=== PATIENT | female | born 1970 | race Caucasian/White ===

== ENCOUNTER 2020-09-08 16:14 | Outpatient (REF) | payer OTHER, SELFPAY ==
[2020-09-08 17:58] LABS: COVID-19 Test Negative (Negative)
== END 2020-09-08 16:15 | disposition home or self-care (01) ==
LOC: HO.LAB 16:14
PROVIDERS: Visit Provider Internal Medicine
DX: Z20.828 Contact with and (suspected) exposure to other viral communicable diseases (principal)
CPT/HCPCS: 87635; C9803

== ENCOUNTER 2021-05-05 08:21 | Outpatient (REF) | payer OTHER, SELFPAY ==
--- NOTE | ~2021-05-05 | MM_ITS ---
EXAMINATION: MM SCREENING DIGITAL BREAST TOMOSYNTHESIS, BILATERAL CLINICAL INFORMATION: Screening. Asymptomatic. The lifetime risk of breast cancer based on the Tyrer-Cuzick Model is 9%. COMPARISON: Mammography: 11/27/2019, outside mammography 02/21/2016, 05/15/2012 ([facility]) TECHNIQUE: Digital breast tomosynthesis is performed in both the craniocaudal and mediolateral oblique views along with computer-aided detection (CAD). Synthesized 2D images are generated from the tomosynthesis. FINDINGS: There are scattered areas of fibroglandular density (ACR BI-RADS breast composition Category b). There are no significant masses, abnormal calcifications, or other abnormalities. There are some small intramammary nodes again seen posterior and central right breast. The axilla and skin contours are unremarkable. No significant changes. MM/MM tomosynthesis screening BI IMPRESSION: No mammographic evidence of malignancy. ASSESSMENT: BI-RADS 2: Benign RECOMMENDATION: Routine annual mammography screening. This patient's information was entered into a reminder system with a target due date for their next mammogram.
== END 2021-05-05 08:22 | disposition home or self-care (01) ==
LOC: HO.MAMMO 08:21
PROVIDERS: PCP Hospitalist; Visit Provider Hospitalist
DX: Z12.31 Encounter for screening mammogram for malignant neoplasm of breast (principal)
CPT/HCPCS: 77063; 77067

== ENCOUNTER 2021-12-25 12:27 | Outpatient (REF) | payer OTHER, SELFPAY | END 2021-12-25 12:28 | disposition home or self-care (01) | LOC: HO.WFDLNP 12:27 | PROVIDERS: Visit Provider Hospitalist | DX: R89.0 Abnormal level of enzymes in specimens from other organs, systems and tissues (principal); R82.90 Unspecified abnormal findings in urine | CPT/HCPCS: 87086; 87147 ==

== ENCOUNTER 2021-12-26 07:53 | Outpatient (REF) | payer OTHER, SELFPAY ==
[2021-12-26 11:47] LABS: Hematocrit 44.2 % (37.0-47.0); Hemoglobin 14.7 g/dl (12.0-16.0); Mean Corpuscular HGB Conc 33.3 g/dl (31.0-35.0); Mean Corpuscular Hemoglobin 30.2 pg (27.0-33.0); Mean Corpuscular Volume 90.8 fL (80.0-98.0); Platelet Count 266 X10*3/uL (160-400); Red Blood Count 4.87 X10*6/uL (4.20-5.50); Red Cell Distribution Width 13.5 % (11.0-16.0); White Blood Count 3.8 X10*3/uL (4.8-10.8)
[2021-12-26 12:34] LABS: TSH reflex Free T4 1.15 uIU/mL (0.32-4.0)
[2021-12-26 12:51] LABS: Alanine Aminotransferase 8 U/L (0-31); Albumin Level 4.3 g/dL (3.5-5.0); Alkaline Phosphatase 78 U/L (39-117); Anion Gap 17 (12-20); Aspartate Amino Transferase 16 U/L (5-31); Bilirubin Total 0.8 mg/dL (0.0-1.0); Blood Urea Nitrogen 15 mg/dL (9-16); Calcium 9.5 mg/dL (8.4-10.2); Carbon Dioxide 23 mmol/L (22-29); Chloride 103 mmol/L (96-108); Cholesterol 216 mg/dL; Estimated Glomerular Filt Rate > 60; Glucose Fasting 83 mg/dL (60-99); HDL Cholesterol 50 mg/dL; LDL Cholesterol Calculated 152 mg/dl; Potassium 4.5 mmol/L (3.3-5.1); Sodium 138 mmol/L (135-145); Total Protein 7.5 g/dL (6.5-8.0); Triglycerides 70 mg/dL
== END 2021-12-26 07:54 | disposition home or self-care (01) ==
LOC: HO.WFDLDS 07:53
PROVIDERS: Visit Provider Hospitalist
DX: Z00.00 Encounter for general adult medical examination without abnormal findings (principal)
CPT/HCPCS: 36415; 80053; 80061; 84443; 85027

== ENCOUNTER 2022-02-13 08:24 | Outpatient (REF) | payer OTHER, SELFPAY ==
[2022-02-13 11:54] LABS: Baso%MD 0.7 %; Eos%MD 0.9 %; Hematocrit 42.7 % (37.0-47.0); Hemoglobin 14.6 g/dl (12.0-16.0); IG%MD 0.2 %; Mean Corpuscular HGB Conc 34.2 g/dl (31.0-35.0); Mean Corpuscular Hemoglobin 30.4 pg (27.0-33.0); Mono%MD 8.8 %; Neut%MD 67.4 %; Platelet Count 264 X10*3/uL (160-400); Red Cell Distribution Width 13.3 % (11.0-16.0); White Blood Count 5.6 X10*3/uL (4.8-10.8)
[2022-02-13 12:17] LABS: Alanine Aminotransferase 11 U/L (0-31); Albumin Level 4.2 g/dL (3.5-5.0); Alkaline Phosphatase 81 U/L (39-117); Anion Gap 13 (12-20); Aspartate Amino Transferase 12 U/L (5-31); Bilirubin Total 0.6 mg/dL (0.0-1.0); Blood Urea Nitrogen 11 mg/dL (9-16); Calcium 9.5 mg/dL (8.4-10.2); Carbon Dioxide 24 mmol/L (22-29); Chloride 107 mmol/L (96-108); Estimated Glomerular Filt Rate > 60; Glucose Random 88 mg/dL (60-115); Iron 102 mcg/dL (30-160); Percent Iron Saturation 29 % (15-50); Sodium 140 mmol/L (135-145); Total Iron Binding Capacity 348 mcg/dL (228-428); Unsaturated Iron Binding 246 ug/dL
[2022-02-13 12:38] LABS: Ferritin 35 ng/mL (10-250)
[2022-02-13 13:45] LABS: Band Neutrophils Percent 1 % (3-5); Eosinophils Absolute Manual 0.1 X10*3/uL (0.0-0.4); Eosinophils Percent Manual 1 % (0-4); Lymphocytes Absolute Manual 1.2 X10*3/uL (1.2-4.9); Lymphocytes Percent Manual 22 % (20-40); Monocytes Absolute Manual 0.3 X10*3/uL (0.1-1.2); Monocytes Percent Manual 5 % (2-11); Neutrophils Percent Manual 71 % (45-73)
[2022-02-13 13:46] LABS: Large Platelet PRESENT; Platelet Estimate NORMAL (NORMAL); Platelet Morphology Comment NOTED; RBC Morphology NORMAL
== END 2022-02-13 08:25 | disposition home or self-care (01) ==
LOC: HO.LAB 08:24
PROVIDERS: PCP Hospitalist; Visit Provider Nurse Practitioner Family
DX: G35 Multiple sclerosis (principal); R25.1 Tremor, unspecified; R53.83 Other fatigue; Z88.0 Allergy status to penicillin; Z79.899 Other long term (current) drug therapy
CPT/HCPCS: 36415; 80053; 82728; 83540; 85007; 85027

== ENCOUNTER 2022-02-27 16:23 | Outpatient (REF) | payer OTHER, SELFPAY ==
--- NOTE | ~2022-02-27 | MR_ITS ---
EXAMINATION: MR BRAIN WITHOUT AND WITH CONTRAST CLINICAL INFORMATION: Multiple sclerosis. COMPARISON: Brain MRI 10/09/2019. TECHNIQUE: Multiplanar, multisequence imaging of the brain was performed before and after the intravenous administration of 7.5 mL of Gadavist. FINDINGS: Multiple scattered foci of T2/FLAIR hyperintensity are seen within the periventricular and deep cerebral white matter. There is prominent ovoid focus of T2/FLAIR signal juxtacortical to the corpus callosum. The signal abnormality appears stable compared with 10/09/2019 without evidence of new or progressive abnormalities. No abnormal enhancement is seen. There is no acute infarction, hemorrhage, mass, or extra-axial fluid collection. The ventricular caliber is stable without hydrocephalus. No progressive volume loss is seen. The major arterial flow voids are preserved at the skull base. The orbital contents appear normal. The extracranial structures are within normal limits. MR/MR head/brain wo/w con IMPRESSION: Foci of signal abnormality within the supratentorial white matter appear stable compared with prior and compatible with demyelinating plaques. No evidence of abnormal enhancement. No progressive changes compared with 2019.
== END 2022-02-27 16:24 | disposition home or self-care (01) ==
LOC: HO.MRI 16:23
PROVIDERS: Visit Provider Nurse Practitioner Family
DX: G35 Multiple sclerosis (principal); R25.1 Tremor, unspecified
CPT/HCPCS: 70553; A9585

== ENCOUNTER 2022-03-19 09:41 | Day surgery (SDC) | payer OTHER, SELFPAY ==
[2022-03-13 19:35] VITALS: BMI 29.0
--- NOTE | 2022-03-16 12:35 | HO.ANESPROP2 ---
Documented by User: Shazia Cole NP 03/16/22 12:47 HPI - Anesthesia Eval Consult details Narrative: 51yo F for Colonoscopy PMFSH Active Problems Active Problems: All Active Problems (Updated 03/14/22 @ 09:40 by Michelle Julio RN) Multiple sclerosis (Acute) Fatigue (Acute) Normal physical exam (Acute) Overweight (Acute) Chronic GERD (Acute) Abnormal urinalysis (Acute) Tremor (Acute) Restless leg syndrome (Acute) Past Medical History Medical History Chronic constipation GERD (gastroesophageal reflux disease) Multiple sclerosis Palpitations Family History Family History Other Mental health disorder Substance use disorder Surgical History Surgical History History of endometrial ablation Social History Social History (Updated 02/13/22 @ 08:43 by Brian Quiroga) Housing: House Alcohol intake: never Patient Tobacco Use Status: Never used Tobacco Are you DNR?: No Advance Directives: No Advance Directives Information Provided: No Advance Directives on File: No Recently lost weight without trying: No Nutrition Risks: No Nutritional Risk Patient : No Current occupational status: employed Meds Allergies Allergy/AdvReac Type Severity Reaction Status Date / Time Penicillins [PENICILLINS] Allergy Intermediate RASH Verified 03/19/22 10:25 Home Medications Medication Instructions Recorded Confirmed Last Taken Type omeprazole 20 mg capsule,delayed 40 mg PO BID cap 02/13/22 03/13/22 03/19/22 04:30 History release ferrous sulfate 325 mg (65 mg 325 mg PO DIRECTED 03/19/22 03/19/22 Unknown History iron) tablet Exam Exam Date and Time: March 16, 2022 1235 Height,Weight and Vital Signs: Height 5 ft 3 in Weight 74.389 kg Pertinent Lab Results Pertinent Lab Results: Laboratory Tests 02/13/22 02/13/22 10:26 10:26 WBC 5.6 Hgb 14.6 Hct 42.7 Plt Count 264 Sodium 140 Potassium 4.0 Chloride 107 Carbon Dioxide 24 BUN 11 Creatinine 0.72 Assessment and Plan Assessment Anesthesia Assessment: Chart Reviewed Documented by User: Julisa Alvarenga MD 03/19/22 10:57 [facility] Past Medical History Medical History Chronic constipation GERD (gastroesophageal reflux disease) Multiple sclerosis Palpitations Family History Family History Other Mental health disorder Substance use disorder Family history of problems with anesthesia: No Surgical History Surgical History History of endometrial ablation History of Problems with Anesthesia: No Social History Social History (Updated 02/13/22 @ 08:43 by Brian Quiroga) Housing: House Alcohol intake: never Patient Tobacco Use Status: Never used Tobacco Are you DNR?: No Advance Directives: No Advance Directives Information Provided: No Advance Directives on File: No Recently lost weight without trying: No Nutrition Risks: No Nutritional Risk Patient : No Current occupational status: employed Meds Allergies Allergy/AdvReac Type Severity Reaction Status Date / Time Penicillins [PENICILLINS] Allergy Intermediate RASH Verified 03/19/22 10:25 Home Medications Medication Instructions Recorded Confirmed Last Taken Type omeprazole 20 mg capsule,delayed 40 mg PO BID cap 02/13/22 03/13/22 03/19/22 04:30 History release ferrous sulfate 325 mg (65 mg 325 mg PO DIRECTED 03/19/22 03/19/22 Unknown History iron) tablet Exam Airway Mallampati Class: II (Top permanent bridge 2 teeth) TM Dist: >3cm Neck ROM: Full Heart: rrr Lungs: cta Assessment and Plan Assessment Anesthesia Assessment: Anesthesia Plan Discussed and Chart Reviewed Final Anesthetic Review Family History of Problems with Anesthesia: No History of Problems with Anesthesia: No NPO: Yes ASA Class: II Final Preanesthetic Review: No Changes in Pt Med Stat, Meds/Allgs Chart Reviewed and Consent Obtained/Reviewed Patient Risk: Intermediate Procedure Risk: Intermediate Anesthetic Plan Anesthetic Plan: MAC: Disposition: Standard PACU
[2022-03-19 10:25] VITALS: BP 147/92; PULSE 87; RESP 15; TEMP 37; O2SAT 98
[2022-03-19] MEDS: Lactated Ringers 1,000 ML 100 ML IVCONT (10:42)
--- NOTE | 2022-03-19 10:57 | MHC.SHP ---
Pre-Procedural Eval Section A Date of Service: 03/19/22 The patient is an INPATIENT: No The History & Physical has been completed within 30 days and I have reviewed it.: No Section B Chief Complaint: screening Details of Present Illness: Colon cancer screening Relevant Family History (Specify if Yes): Yes Relevant Social History: None Present Medications: see Short Stay Collaborative assessment Medical History: Significant History (MS, RSS, GERD) History of Previous Operations: Relevant previous surgery/procedure and date(s) (History of endometrial ablation) Allergies: Allergies Allergy/AdvReac Type Severity Reaction Status Date / Time Penicillins [PENICILLINS] Allergy Intermediate RASH Verified 03/19/22 10:25 Review of Systems Sugical H&P ROS: Negative: Constitution, Cardiovascular and Respiratory and Yes, Specify: Gastrointestinal (chronic constipation) Exam Surgical H&P Exam: Normal: Heart, Normal: Lungs, Normal: Extremities and Normal: Abdomen Plan Diagnosis/Plan: Unchanged I have reviewed the history and physical and performed a pertinent physical examination on my patient. No changes have occurred unless specified.
--- NOTE | 2022-03-19 10:59 | PM.OP ---
Brief Operative Note Date of Service: 03/19/22 Pre-op diagnosis: Colon cancer screening, chronic constipation, family history of colon polyps Post-op diagnosis: other (Colon polyps, diverticulosis, hemorrhoids) Procedure: COLONOSCOPY TILL CECUM WITH BIOPSIES AND SNARE POLYPECTOMY Consent: Indications for the procedure and potential complications of bleeding, perforation, reaction to medications and missed diagnosis were discussed with the patient and informed consent was obtained. Instrument: Olympus PCF H 190 L variable stiffness pediatric colonoscope Monitoring: Vital signs and clinical assessment, intermittent blood pressure monitoring, continuous EKG monitoring, Pulse oximetry and Carbon Dioxide monitoring were done throughout the procedure. Colon withdrawl time was 19 minutes. Procedure: The patient was placed in the left lateral decubitis position and pre-procedure medications were administered. After a digital rectal examination of the ano-rectum, the video colonoscope was inserted into the rectum and advanced through the colon to the cecum. The colonoscope was slowly withdrawn in a retrograde panoramic fashion and the colon mucosa was carefully examined including a retroflexed view of the rectum. Findings and interventions are described below. Procedure Difficulty: Colon was long and tortuous and there was some loop formation Findings: Terminal Ileum: Not evaluated Cecum: Normal Ascending Colon: Normal Transverse Colon: A 4-5 mm sessile polyp removed with a cold biopsy Descending Colon: Moderate diverticulosis Sigmoid Colon: Moderate diverticulosis Rectum: A 10 mm sessile polyp removed with the cold snare Ano-rectum: Small internal hemorrhoids Colon preparation: Excellent Impression and Post Procedure Diagnosis: Colonoscopy Findings: Two small to medium sized polyps removed Moderate diverticulosis seen in the left colon Small hemorrhoids on retroflexed exam. Plan: Letter will be sent pathology results Repeat Colonoscopy interval based on path results - in 5 years if polyps are adenomatous and due to family hx of colon polyps. (Adult colonoscope for future colonoscopies) Colon polyps and diverticulosis handouts were given in the discharge area Surgeon: hSaree Mares MD Anesthesia: MAC (Dr Lopez) Was an Diplomatic Officer used for this Procedure?: Yes Diplomatic Officer: Kwame Ortega Estimated blood loss (mL): 0 Pathology: other (A. TRANSVERSE COLON POLYP B- RECTAL POLYP) Condition: stable Disposition: PACU
--- NOTE | 2022-03-19 11:02 | W.PM.OPN ---
Operative Note Operative Note Date of Service: 03/19/22 Narrative: Pre-op diagnosis: Colon cancer screening, chronic constipation, family history of colon polyps Post-op diagnosis:?other (Colon polyps, diverticulosis, hemorrhoids) Procedure: COLONOSCOPY TILL CECUM WITH BIOPSIES AND SNARE POLYPECTOMY Consent: Indications for the procedure and potential complications of bleeding, perforation, reaction to medications and missed diagnosis were discussed with the patient and informed consent was obtained. Instrument: Olympus PCF H 190 L variable stiffness pediatric colonoscope Monitoring: Vital signs and clinical assessment, intermittent blood pressure monitoring, continuous EKG monitoring, Pulse oximetry and Carbon Dioxide monitoring were done throughout the procedure. Colon withdrawl time was 19 minutes. Procedure: The patient was placed in the left lateral decubitis position and pre-procedure medications were administered. After a digital rectal examination of the ano-rectum, the video colonoscope was inserted into the rectum and advanced through the colon to the cecum. The colonoscope was slowly withdrawn in a retrograde panoramic fashion and the colon mucosa was carefully examined including a retroflexed view of the rectum. Findings and interventions are described below. Procedure Difficulty:? Colon was long and tortuous and there was some loop formation Findings: Terminal Ileum: Not evaluated Cecum:? Normal Ascending Colon:? Normal Transverse Colon:? A 4-5 mm sessile polyp removed with a cold biopsy Descending Colon:? Moderate diverticulosis Sigmoid Colon:? Moderate diverticulosis Rectum:? A 10 mm sessile polyp removed with the cold snare Ano-rectum:? Small internal hemorrhoids Colon preparation: Excellent ? Impression and Post Procedure Diagnosis: Colonoscopy Findings: Two small to medium sized polyps removed Moderate diverticulosis seen in the left colon Small hemorrhoids on retroflexed exam. Plan: Letter will be sent pathology results Repeat Colonoscopy interval based on path results - in 5 years if polyps are adenomatous and due to family hx of colon polyps. (Adult colonoscope for future colonoscopies) Colon polyps and diverticulosis handouts were given in the discharge area Surgeon: Sharee Mares MD Anesthesia:?MAC (Dr Lopez) Was an Learning And Development Assistant used for this Procedure?:?Yes Learning And Development Assistant:?Kwame Ortega Estimated blood loss (mL):?0 Pathology:?other (A. TRANSVERSE COLON POLYP? B- RECTAL POLYP) Condition:?stable Disposition:?PACU
[2022-03-19 11:48] VITALS: BP 113/75; PULSE 83; RESP 16; TEMP 36.6; O2SAT 99
[2022-03-19 12:03] VITALS: BP 138/76; PULSE 60; RESP 16; TEMP 36.2; O2SAT 100
== END 2022-03-19 12:49 | disposition home or self-care (01) ==
PROVIDERS: PCP Hospitalist; Visit Provider Internal Medicine Gastroenterology
PROC: 0DJD8ZZ Inspection of Lower Intestinal Tract, Via Natural or Artificial Opening Endoscopic (ICD-10-PCS; CPT 45378; principal; 2022-03-19 11:00)
DX: Z12.11 Encounter for screening for malignant neoplasm of colon (principal); Z83.71 Family history of colonic polyps; D12.8 Benign neoplasm of rectum; K63.5 Polyp of colon; K59.09 Other constipation; K57.30 Diverticulosis of large intestine without perforation or abscess without bleeding; K64.8 Other hemorrhoids; G35 Multiple sclerosis; R53.83 Other fatigue; K21.9 Gastro-esophageal reflux disease without esophagitis; E66.3 Overweight; Z68.29 Body mass index [BMI] 29.0-29.9, adult; Z79.899 Other long term (current) drug therapy; Z88.0 Allergy status to penicillin
CPT/HCPCS: 45385; 45380; 88305

== ENCOUNTER 2022-05-11 07:24 | Outpatient (REF) | payer OTHER, SELFPAY ==
--- NOTE | ~2022-05-11 | MM_ITS ---
EXAMINATION: MM SCREENING DIGITAL BREAST TOMOSYNTHESIS, BILATERAL CLINICAL INFORMATION: Screening. Asymptomatic. The lifetime risk of breast cancer based on the Tyrer-Cuzick Model is 9%. COMPARISON: Mammography: 05/05/2021, 11/27/2019, 02/21/2016 TECHNIQUE: Digital breast tomosynthesis is performed in both the craniocaudal and mediolateral oblique views along with computer-aided detection (CAD). Synthesized 2D images are generated from the tomosynthesis. FINDINGS: There are scattered areas of fibroglandular density (ACR BI-RADS breast composition Category b). There are no significant masses, abnormal calcifications, or other abnormalities. Parenchymal pattern is similar to prior exams. No developing density. No significant changes. MM/MM tomosynthesis screening BI IMPRESSION: No mammographic evidence of malignancy. ASSESSMENT: BI-RADS 1: Negative RECOMMENDATION: Routine annual mammography screening. This patient's information was entered into a reminder system with a target due date for their next mammogram.
== END 2022-05-11 07:25 | disposition home or self-care (01) ==
LOC: HO.MAMMO 07:24
PROVIDERS: PCP Hospitalist; Visit Provider Hospitalist
DX: Z12.31 Encounter for screening mammogram for malignant neoplasm of breast (principal)
CPT/HCPCS: 77063; 77067

== ENCOUNTER 2022-06-27 12:45 | Outpatient (REF) | payer OTHER, SELFPAY | END 2022-06-27 12:46 | disposition home or self-care (01) | LOC: HO.LAB 12:45 | PROVIDERS: Visit Provider Family Medicine | DX: R39.198 Other difficulties with micturition (principal) | CPT/HCPCS: 87086; 87147 ==

== ENCOUNTER 2022-07-28 08:15 | Outpatient (REF) | payer OTHER, SELFPAY ==
[2022-07-28 09:12] LABS: Eosinophils Absolute Auto 0.3 X10*3/uL (0.0-0.4); Eosinophils Percent Auto 7.7 % (0-4); Hematocrit 40.7 % (37.0-47.0); Hemoglobin 13.7 g/dl (12.0-16.0); Imm Gran Abs Auto 0.01 X10*3/uL (0.00-0.03); Imm Gran Pct Auto 0.3 % (0.0-0.4); Lymphocytes Absolute Auto 0.8 X10*3/uL (1.2-4.9); Lymphocytes Percent Auto 21.4 % (20-40); MANUAL DIFF FLAG SCAN; Mean Corpuscular HGB Conc 33.7 g/dl (31.0-35.0); Mean Corpuscular Hemoglobin 30.2 pg (27.0-33.0); Mean Corpuscular Volume 89.8 fL (80.0-98.0); Mean Platelet Volume 10.9 fL (9.4-12.3); Monocytes Absolute Auto 0.4 X10*3/uL (0.1-1.2); Monocytes Percent Auto 9.8 % (2-11); Neutrophils Absolute Auto 2.3 x10*3/uL (2.0-8.3); Neutrophils Percent Auto 59.8 % (45-73); PLT CLUMP 1; Red Blood Count 4.53 X10*6/uL (4.20-5.50); Red Cell Distribution Width 13.3 % (11.0-16.0); SCAN SMEAR FLAG 1
[2022-07-28 09:14] LABS: Platelet Count 192 X10*3/uL (160-400); White Blood Count 3.8 X10*3/uL (4.8-10.8)
[2022-07-28 09:22] LABS: Alanine Aminotransferase 21 U/L (0-31); Albumin Level 4.3 g/dL (3.5-5.0); Alkaline Phosphatase 60 U/L (39-117); Anion Gap 14 (12-20); Aspartate Amino Transferase 21 U/L (5-31); Bilirubin Total 0.4 mg/dL (0.0-1.0); Blood Urea Nitrogen 14 mg/dL (9-16); Calcium 9.3 mg/dL (8.4-10.2); Carbon Dioxide 25 mmol/L (22-29); Chloride 107 mmol/L (96-108); Estimated Glomerular Filt Rate > 60; Glucose Random 82 mg/dL (60-115); Potassium 4.2 mmol/L (3.3-5.1); Rheumatoid Factor < 15.0 IU/mL (<15.0); Sodium 142 mmol/L (135-145); Total Protein 6.8 g/dL (6.5-8.0)
[2022-07-28 09:36] LABS: SLIDE REVIEW VERIFIED
[2022-07-28 10:06] LABS: Erythrocyte Sedimentation Rate 10 MM/HR (0-20)
[2022-07-30 05:51] LABS: Folate 13.9 ng/mL (> or = 4.0); Vitamin B12 492 pg/mL (200-900)
[2022-07-30 16:21] LABS: Anti Nuclear Antibody Pattern Nuclear, Homogeneous; Anti Nuclear Antibody Screen POSITIVE (NEGATIVE)
[2022-07-30 21:22] LABS: CRP High Sensitivity 2.6 mg/L
== END 2022-07-28 08:16 | disposition home or self-care (01) ==
LOC: HO.LAB 08:15
PROVIDERS: PCP Hospitalist; Visit Provider Nurse Practitioner Family
DX: G35 Multiple sclerosis (principal); R53.83 Other fatigue
CPT/HCPCS: 36415; 80053; 82607; 82746; 85025; 85652; 86038; 86039; 86141; 86431

== ENCOUNTER → 2022-08-09 15:53 | Outpatient (REF) | payer OTHER, SELFPAY | LOC: HO.SL 15:53 | PROVIDERS: PCP Hospitalist; Visit Provider Nurse Practitioner Family | DX: R53.83 Other fatigue (principal); G35 Multiple sclerosis; G47.19 Other hypersomnia; R06.83 Snoring | CPT/HCPCS: 95806 ==

== ENCOUNTER 2022-10-12 09:44 | Outpatient (REF) | payer OTHER, SELFPAY ==
[2022-10-12 10:15] LABS: MANUAL DIFF FLAG NO
[2022-10-12 10:46] LABS: Basophils Percent Auto 0.8 % (0-2); Eosinophils Absolute Auto 0.1 X10*3/uL (0.0-0.4); Eosinophils Percent Auto 2.3 % (0-4); Hemoglobin 14.1 g/dl (12.0-16.0); Imm Gran Abs Auto 0.01 X10*3/uL (0.00-0.03); Imm Gran Pct Auto 0.2 % (0.0-0.4); Lymphocytes Absolute Auto 0.6 X10*3/uL (1.2-4.9); Lymphocytes Percent Auto 12.4 % (20-40); Mean Corpuscular HGB Conc 34.4 g/dl (31.0-35.0); Mean Corpuscular Hemoglobin 30.2 pg (27.0-33.0); Mean Corpuscular Volume 87.8 fL (80.0-98.0); Mean Platelet Volume 10.1 fL (9.4-12.3); Monocytes Absolute Auto 0.4 X10*3/uL (0.1-1.2); Monocytes Percent Auto 7.9 % (2-11); Neutrophils Percent Auto 76.4 % (45-73); Platelet Count 266 X10*3/uL (160-400); Red Blood Count 4.67 X10*6/uL (4.20-5.50); Red Cell Distribution Width 13.5 % (11.0-16.0); White Blood Count 5.2 X10*3/uL (4.8-10.8)
[2022-10-12 10:54] LABS: Appearance Urine Clear; Color Urine Yellow; Glucose Urine UA Negative (Negative); Leukocyte Esterase Urine Small (1+) (Negative); Nitrite Urine Negative (Negative); UMIC TRIGGER UA YES; Urine Blood Negative (Negative); Urine Ketones Trace mg/dL (Negative); Urine Protein Negative (Neg-Trace)
[2022-10-12 11:03] LABS: Bacteria Urine 1+ (None Seen); Hyaline Casts Urine 0-2 /LPF (0-2); RBC Urine 0-2 /HPF (0-2)
[2022-10-12 11:41] LABS: TSH reflex Free T4 1.54 uIU/mL (0.32-4.0)
[2022-10-12 11:45] LABS: Erythrocyte Sedimentation Rate 8 MM/HR (0-20)
[2022-10-12 11:48] LABS: HBc Num1 0.15 S/CO (0.00-0.79); HBsAGNum1 0.28 S/CO (0.00-0.99); Hepatitis A Antibody IgM 0.23 Index (0-0.79); Hepatitis B Core Antibody Nonreactive (Nonreactive); Hepatitis B Surface Antigen Negative (Negative); ~HepC Num1 0.14 S/CO (0.00-0.79); ~Hepatitis A Antibody IgM Nonreactive (Nonreactive); ~Hepatitis C Antibody Nonreactive (Nonreactive)
[2022-10-12 12:00] LABS: Alanine Aminotransferase 39 U/L (0-31); Albumin Level 4.5 g/dL (3.5-5.0); Alkaline Phosphatase 79 U/L (39-117); Anion Gap 16 (12-20); Aspartate Amino Transferase 27 U/L (5-31); Blood Urea Nitrogen 13 mg/dL (9-16); C Reactive Protein 0.32 mg/dL (< or = 0.50); Calcium 9.4 mg/dL (8.4-10.2); Carbon Dioxide 22 mmol/L (22-29); Chloride 105 mmol/L (96-108); Estimated Glomerular Filt Rate > 60; Glucose Random 98 mg/dL (60-115); Rheumatoid Factor < 15.0 IU/mL (<15.0); Sodium 139 mmol/L (135-145); Total Protein 7.2 g/dL (6.5-8.0)
[2022-10-12 12:13] LABS: Thyroid Stimulating Hormone 1.49 uIU/mL (0.32-4.0)
[2022-10-12 12:32] LABS: Bilirubin Total 0.5 mg/dL (0.0-1.0)
[2022-10-12 13:25] LABS: HBS Num2 10.86 mIU/mL (0-7.99); HBS Num3 11.17 mIU/mL (0-7.99); ~Hepatitis B Surface Antibody GRAYZONE (Nonreactive)
[2022-10-12 17:33] LABS: Creatinine Urine 151.73 mg/dL; Protein/Creatinine Ratio, Ur 0.08 (<0.2); Total Protein Urine Random 12 mg/dL (<12)
[2022-10-15 13:38] LABS: Cardiolipin IgG Ab <2.0 GPL-U/mL
[2022-10-15 15:19] LABS: Prot Elec - Albumin 4.4 g/dL (3.8-4.8); Prot Elec - Alpha1 0.3 g/dL (0.2-0.3); Prot Elec - Alpha2 0.7 g/dL (0.5-0.9); Prot Elec - Beta 1 0.5 g/dL (0.4-0.6); Prot Elec - Beta 2 0.3 g/dL (0.2-0.5); Prot Elec - Total Protein 7.2 g/dL (6.1-8.1)
[2022-10-16 07:49] LABS: TS Negative Control Passed; TS Panel A 0; TS Panel B 0; TS Positive Control Passed; TSpotTB Negative (Negative)
[2022-10-16 11:18] LABS: IgA 170 mg/dL (47-310); IgG 974 mg/dL (600-1640)
[2022-10-16 13:34] LABS: Antibody to SS-A Antigen <1.0 NEG AI (<1.0 NEG); Myeloperoxidase Antibody <1.0 AI; Smith Protein <1.0 NEG AI (<1.0 NEG)
[2022-10-17 05:54] LABS: Beta-2 Glycoprotein IgA <2.0 U/mL (<20.0); Beta-2 Glycoprotein IgG <2.0 U/mL (<20.0); Beta-2 Glycoprotein IgM <2.0 U/mL (<20.0)
[2022-10-19 15:09] LABS: Anti DNA DS Antibody <1 IU/mL; Antibody to SS-B Antigen <1.0 NEG AI (<1.0 NEG); Complement C3 146 mg/dL (83-193); DNAds, Crithidia Antibody Negative (Negative); IgM 211 mg/dL (50-300); Proteinase 3 PR3 Antibodies <1.0 AI; SM/Ribonucleoprotein Ab <1.0 NEG AI (<1.0 NEG); Thyroglobulin Antibodies <1 IU/mL (< or = 1); Thyroid Peroxidase Antibodies 1 IU/mL (<9)
[2022-10-21 15:02] LABS: PTT (LAC) Screen 34 sec (<=40)
[2022-10-21 18:39] LABS: Angiotensin Converting Enzyme 48.6 U/L (9-67); Cardiolipin IgM Ab <2.0 MPL-U/mL; Cyclic Citrullinated Peptide <16 UNITS
[2022-10-30 11:31] LABS: Cryoglobulin, Qual NONE DETECTED ((NDT))
== END 2022-10-12 09:45 | disposition home or self-care (01) ==
LOC: HO.LAB 09:44
PROVIDERS: PCP Hospitalist; Visit Provider Student in an Organized Health Care Education/Training Program
DX: R76.8 Other specified abnormal immunological findings in serum (principal); H93.12 Tinnitus, left ear; R53.83 Other fatigue
CPT/HCPCS: 36415; 80053; 81001; 82164; 82550; 82595; 82784; 84156; 84165; 84443; 85025; 85597; 85613; 85652; 85730; 86021; 86140; 86146; 86147; 86160; 86200; 86225; 86235; 86255; 86334; 86376; 86431; 86481; 86704; 86706; 86709; 86800; 86803; 87340

== ENCOUNTER → 2022-11-20 09:21 | Outpatient (BNVA) | payer OTHER, SELFPAY | PROVIDERS: PCP Hospitalist; Visit Provider Nurse Practitioner Family | DX: G35 Multiple sclerosis (principal); R53.83 Other fatigue; G47.19 Other hypersomnia; R06.83 Snoring ==

== ENCOUNTER → 2022-11-23 10:24 | Outpatient (BNVA) | payer OTHER, SELFPAY | PROVIDERS: PCP Hospitalist; Visit Provider Student in an Organized Health Care Education/Training Program | DX: Z13.89 Encounter for screening for other disorder (principal) ==

== ENCOUNTER 2023-01-01 09:07 | Outpatient (REF) | payer OTHER, SELFPAY ==
[2023-01-01 11:15] LABS: Cholesterol 183 mg/dL; HDL Cholesterol 40 mg/dL; LDL Cholesterol Calculated 121 mg/dl; Triglycerides 111 mg/dL
== END 2023-01-01 09:08 | disposition home or self-care (01) ==
LOC: HO.WFDLDS 09:07
PROVIDERS: Visit Provider Nurse Practitioner Family
DX: J32.9 Chronic sinusitis, unspecified (principal)
CPT/HCPCS: 36415; 80061

== ENCOUNTER 2023-01-01 09:08 | Outpatient (REF) | payer OTHER, SELFPAY ==
[2023-01-01 13:01] LABS: Influenza A PCR NEGATIVE (Negative); Influenza B PCR NEGATIVE (Negative); Resp Syncy Virus RNA Qual PCR NEGATIVE (Negative); SARS COV2 PCR INHOUSE NEGATIVE (Negative)
== END 2023-01-01 09:09 | disposition home or self-care (01) ==
LOC: HO.LAB 09:08
PROVIDERS: Visit Provider Nurse Practitioner Family
DX: Z20.822 Contact with and (suspected) exposure to COVID-19 (principal); J32.9 Chronic sinusitis, unspecified
CPT/HCPCS: 0241U

== ENCOUNTER → 2023-02-21 10:25 | Outpatient (BNVA) | payer OTHER, SELFPAY | PROVIDERS: PCP Hospitalist; Visit Provider Student in an Organized Health Care Education/Training Program | DX: Z13.89 Encounter for screening for other disorder (principal) ==

== ENCOUNTER → 2023-03-25 09:21 | Outpatient (BNVA) | payer OTHER, SELFPAY | PROVIDERS: PCP Hospitalist; Visit Provider Nurse Practitioner Family ==

== ENCOUNTER 2023-05-03 09:28 | Outpatient (REF) | payer OTHER, SELFPAY | END 2023-05-03 09:29 | disposition home or self-care (01) | LOC: HO.MRI 09:28 | PROVIDERS: PCP Hospitalist; Visit Provider Nurse Practitioner Family | DX: G35 Multiple sclerosis (principal); M54.2 Cervicalgia | CPT/HCPCS: 70553; 72156; A9585 ==

== ENCOUNTER 2023-05-15 07:25 | Outpatient (REF) | payer OTHER, SELFPAY ==
--- NOTE | ~2023-05-15 | MM_ITS ---
EXAMINATION: MM SCREENING DIGITAL BREAST TOMOSYNTHESIS, BILATERAL CLINICAL INFORMATION: Screening. Asymptomatic. The lifetime risk of breast cancer based on the Tyrer-Cuzick Model is 8.7%. COMPARISON: Mammography: This study is compared with prior exams dating back to 2016. TECHNIQUE: Digital breast tomosynthesis is performed in both the craniocaudal and mediolateral oblique views along with computer-aided detection (CAD). Synthesized 2D images are generated from the tomosynthesis. FINDINGS: There are scattered areas of fibroglandular density (ACR BI-RADS breast composition Category b). There are no significant masses, abnormal calcifications, or other abnormalities. MM/MM tomosynthesis screening BI IMPRESSION: No mammographic evidence of malignancy. ASSESSMENT: BI-RADS BI-RADS 1 - Negative RECOMMENDATION: Routine annual mammography screening. 1 year F/U This examination should not preclude the clinical evaluation of a suspicious palpable abnormality. This patient's information was entered into a reminder system with a target due date for their next mammogram.
== END 2023-05-15 07:26 | disposition home or self-care (01) ==
LOC: HO.MAMMO 07:25
PROVIDERS: PCP Hospitalist; Visit Provider Hospitalist
DX: Z12.31 Encounter for screening mammogram for malignant neoplasm of breast (principal)
CPT/HCPCS: 77063; 77067

== ENCOUNTER → 2023-05-15 07:30 | Outpatient (BNV) | payer OTHER, SELFPAY | PROVIDERS: PCP Hospitalist; Visit Provider Radiology Diagnostic Radiology | DX: Z12.31 Encounter for screening mammogram for malignant neoplasm of breast (principal) | CPT/HCPCS: 77063; 77067 ==

== ENCOUNTER 2023-05-23 08:00 | Outpatient (RCR) | payer OTHER, SELFPAY ==
--- NOTE | 2023-04-24 18:17 | MHC.PT.EP ---
[facility] [place] [facility] [place] [facility] [place] Office [address] Emeterio Allan [address] [phone] F: [phone] F: [phone] F: [phone] F: [phone] Physical Therapy Plan of Care Date of Evaluation: Date of Surgery: N/A Diagnosis: cervicalgia (RL) Assessment: pt is a 53 y/o female presenting to physical therapy w/ referring diagnosis of cervicalgia. pt's signs and symptoms seem consistent w/ poor habitual posturing. Impairments include pain, decreased range of motion, decreased strength, impaired functional mobility, impaired postural awareness, and altered ambulation mechanics. pt is a good candidate for skilled PT due to age, potential remediation of impairments, typical disease/condition progression and prognosis, comorbidities, and motivation. pt would benefit from skilled PT intervention to provide a tailored strengthening and stretching exercise program, functional training, gait training, postural re-training, neuromuscular re-education, modalities as needed for pain, equipment safety demonstration. Frequency and Duration: The patient will be seen 2x/wk for 4 wks Short Term Goals: pt will be I w/ HEP to promote self-management of condition. pt will demo proper sitting posture w/ lumbar roll to promote neutral spine w/ work-related tasks. Correction Goals: pt will report a statistically significant improvement in self-reported outcome measure, NDI, to promote return to PLOF. pt will improve B shoulder extension strength to 5/5 to promote improved postural strength for prolonged sitting. Treatment Plan: Modalities to reduce pain, spasms and effusion. Manual therapy to restore motion and function. Therapeutic exercise to improve strength and flexibility. Neuromuscular re-education for posture and balance. Therapeutic activities to return to functional activities of daily living. Electronically signed by: Julisa Barreto PT, DPT Please sign and return to therapist. Thank you for your referral.
--- NOTE | 2023-06-13 13:18 | MHC.PT.DC ---
[facility] [place] Office [place] Office [place] Office [address] Emeterio Allan [address] [phone] F: [phone] F: [phone] F: [phone] F: [phone] Physical Therapy Discharge Report Diagnosis: cervicalgia (RL) Date of Surgery: N/A Date of Evaluation: 04/24/23 Date of Discharge: 06/13/23 Treatments to Date: 7 Cancellations to Date: 1 No Shows to Date: 0 Discharge Status: Improved Function Independent with HEP Discharge Summary: The patient overall has reported an improvement in her pain intensity and severity. She is independent with her home exercise program and postural adjustments to manage symptoms. She is discharged from this physical therapy plan of care. Electronically signed by: Julisa Barreto PT, DPT Please sign and return to therapist. Thank you for your referral.
== END 2023-06-13 13:18 | disposition home or self-care (01) ==
LOC: HO.PT 08:00
PROVIDERS: PCP Hospitalist; Visit Provider Nurse Practitioner Family
DX: M54.2 Cervicalgia (principal)
CPT/HCPCS: 97110; 97112; 97140; 97162

== ENCOUNTER 2023-05-25 08:44 | Outpatient (REF) | payer OTHER, SELFPAY ==
[2023-05-25 10:23] LABS: Appearance Urine Clear; Color Urine Yellow; Glucose Urine UA Negative (Negative); Leukocyte Esterase Urine Small (1+) (Negative); Nitrite Urine Negative (Negative); UMIC TRIGGER UA YES; Urine Blood Negative (Negative); Urine Ketones Negative (Negative); Urine Protein Negative (Neg-Trace)
[2023-05-25 10:39] LABS: Alanine Aminotransferase 8 U/L (0-31); Albumin Level 4.1 g/dL (3.5-5.0); Alkaline Phosphatase 60 U/L (39-117); Anion Gap 13 (12-20); Aspartate Amino Transferase 11 U/L (5-31); Bilirubin Total 0.5 mg/dL (0.0-1.0); Blood Urea Nitrogen 14 mg/dL (9-16); C Reactive Protein 0.32 mg/dL (< or = 0.50); Calcium 9.8 mg/dL (8.4-10.2); Carbon Dioxide 27 mmol/L (22-29); Chloride 107 mmol/L (96-108); Estimated Glomerular Filt Rate > 60; Glucose Random 135 mg/dL (60-115); Potassium 3.7 mmol/L (3.3-5.1); Sodium 143 mmol/L (135-145); Total Protein 6.9 g/dL (6.5-8.0)
[2023-05-25 10:39] LABS: Bacteria Urine None Seen (None Seen); Hyaline Casts Urine 0-2 /LPF (0-2); RBC Urine 0-2 /HPF (0-2); Squamous Epithelial Cell Urine 0-2 /HPF (0-2); WBC Urine 0-5 /HPF (0-5)
[2023-05-25 10:46] LABS: Creatinine Urine 76.56 mg/dL; Total Protein Urine Random < 7 mg/dL (<12)
[2023-05-25 10:56] LABS: Erythrocyte Sedimentation Rate 14 MM/HR (0-20)
[2023-05-27 19:17] LABS: Anti DNA DS Antibody <1 IU/mL
[2023-05-30 12:58] LABS: Complement C3 150 mg/dL (83-193)
== END 2023-05-25 08:45 | disposition home or self-care (01) ==
LOC: HO.LAB 08:44
PROVIDERS: PCP Hospitalist; Visit Provider Student in an Organized Health Care Education/Training Program
DX: M32.9 Systemic lupus erythematosus, unspecified (principal)
CPT/HCPCS: 36415; 80053; 81001; 84156; 85652; 86140; 86160; 86225

== ENCOUNTER 2023-06-07 07:00 | Outpatient (REF) | payer OTHER, SELFPAY ==
[2023-06-07 07:10] LABS: MANUAL DIFF FLAG NO
[2023-06-07 08:06] LABS: Basophils Percent Auto 0.8 % (0-2); Eosinophils Absolute Auto 0.1 X10*3/uL (0.0-0.4); Eosinophils Percent Auto 2.8 % (0-4); Hemoglobin 12.9 g/dl (12.0-16.0); Imm Gran Abs Auto 0.01 X10*3/uL (0.00-0.03); Imm Gran Pct Auto 0.3 % (0.0-0.4); Lymphocytes Absolute Auto 0.7 X10*3/uL (1.2-4.9); Lymphocytes Percent Auto 18.3 % (20-40); Mean Corpuscular HGB Conc 33.1 g/dl (31.0-35.0); Mean Corpuscular Hemoglobin 29.5 pg (27.0-33.0); Mean Corpuscular Volume 89.2 fL (80.0-98.0); Mean Platelet Volume 10.9 fL (9.4-12.3); Monocytes Absolute Auto 0.4 X10*3/uL (0.1-1.2); Monocytes Percent Auto 9.5 % (2-11); Neutrophils Absolute Auto 2.7 x10*3/uL (2.0-8.3); Neutrophils Percent Auto 68.3 % (45-73); Platelet Count 222 X10*3/uL (160-400); Red Blood Count 4.37 X10*6/uL (4.20-5.50); Red Cell Distribution Width 13.7 % (11.0-16.0); White Blood Count 3.9 X10*3/uL (4.8-10.8)
[2023-06-07 08:49] LABS: C Reactive Protein 0.29 mg/dL (< or = 0.50)
== END 2023-06-07 07:01 | disposition home or self-care (01) ==
LOC: HO.LAB 07:00
PROVIDERS: PCP Hospitalist; Visit Provider Student in an Organized Health Care Education/Training Program
DX: M32.9 Systemic lupus erythematosus, unspecified (principal)
CPT/HCPCS: 36415; 85025; 86140

== ENCOUNTER 2023-06-11 07:27 | Outpatient (AMB) | payer OTHER, SELFPAY ==
[2023-06-11 07:39] VITALS: BP 119/82; PULSE 78; TEMP 36.6; BMI 29.3
--- NOTE | 2023-06-11 07:39 | A.OFFVIS_ITS ---
Intake Vital Signs 06/11/23 07:39 Height 5 ft 3 in Weight 165 lb 5.547 oz BMI 29.3 BP 119/82 Blood Pressure Location Rt brachial Position Sitting Pulse 78 Pulse Source Palpation Temp 97.8 F Temp Source Temporal Artery Scan Intake Visit Reasons: UCTD Allergies Penicillins [PENICILLINS] Allergy (Intermediate, Verified 03/25/23 09:26) RASH Medication List - Last Reconciled 06/11/23 by Robert Campbell MD clindamycin phosphate 1% topical BID PRN diroximel fumarate (Vumerity) 462 mg (2 x 231 mg) PO BID 30 days ferrous sulfate 325 mg PO DIRECTED fluticasone propionate 50 mcg/actuation (Flonase Allergy Relief) 1 spray intranasal Q12H 30 days gabapentin 200 mg (2 x 100 mg) PO BEDTIME 90 days hydroxychloroquine 1 tab twice daily 5 days a week & 1 tab daily Saturday & saturday ibuprofen 400 mg PO BID magnesium oxide 400 mg PO BEDTIME 30 days omeprazole 20 mg PO BID HPI HPI Comments History of Present Illness Details 53-year-old female with UCTD/mild SLE returns for follow-up. Continues to take hydroxychloroquine 400 mg daily. Feels about the same overall. States that she gets intermittent rashes on her arms and back. Occasionally itchy. She also gets intermittent nasal ulcers that sometimes last about 1 week. She a cream that contains in news poor and lidocaine which helped. It happened once over the last 4 months. She denies any mouth ulcers or blood/froth in urine Initial history: This is a 52-year-old female who presents for evaluation of a positive SHARA. Patient stated that since her teens she has had intermittent pain and fatigue. 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 She was started on Plaquenil and she took it for about 6 years which significantly controlled her pain and fatigue. In 2019 she developed left footdrop and was eventually diagnosed with MS. She is following up with Neurology and her MS is currently well controlled. Currently her main complaint is generalized fatigue. She is unable to exercise. She has been taking plenty of NSAIDs. She has some pain in some areas when touched especially in her lower back as well as pain on the outside of her hips and the inside of her knees. She also has been having ringing in her left ear. She is due to see ENT soon. Her mother was diagnosed with rheumatoid arthritis and her father had lupus manifested by skin rashes. [facility] Medical History Chronic constipation GERD (gastroesophageal reflux disease) Multiple sclerosis Palpitations Surgical History History of endometrial ablation Family History Mother Uterus cancer Rheumatoid arthritis Fibromyalgia CAD (coronary artery disease) Angina pectoris, unspecified Father Lupus Brain aneurysm Sister Cervical cancer Maternal Aunt Breast cancer, Onset Age: 35 Other Mental health disorder Substance use disorder Social History Household Members: Spouse Housing: House Alcohol intake: never Patient Tobacco Use Status: Never used Tobacco service: No Current occupational status: employed Current occupation: [employer] Current occupational exposures/hazards: No Sexual orientation: Straight/Heterosexual Gender identity: Female Review of Systems ENT Details: Nasal ulcers Skin/Breast Reports rash Physical Exam Vital Signs: Last Vital Signs Temp 97.8 F 06/11/23 07:39 Pulse 78 06/11/23 07:39 BP 119/82 06/11/23 07:39 BMI result Body Mass Index 29.3 Const General: cooperative, healthy appearing, comfortable, no acute distress and well developed Nutritional Appearance: overweight Orientation/consciousness: patient oriented x3 Limitations: no limitations HEENT Head: Yes normocephalic and Yes atraumatic Mouth: moist mucous membranes Resp Effort & Inspection: normal respiratory effort and able to speak in complete sentences GI Inspection: No distended Palpation (GI): Soft to palpation and nontender Skin Other: To small round skin rashes measuring about 1 mm in diameter on left arm & 2 on her upper back Neuro General: patient oriented x3 Extrem Other: No synovitis Normal nailfold capillaroscopy Assessment & Plan Assessment & Plan (1) Lupus (systemic lupus erythematosus): Comment: vs UCTD (+ SHARA, painless oral ulcers, multiple sclerosis, fatigue, generalized pain) dx 2006 was on HCQ for a few years with improvement Hydroxychloroquine restarted on11/26 with significant improvement Code(s): M32.9 - Systemic lupus erythematosus, unspecified Qualifiers: Systemic lupus erythematosus type: unspecified Systemic lupus erythematosus organ involvement: other Qualified Code(s): M32.19 - Other organ or system involvement in systemic lupus erythematosus Plan: This is a 53-year-old female with mild lupus/UCTD (+ SHARA, multiple sclerosis, painless oral ulcers, nasal ulcers, fatigue, generalized pain)?presents for follow-up.? Doing well overall. Labs are stable. On occasion gets intermittent rashes on arms and upper back as well as nasal ulcers that self-resolve in a few days. If patient continues to get more frequent mucocutaneous lesions, will consider more aggressive therapy. Advised patient to take hydroxychloroquine 400 mg for 5 days a week and 200 mg 2 days a week Labs before next visit in 4 months (2) Long-term use of hydroxychloroquine: Code(s): Z79.899 - Other retirement (current) drug therapy Plan: Discussed risks of retinopathy with hydroxychloroquine. Patient was evaluated by an mail machine operator recently and cleared to continue hydroxychloroquine. Continue to follow-up with ophthalmology Plan I spent 23 minutes reviewing patient's chart, evaluating patient, ordering diagnostic workup, counseling patient and documenting in the chart Orders: Orders Comprehensive Met. Panel 4 Months M32.9 - Systemic lupus erythematosus, unspecified C Reactive Protein 4 Months M32.9 - Systemic lupus erythematosus, unspecified Protein Creatinine Ratio, Ur 4 Months M32.9 - Systemic lupus erythematosus, unspecified Complete Blood Count Auto Diff 4 Months M32.9 - Systemic lupus erythematosus, unspecified Erythrocyte Sedimentation Rate 4 Months M32.9 - Systemic lupus erythematosus, unspecified Complement C3 4 Months M32.9 - Systemic lupus erythematosus, unspecified Complement C4 4 Months M32.9 - Systemic lupus erythematosus, unspecified Anti DNA DS Antibody 4 Months M32.9 - Systemic lupus erythematosus, unspecified UA w Microscopic 4 Months M32.9 - Systemic lupus erythematosus, unspecified Coding Level of Care Code Est Pt Level 4 (28743) Diagnoses Lupus (systemic lupus erythematosus) M32.19 Systemic lupus erythematosus type: unspecified Systemic lupus erythematosus organ involvement: other Long-term use of hydroxychloroquine Z79.899
== END 2023-06-11 07:51 | disposition home or self-care (01) ==
PROVIDERS: PCP Hospitalist; Visit Provider Student in an Organized Health Care Education/Training Program
DX: M32.19 Other organ or system involvement in systemic lupus erythematosus (principal); Z79.899 Other long term (current) drug therapy
CPT/HCPCS: 99214

== ENCOUNTER → 2023-06-11 07:27 | Outpatient (BNVA) | payer OTHER, SELFPAY | PROVIDERS: PCP Hospitalist; Visit Provider Student in an Organized Health Care Education/Training Program ==

== ENCOUNTER 2023-10-05 07:12 | Outpatient (REF) | payer OTHER, SELFPAY ==
[2023-10-05 07:37] LABS: MANUAL DIFF FLAG NO
[2023-10-05 08:14] LABS: Basophils Percent Auto 0.8 % (0-2); Eosinophils Absolute Auto 0.1 X10*3/uL (0.0-0.4); Eosinophils Percent Auto 1.9 % (0-4); Hematocrit 41.1 % (37.0-47.0); Hemoglobin 13.8 g/dl (12.0-16.0); Imm Gran Abs Auto 0.01 X10*3/uL (0.00-0.03); Imm Gran Pct Auto 0.3 % (0.0-0.4); Lymphocytes Absolute Auto 0.8 X10*3/uL (1.2-4.9); Lymphocytes Percent Auto 20.5 % (20-40); Mean Corpuscular HGB Conc 33.6 g/dl (31.0-35.0); Mean Corpuscular Hemoglobin 30.2 pg (27.0-33.0); Mean Corpuscular Volume 89.9 fL (80.0-98.0); Mean Platelet Volume 10.4 fL (9.4-12.3); Monocytes Absolute Auto 0.4 X10*3/uL (0.1-1.2); Monocytes Percent Auto 9.7 % (2-11); Neutrophils Absolute Auto 2.5 x10*3/uL (2.0-8.3); Neutrophils Percent Auto 66.8 % (45-73); Platelet Count 245 X10*3/uL (160-400); Red Blood Count 4.57 X10*6/uL (4.20-5.50); Red Cell Distribution Width 13.2 % (11.0-16.0); White Blood Count 3.7 X10*3/uL (4.8-10.8)
[2023-10-05 08:15] LABS: Appearance Urine Clear; Color Urine Yellow; Glucose Urine UA Negative (Negative); Leukocyte Esterase Urine Trace (Negative); Nitrite Urine Negative (Negative); Specific Gravity - Urine >= 1.030 (1.005-1.025); UMIC TRIGGER UA YES; Urine Blood Negative (Negative); Urine Ketones Negative (Negative); Urine Protein Trace mg/dL (Neg-Trace)
[2023-10-05 08:20] LABS: Bacteria Urine None Seen (None Seen); Hyaline Casts Urine 0-2 /LPF (0-2); RBC Urine 0-2 /HPF (0-2); WBC Urine 0-5 /HPF (0-5)
[2023-10-05 08:39] LABS: Alanine Aminotransferase 9 U/L (0-31); Albumin Level 4.2 g/dL (3.5-5.0); Alkaline Phosphatase 56 U/L (39-117); Anion Gap 10 (12-20); Aspartate Amino Transferase 15 U/L (5-31); Bilirubin Total 0.6 mg/dL (0.0-1.0); Blood Urea Nitrogen 17 mg/dL (9-16); C Reactive Protein 0.18 mg/dL (< or = 0.50); Calcium 9.1 mg/dL (8.4-10.2); Carbon Dioxide 25 mmol/L (22-29); Chloride 109 mmol/L (96-108); Estimated Glomerular Filt Rate > 60; Glucose Random 87 mg/dL (60-115); Potassium 3.9 mmol/L (3.3-5.1); Sodium 140 mmol/L (135-145); Total Protein 7.1 g/dL (6.5-8.0)
[2023-10-05 09:01] LABS: Erythrocyte Sedimentation Rate 10 MM/HR (0-20)
[2023-10-05 10:34] LABS: Creatinine Urine 206.36 mg/dL; Protein/Creatinine Ratio, Ur 0.06 (<0.2); Total Protein Urine Random 13 mg/dL (<12)
[2023-10-07 18:18] LABS: Complement C3 103 mg/dL (83-193)
[2023-10-07 19:13] LABS: Anti DNA DS Antibody <1 IU/mL
== END 2023-10-05 07:13 | disposition home or self-care (01) ==
LOC: HO.LAB 07:12
PROVIDERS: Visit Provider Student in an Organized Health Care Education/Training Program
DX: M32.9 Systemic lupus erythematosus, unspecified (principal)
CPT/HCPCS: 36415; 80053; 81001; 82570; 84156; 85025; 85652; 86140; 86160; 86225

== ENCOUNTER 2023-10-11 07:39 | Outpatient (AMB) | payer OTHER, SELFPAY ==
--- NOTE | 2023-10-11 07:43 | MHC.OFFVIS ---
Intake Vital Signs 10/11/23 07:44 Height 5 ft 3 in Weight 174 lb 13.225 oz BMI 31.0 BP 122/60 Blood Pressure Location Lt brachial Position Sitting Pulse 88 Pulse Source Pulse Oximeter Temp 97 F Temp Source Skin Pulse Oximetry (%) 98 Oxygen Delivery Method Room Air Intake Visit Reasons: SLE Intake Note: Pt last seen 06/11/23, presents today for follow up and test results. Lump Room Supervisor Required: No Accompanied by: Self / Same As Patient Allergies Penicillins [PENICILLINS] Allergy (Intermediate, Verified 10/11/23 07:47) RASH Medication List - Last Reconciled 10/11/23 by Robert Campbell MD clindamycin phosphate 1% topical BID PRN diroximel fumarate (Vumerity) 462 mg (2 x 231 mg) PO BID 30 days fluticasone propionate 50 mcg/actuation (Flonase Allergy Relief) 1 spray intranasal Q12H 30 days gabapentin 200 mg (2 x 100 mg) PO BEDTIME 90 days hydroxychloroquine 1 tab twice daily 5 days a week & 1 tab daily Saturday & saturday ibuprofen 400 mg PO BID magnesium oxide 400 mg PO BEDTIME 30 days omeprazole 20 mg PO BID HPI HPI Comments History of Present Illness Details 53-year-old female with UCTD/mild SLE returns for follow-up. Remains on hydroxychloroquine. She states that she feels about the same overall. Her main complaint is lack of energy. She states that recently she was in [place] with her family, visiting the [place], she was not able to walk with her family. She had to sit most of the time. She continues to get intermittent rashes on her upper back, neck, shoulders, mildly itchy. She denies any pain. Initial history: This is a 52-year-old female who presents for evaluation of a positive SHARA. Patient stated that since her teens she has had intermittent pain and fatigue. 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 She was started on Plaquenil and she took it for about 6 years which significantly controlled her pain and fatigue. In 2018 she developed left footdrop and was eventually diagnosed with MS. She is following up with Neurology and her MS is currently well controlled. Currently her main complaint is generalized fatigue. She is unable to exercise. She has been taking plenty of NSAIDs. She has some pain in some areas when touched especially in her lower back as well as pain on the outside of her hips and the inside of her knees. She also has been having ringing in her left ear. She is due to see ENT soon. Her mother was diagnosed with rheumatoid arthritis and her father had lupus manifested by skin rashes. [facility] Medical History Multiple sclerosis GERD (gastroesophageal reflux disease) Chronic constipation Palpitations Surgical History History of endometrial ablation Family History Mother Uterus cancer Rheumatoid arthritis Fibromyalgia CAD (coronary artery disease) Angina pectoris, unspecified Father Lupus Brain aneurysm Sister Cervical cancer Maternal Aunt Breast cancer, Onset Age: 35 Other Mental health disorder Substance use disorder Social History Household Members: Spouse Housing: House Alcohol intake: never Patient Tobacco Use Status: Never used Tobacco service: No Current occupational status: employed Current occupation: [employer] [place] Current occupational exposures/hazards: No Sexual orientation: Straight/Heterosexual Gender identity: Female Review of Systems Const Reports fatigue Skin/Breast Reports rash Endo Reports fatigue Physical Exam Vital Signs: Last Vital Signs Temp 97 F 10/11/23 07:44 Pulse 88 10/11/23 07:44 BP 122/60 10/11/23 07:44 Pulse Ox 98 10/11/23 07:44 Oxygen Delivery Method Room Air 10/11/23 07:44 BMI result Body Mass Index 31.0 Const General: cooperative, healthy appearing, comfortable, no acute distress and well developed Nutritional Appearance: overweight Orientation/consciousness: patient oriented x3 Limitations: no limitations HEENT Head: Yes normocephalic and Yes atraumatic Mouth: moist mucous membranes Resp Effort & Inspection: normal respiratory effort and able to speak in complete sentences GI Inspection: No distended Palpation (GI): Soft to palpation and nontender Skin Other: small round scabbed rashes measuring about 1 mm in diameter on left arm & 2 on her upper back Neuro General: patient oriented x3 Extrem Other: No synovitis Normal nailfold capillaroscopy Assessment & Plan Assessment & Plan (1) Lupus (systemic lupus erythematosus): Comment: vs UCTD (+ SHARA, painless oral ulcers, multiple sclerosis, fatigue, generalized pain) dx 2006 was on HCQ for a few years with improvement Hydroxychloroquine restarted on11/26 with significant improvement Code(s): M32.9 - Systemic lupus erythematosus, unspecified Qualifiers: Systemic lupus erythematosus type: unspecified Systemic lupus erythematosus organ involvement: other Qualified Code(s): M32.19 - Other organ or system involvement in systemic lupus erythematosus Plan: This is a 53-year-old female with mild lupus/UCTD (+ SHARA, multiple sclerosis, painless oral ulcers, nasal ulcers, fatigue, generalized pain)?presents for follow-up.? Doing well overall. Labs are stable. Continue with hydroxychloroquine 400 mg for 5 days a week and 200 mg 2 days a week Labs before next visit in 4 months (2) Long-term use of hydroxychloroquine: Code(s): Z79.899 - Other care home (current) drug therapy Plan: Discussed risks of retinopathy with hydroxychloroquine. Patient was evaluated by an tire repairer and cleared to continue hydroxychloroquine. Continue to follow-up with ophthalmology. Will request records from tire repairer (3) Fatigue: Code(s): R53.83 - Other fatigue Qualifiers: Fatigue type: chronic, unspecified Qualified Code(s): R53.82 - Chronic fatigue, unspecified Plan: Likely multifactorial, I suggested discussing with PCP Plan I spent 25 minutes reviewing patient's chart, evaluating patient, ordering diagnostic workup, counseling patient and documenting in the chart Orders: Orders Complement C3 4 Months . - Systemic lupus erythematosus, unspecified Protein Creatinine Ratio, Ur 4 Months M3. - Systemic lupus erythematosus, unspecified Comprehensive Met. Panel 4 Months 2. - Systemic lupus erythematosus, unspecified Anti DNA DS Antibody 4 Months M32.9 - Systemic lupus erythematosus, unspecified Complement C4 4 Months M32.9 - Systemic lupus erythematosus, unspecified UA w Microscopic 4 Months M32.9 - Systemic lupus erythematosus, unspecified Erythrocyte Sedimentation Rate 4 Months M32.9 - Systemic lupus erythematosus, unspecified Complete Blood Count Auto Diff 4 Months M32.9 - Systemic lupus erythematosus, unspecified Medications: New hydroxychloroquine 1 tab twice daily 5 days a week & 1 tab daily Saturday & saturday 144 tabs 1RF Coding Level of Care Code Est Pt Level 4 (87877) Diagnoses Systemic lupus erythematosus with other organ involvement, unspecified SLE type M32.19 Systemic lupus erythematosus type: unspecified Systemic lupus erythematosus organ involvement: other Long-term use of hydroxychloroquine Z79.899 Chronic fatigue R53.82 Fatigue type: chronic, unspecified
[2023-10-11 07:44] VITALS: BP 122/60; PULSE 88; TEMP 36.1; O2SAT 98; BMI 31.0
== END 2023-10-11 08:11 | disposition home or self-care (01) ==
PROVIDERS: PCP Hospitalist; Visit Provider Student in an Organized Health Care Education/Training Program
DX: M32.19 Other organ or system involvement in systemic lupus erythematosus (principal); Z79.899 Other long term (current) drug therapy; R53.82 Chronic fatigue, unspecified
CPT/HCPCS: 99214

== ENCOUNTER → 2023-10-11 07:39 | Outpatient (BNVA) | payer OTHER, SELFPAY | PROVIDERS: PCP Hospitalist; Visit Provider Student in an Organized Health Care Education/Training Program ==

== ENCOUNTER 2023-11-20 14:12 | Outpatient (AMB) | payer OTHER, SELFPAY ==
[2023-11-20 14:17] VITALS: BP 114/82; BMI 30.3
--- NOTE | 2023-11-20 14:17 | A.OFFVIS_ITS ---
Intake Vital Signs 11/20/23 14:17 Height 5 ft 3 in Weight 171 lb BMI 30.3 BP 114/82 Blood Pressure Location Rt brachial Position Sitting Intake Visit Reasons: 5 month f/u for MS/Snoring-LVM Intake Note: Patient presents for 5 month follow up snoring. merissa been good Allergies Penicillins [PENICILLINS] Allergy (Intermediate, Verified 11/20/23 14:22) RASH HPI HPI Comments History of Present Illness Details 53-yr-old female presents for f/u visit. Pt denies any significant interval medical changes. Pt reports her neck is feeling much better since doing PT. Initially had to focus on stretching and massage. She is still using Ibuprofen, which does help. She feels her MS is stable. She finds that whenever she wakes up, both of her fists are clenched tight and can be sore. She mentioned this to the PT- who suggested it may be d/t stress. Since, she has stopped her 2nd job, and trying to work on her stress. She notes that she has always worked 2 jobs, he had to keep her mind occupied. She is prone to constantly thinking, procrastination, misplacing things. Her mother and sister have similar tendencies, however patient has used these tendencies for positive life choices such as education and work. She has a history of anxiety, overall well managed, however anxiety it does prevent her from driving. Some urinary leakage. Tolerating Vumerity well. May have an occasional flushing episodes, more annoying than anything Restless leg symptoms are managed okay on gabapentin, she does not tolerate taking a higher dose of gabapentin. 05/03/23, MR/MR head/brain wo/w con IMPRESSION: BRAIN: No evidence of disease progression. No focal parenchymal enhancement to indicate active inflammation. CERVICAL SPINE: No new cord lesions. No pathologic intramedullary enhancement. No syrinx. Stable rightward curvature of the cervical spine. Progressed jxhd-ex-gouohwyu degenerative disc disease with a retrosubluxation at the C3-C4 level resulting in severe left foraminal narrowing. Mild decrease in size of a C4-C5 disc protrusion. Stable very small C5-C6 disc protrusion. [facility] Medical History Multiple sclerosis GERD (gastroesophageal reflux disease) Chronic constipation Palpitations Surgical History History of endometrial ablation Family History Mother Uterus cancer Rheumatoid arthritis Fibromyalgia CAD (coronary artery disease) Angina pectoris, unspecified Father Lupus Brain aneurysm Sister Cervical cancer Maternal Aunt Breast cancer, Onset Age: 35 Other Mental health disorder Substance use disorder Social History Household Members: Spouse Housing: House Alcohol intake: never Patient Tobacco Use Status: Never used Tobacco service: No Current occupational status: employed Current occupation: [employer] [place] Current occupational exposures/hazards: No Sexual orientation: Straight/Heterosexual Gender identity: Female Review of Systems Const All systems reviewed & are unremarkable except as noted in HPI and below Physical Exam Vital Signs: Last Vital Signs BP 114/82 11/20/23 14:17 BMI result Body Mass Index 30.3 Const General: cooperative and no acute distress Orientation/consciousness: patient oriented x3 HEENT Head: Yes normocephalic Resp Effort & Inspection: normal respiratory effort and able to speak in complete sentences Neuro Other: Posterior cervical tightness more so on right General: patient oriented x3, gait normal and CN's II-XI intact bilaterally Cognition (Neuro): normal cognition Motor exam (neuro): 5/5 motor strength present throughout Deep tendon reflexes (DTR's): Right triceps reflex intensity grade: 2+, Left triceps reflex intensity grade: 2+, Rt Biceps (C5, C6): 2+, Left biceps reflex intensity grade: 2+, Right brachioradialis reflex intensity grade: 2+, Left brachioradialis reflex intensity grade: 2+, Right patellar reflex intensity grade: 2+ and Left patellar reflex intensity grade: 2+ Psych Appearance: grossly normal Mental Status: mental status grossly normal Speech and movement: Normal speech and movement present Affect: normal affect Attitude: cooperative Thought process: Normal thought process present Thought content: Normal thought content present Insight: Good insight present (Psych) Judgement: Good judgement present (Psych) Assessment & Plan Assessment & Plan (1) Multiple sclerosis: Code(s): G35 - Multiple sclerosis (2) Cervicalgia: Code(s): M54.2 - Cervicalgia (3) Restless leg syndrome: Comment: Failed ropinirole: Caused compulsive behaviors. Code(s): G25.81 - Restless legs syndrome Plan Continue Vumerity. Continue Gabapentin 200mg qhs. Last CBC/CMP in October 2023- WBC 3.7 low: Stable, absolute neutrophils 2.5 normal, BUN 17 high, creatinine 0.8 P normal. CMP otherwise normal. Reviewed brain and c-spine MRI w/wo- stable Patient will be due for follow-up brain and cervical spine MRI in May 2024 Try starting yoga Future considerations: Urology consult. ? For cervicalgia: Continue PT stretches Again consider starting over Magnesium 400mg qhs. Future consideration- Baclofen, Flexeril- low dose as pt is sensitive to sedatin g medications. For restless leg syndrome: Continue gabapentin 200 mg q.h.s. Previous trials: Ropinirole caused compulsive behaviors. Follow-up in 5-6 months or sooner p.r.n. This note is constructed using voice recognition software. While every effort has been made to ensure accuracy, radio producer errors may have been included. Coding Level of Care Code Est Pt Level 4 (28096) Diagnoses Multiple sclerosis G35 Cervicalgia M54.2 Restless leg syndrome G25.81
== END 2023-11-20 15:11 | disposition home or self-care (01) ==
PROVIDERS: Visit Provider Nurse Practitioner Family
DX: G35 Multiple sclerosis (principal); M54.2 Cervicalgia; G25.81 Restless legs syndrome
CPT/HCPCS: 99214

== ENCOUNTER → 2023-11-20 14:12 | Outpatient (BNVA) | payer OTHER, SELFPAY | PROVIDERS: Visit Provider Nurse Practitioner Family ==

== ENCOUNTER 2024-02-15 07:43 | Outpatient (REF) | payer OTHER, SELFPAY ==
[2024-02-15 07:59] LABS: MANUAL DIFF FLAG NO
[2024-02-15 08:05] LABS: Basophils Percent Auto 1.1 % (0-2); Eosinophils Absolute Auto 0.1 X10*3/uL (0.0-0.4); Eosinophils Percent Auto 1.9 % (0-4); Hematocrit 39.5 % (37.0-47.0); Hemoglobin 13.5 g/dl (12.0-16.0); Imm Gran Abs Auto 0.01 X10*3/uL (0.00-0.03); Imm Gran Pct Auto 0.3 % (0.0-0.4); Lymphocytes Absolute Auto 0.8 X10*3/uL (1.2-4.9); Lymphocytes Percent Auto 21.8 % (20-40); Mean Corpuscular HGB Conc 34.2 g/dl (31.0-35.0); Mean Corpuscular Hemoglobin 30.5 pg (27.0-33.0); Mean Corpuscular Volume 89.2 fL (80.0-98.0); Mean Platelet Volume 10.4 fL (9.4-12.3); Monocytes Absolute Auto 0.4 X10*3/uL (0.1-1.2); Monocytes Percent Auto 9.8 % (2-11); Neutrophils Absolute Auto 2.4 x10*3/uL (2.0-8.3); Neutrophils Percent Auto 65.1 % (45-73); Platelet Count 217 X10*3/uL (160-400); Red Blood Count 4.43 X10*6/uL (4.20-5.50); Red Cell Distribution Width 13.7 % (11.0-16.0); White Blood Count 3.7 X10*3/uL (4.8-10.8)
[2024-02-15 08:46] LABS: Alanine Aminotransferase 11 U/L (0-31); Albumin Level 4.2 g/dL (3.5-5.0); Alkaline Phosphatase 55 U/L (39-117); Anion Gap 13 (12-20); Aspartate Amino Transferase 12 U/L (5-31); Bilirubin Total 0.6 mg/dL (0.0-1.0); Blood Urea Nitrogen 19 mg/dL (9-16); Calcium 9.6 mg/dL (8.4-10.2); Carbon Dioxide 24 mmol/L (22-29); Chloride 109 mmol/L (96-108); Erythrocyte Sedimentation Rate 12 MM/HR (0-20); Estimated Glomerular Filt Rate > 60; Glucose Random 100 mg/dL (60-115); Potassium 4.1 mmol/L (3.3-5.1); Sodium 142 mmol/L (135-145)
[2024-02-15 08:58] LABS: Appearance Urine Clear; Color Urine Yellow; Glucose Urine UA Negative (Negative); Leukocyte Esterase Urine Negative (Negative); Nitrite Urine Negative (Negative); PH 7.5 (5.0-9.0); Urine Blood Negative (Negative); Urine Ketones Negative (Negative); Urine Protein Trace mg/dL (Neg-Trace)
[2024-02-15 09:00] LABS: Bacteria Urine None Seen (None Seen); Hyaline Casts Urine 0-2 /LPF (0-2); RBC Urine 0-2 /HPF (0-2); Squamous Epithelial Cell Urine 0-2 /HPF (0-2); WBC Urine 0-5 /HPF (0-5)
[2024-02-15 09:35] LABS: Creatinine Urine 115.11 mg/dL; Total Protein Urine Random < 7 mg/dL (<12)
[2024-02-17 21:47] LABS: Anti DNA DS Antibody <1 IU/mL
[2024-02-18 17:23] LABS: Complement C3 144 mg/dL (83-193)
== END 2024-02-15 07:44 | disposition home or self-care (01) ==
LOC: HO.LAB 07:43
PROVIDERS: Visit Provider Student in an Organized Health Care Education/Training Program
DX: M32.9 Systemic lupus erythematosus, unspecified (principal)
CPT/HCPCS: 36415; 80053; 81001; 82570; 84156; 85025; 85652; 86160; 86225

== ENCOUNTER 2024-02-18 07:34 | Outpatient (AMB) | payer OTHER, SELFPAY ==
--- NOTE | 2024-02-18 07:39 | MHC.OFFVIS ---
Intake Vital Signs 02/18/24 07:40 Height 5 ft 3 in Weight 168 lb 10.458 oz BMI 29.9 BP 124/68 Blood Pressure Location Rt brachial Position Sitting Pulse 98 Pulse Source Pulse Oximeter Pulse Oximetry (%) 99 Oxygen Delivery Method Room Air Intake Visit Reasons: SLE Intake Note: Patient last seen 10/11/23 presents today for follow up and test results. Pt mentions new pcp Dr Malhotra; saw medical front desk specialist Dr Starkey was concerned with plaquenil use. Pt states she does feel much better on the plaquenil, takes 2 tabs Saturday-Saturday Newspaper Or Periodical Editor Required: No Accompanied by: Self / Same As Patient Allergies Penicillins [PENICILLINS] Allergy (Intermediate, Verified 02/18/24 07:49) RASH Medication List - Last Reconciled 02/18/24 by Robert Campbell MD clindamycin phosphate 1% topical BID PRN diroximel fumarate (Vumerity) 462 mg (2 x 231 mg) PO BID 30 days fluticasone propionate 50 mcg/actuation (Flonase Allergy Relief) 1 spray intranasal Q12H 30 days gabapentin 200 mg (2 x 100 mg) PO BEDTIME 90 days hydroxychloroquine 2 tab daily Saturday-Saturday ibuprofen 400 mg PO BID magnesium oxide 400 mg PO BEDTIME 30 days omeprazole 20 mg PO BID HPI HPI Comments History of Present Illness Details 53-year-old female with UCTD/mild SLE returns for follow-up. Remains on hydroxychloroquine. She states that she feels about the same overall. No new complaints. She was recently evaluated by Ophthalmology and cleared to continue hydroxychloroquine but she was told that she has been on it for a long period of time. She has no complaints today Initial history: This is a 52-year-old female who presents for evaluation of a positive SHARA. Patient stated that since her teens she has had intermittent pain and fatigue. 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 She was started on Plaquenil and she took it for about 6 years which significantly controlled her pain and fatigue. In 2018 she developed left footdrop and was eventually diagnosed with MS. She is following up with Neurology and her MS is currently well controlled. Currently her main complaint is generalized fatigue. She is unable to exercise. She has been taking plenty of NSAIDs. She has some pain in some areas when touched especially in her lower back as well as pain on the outside of her hips and the inside of her knees. She also has been having ringing in her left ear. She is due to see ENT soon. Her mother was diagnosed with rheumatoid arthritis and her father had lupus manifested by skin rashes. [facility] Medical History Multiple sclerosis GERD (gastroesophageal reflux disease) Chronic constipation Palpitations Surgical History History of endometrial ablation Family History Mother Uterus cancer Rheumatoid arthritis Fibromyalgia CAD (coronary artery disease) Angina pectoris, unspecified Father Lupus Brain aneurysm Sister Cervical cancer Maternal Aunt Breast cancer, Onset Age: 35 Other Mental health disorder Substance use disorder Social History Household Members: Spouse Housing: House Alcohol intake: never Patient Tobacco Use Status: Never used Tobacco service: No Current occupational status: employed Current occupation: [employer] Current occupational exposures/hazards: No Sexual orientation: Straight/Heterosexual Gender identity: Female Review of Systems Musc Reports myalgias Physical Exam Vital Signs: Last Vital Signs Pulse 98 02/18/24 07:40 BP 124/68 02/18/24 07:40 Pulse Ox 99 02/18/24 07:40 Oxygen Delivery Method Room Air 02/18/24 07:40 BMI result Body Mass Index 29.9 Const General: cooperative, healthy appearing, comfortable, no acute distress and well developed Nutritional Appearance: overweight Orientation/consciousness: patient oriented x3 Limitations: no limitations HEENT Head: Yes normocephalic and Yes atraumatic Mouth: moist mucous membranes Resp Effort & Inspection: normal respiratory effort and able to speak in complete sentences GI Inspection: No distended Palpation (GI): Soft to palpation and nontender Skin Other: small round scabbed rashes measuring about 1 mm in diameter on upper arms and upper back Neuro General: patient oriented x3 Extrem Other: No synovitis Normal nailfold capillaroscopy Assessment & Plan Assessment & Plan (1) Lupus (systemic lupus erythematosus): Comment: vs UCTD (+ SHARA, painless oral ulcers, multiple sclerosis, fatigue, generalized pain) dx 2006 was on HCQ for about 9 years with improvement Hydroxychloroquine restarted on11/26 with significant improvement Code(s): M32.9 - Systemic lupus erythematosus, unspecified Qualifiers: Systemic lupus erythematosus type: unspecified Systemic lupus erythematosus organ involvement: other Qualified Code(s): M32.19 - Other organ or system involvement in systemic lupus erythematosus Plan: This is a 53-year-old female with mild lupus/UCTD (+ SHARA, multiple sclerosis, painless oral ulcers, nasal ulcers, fatigue, generalized pain)?presents for follow-up.? Doing well overall. Labs are stable. Patient has been on hydroxychloroquine for a total of 10 years. Most recent VF and OCT exam or unremarkable. However I would like to lower the dose keep monitoring her. Lower hydroxychloroquine to 400 mg x 4 days a week and 200 mg x 3 days a week Labs before next visit 4 months (2) Long-term use of hydroxychloroquine: Comment: Eye exam OK 02/2024 Code(s): Z79.899 - Other adjunct faculty for medical terminology (current) drug therapy Plan: As above. Continue to follow-up with ophthalmology Plan I spent 25 minutes reviewing patient's chart, evaluating patient, ordering diagnostic workup, counseling patient and documenting in the chart Orders: Orders Anti DNA DS Antibody 4 Months - Other organ or system involvement in systemic lupus erythematosus Complement C3 4 Months - Other organ or system involvement in systemic lupus erythematosus Complement C4 4 Months - Other organ or system involvement in systemic lupus erythematosus C Reactive Protein 4 Months - Other organ or system involvement in systemic lupus erythematosus Protein Creatinine Ratio, Ur 4 Months - Other organ or system involvement in systemic lupus erythematosus UA w Microscopic 4 Months - Other organ or system involvement in systemic lupus erythematosus Complete Blood Count Auto Diff 4 Months - Other organ or system involvement in systemic lupus erythematosus Comprehensive Met. Panel 4 Months - Other organ or system involvement in systemic lupus erythematosus Erythrocyte Sedimentation Rate 4 Months . - Other organ or system involvement in systemic lupus erythematosus Medications: Changed From hydroxychloroquine 1 tab twice daily 5 days a week & 1 tab daily Saturday & saturday 144 tabs 1RF To hydroxychloroquine 2 tab daily Saturday-Saturday Coding Level of Care Code Est Pt Level 4 (20226) Diagnoses Systemic lupus erythematosus with other organ involvement, unspecified SLE type M32.19 Systemic lupus erythematosus type: unspecified Systemic lupus erythematosus organ involvement: other Long-term use of hydroxychloroquine Z79.899
[2024-02-18 07:40] VITALS: BP 124/68; PULSE 98; O2SAT 99; BMI 29.9
== END 2024-02-18 07:58 | disposition home or self-care (01) ==
PROVIDERS: PCP Hospitalist; Visit Provider Student in an Organized Health Care Education/Training Program
DX: M32.19 Other organ or system involvement in systemic lupus erythematosus (principal); Z79.899 Other long term (current) drug therapy
CPT/HCPCS: 99214

== ENCOUNTER → 2024-02-18 07:34 | Outpatient (BNVA) | payer OTHER, SELFPAY | PROVIDERS: PCP Hospitalist; Visit Provider Student in an Organized Health Care Education/Training Program ==

== ENCOUNTER 2024-02-18 11:52 | Outpatient (AMB) | payer OTHER, SELFPAY ==
[2024-02-18 12:04] VITALS: BP 116/77; PULSE 89; O2SAT 98
--- NOTE | 2024-02-18 12:04 | A.OFFPC_ITS ---
Vital Signs 02/18/24 12:04 Height 5 ft 3 in Weight 169 lb 8 oz BMI 30.0 BP 116/77 Blood Pressure Location Lt brachial Position Sitting Pulse 89 Pulse Source Pulse Oximeter Pulse Oximetry (%) 98 Oxygen Delivery Method Room Air Intake Visit Reasons: Annual exam Intake Note: Patient is here today for her physical, and has issues with acid reflux, medication not working well and orthostatic issue. Allergies Penicillins [PENICILLINS] Allergy (Intermediate, Verified 02/18/24 12:08) RASH Medication List - Last Reconciled 02/18/24 by Nader Malhotra MD diroximel fumarate (Vumerity) 462 mg (2 x 231 mg) PO BID 30 days fluticasone propionate 50 mcg/actuation (Flonase Allergy Relief) 1 spray intranasal Q12H 30 days gabapentin 200 mg (2 x 100 mg) PO BEDTIME 90 days hydroxychloroquine 2 tab daily Saturday-Saturday ibuprofen 400 mg PO BID magnesium oxide 400 mg PO BEDTIME 30 days omeprazole 20 mg PO BID Tobacco use date assessed: 02/18/24 Dental Screening Dental Screen Date: 02/18/24 Did you have a dental visit in the last 12 months?: Yes Did you have a dental problem in the last 6 months where you did not have access to dental care?: No Was dental information given to patient?: Patient has dentist HPI Annual exam HPI Details 53 y/o female presents for a CPE with f/ u labs and health maintenance. No recent CPE-labs to review. Pt has complaints of GERD. Pt has complaints of dizziness/pre-syncope - she reports dizzines mostly from bending down. [facility], [facility] Medical History Multiple sclerosis GERD (gastroesophageal reflux disease) Chronic constipation Palpitations Surgical History History of endometrial ablation Family History Mother Uterus cancer Rheumatoid arthritis Fibromyalgia CAD (coronary artery disease) Angina pectoris, unspecified Father Lupus Brain aneurysm Sister Cervical cancer Maternal Aunt Breast cancer, Onset Age: 35 Other Mental health disorder Substance use disorder Social History Household Members: Spouse Housing: House Alcohol intake: never Patient Tobacco Use Status: Never used Tobacco service: No Current occupational status: employed Current occupation: [employer] [place] Current occupational exposures/hazards: No Sexual orientation: Straight/Heterosexual Gender identity: Female Questionnaire PHQ-9 Over the last 2 weeks, how often have you been bothered by any of the following problems? 1. Little interest or pleasure in doing things: not at all 2. Feeling down, depressed, or hopeless: not at all 3. Trouble falling or staying asleep, or sleeping too much: not at all 4. Feeling tired or having little energy: not at all 5. Poor appetite or overeating: not at all 6. Feeling bad about yourself - or that you are a failure or have let yourself or your family down: not at all 7. Trouble concentrating on things, such as reading the newspaper or watching television: not at all 8. Moving or speaking so slowly that other people could have noticed. Or the opposite - being so fidgety or restless that you have been moving around a lot more than usual: not at all 9. Thoughts that you would be better off or of hurting yourself in some way: not at all Total score: 0 Depression Screening Interpretation: Negative Depression Screening Done: Yes 75100 - PHQ-9 Billing: Yes Source: Developed by Drs. Kee Michael, Sherry Galicia, David Simmons and colleagues, with an educational veronica from [employer]. Thrive Questionnaire Date Thrive assessed: 01/01/23 AUDIT C Alcohol Use Questionnaire (AUDIT-C) 1. How often do you have a drink containing alcohol?: Never 3. How often do you have six or more drinks on one occasion?: Never Total Score: 0 DEXTER-7 AMB Questionnaire DEXTER-7 Date DEXTER - 7 assessed: 02/18/24 Feeling nervous, anxious, or on edge: 1 = Several days Not being able to stop or control worryin = Not at all Worrying too much about different things: 0 = Not at all Trouble relaxin = Not at all Being so restless that it is hard to sit still: 0 = Not at all Becoming easily annoyed or irritable: 0 = Not at all Feeling afraid as if something awful might happen: 0 = Not at all Total DEXTER-7 score (0-4 normal; 5-9 mild; 10-14 moderate; 15-21 severe): 1 Source: Developed by Drs. Kee Michael, Sherry Galicia, David Simmons and colleagues, with an educational veronica from [employer]. DEXTER-7 Assessment Billing DEXTER-7 Assessment Tool: DEXTER-7 Assessment 65739 Review of Systems Const Denies chills, Denies fatigue, Denies fever(s), Denies headache(s) and Denies weakness Eyes Denies change in vision ENT Reports dizziness, Denies headache(s), Denies hearing loss, Denies nasal congestion, Denies sinus pain, Denies sinus pressure and Denies sore throat Card Denies chest pain, Denies lightheadedness, Denies dyspnea and Denies other (palpitations) Resp Denies cough, Denies dyspnea and Denies wheezing GI Denies abdominal pain, Denies melena, Denies hematochezia, Denies change in bowel habits, Denies dyspepsia and Denies nausea Denies hematuria and Denies dysuria Musc Denies abnormal gait, Denies myalgias, Denies arthralgias, Denies numbness and Denies tingling Skin/Breast Denies rash, Denies unusual bruising and Denies wounds Neuro Denies abnormal gait, Reports dizziness, Denies headache(s), Denies memory loss, Denies numbness, Denies Sensory deficit (Neuro), Denies tingling and Denies weakness Psych Denies anxiety, Denies depression and Denies memory loss Endo Denies cold intolerance, Denies fatigue, Denies heat intolerance, Denies polydipsia and Denies polyuria Lico/Lymph Denies easy bleeding and Denies easy bruising Aller/Immun Denies wheezing Physical exam (Primary Care) Vital Signs: Last Vital Signs Pulse 89 02/18/24 12:04 BP 116/77 02/18/24 12:04 Pulse Ox 98 02/18/24 12:04 Oxygen Delivery Method Room Air 02/18/24 12:04 BMI result Body Mass Index 30.0 Tobacco/Smoking Status: Tobacco use Status Tobacco use date assessed 02/18/24 02/18/24 12:10 Patient Tobacco Use Status Never used Tobacco 02/18/24 12:10 PHQ-9: PHQ-9 Score PHQ-9: Total score 0 02/18/24 12:26 Depression Screening Interpretation: Negative Thrive Assessment: Date of Thrive Assessment Date Thrive assessed 01/01/23 02/18/24 12:10 Const General: no acute distress, well developed, alert and awake Nutritional Appearance: well nourished Orientation/consciousness: patient oriented x3 HENMT Head: Yes normocephalic and Yes atraumatic Ears: hearing grossly normal bilaterally and TM's normal bilaterally General nose exam: Normal external nose present and Normal nares present Mouth: Normal oral and palatal mucosa present and moist mucous membranes Teeth and gingiva: dentition normal Throat: Yes posterior oropharynx normal Eyes General: appearance normal, both eyes and all related structures Pupils: Equal, round and reactive pupils present and Pupil accommodation reflex normal EOM: EOMs intact bilaterally Neck Neck: Yes normal visual inspection, Yes no lymphadenopathy and Yes trachea mid line Thyroid: Thyroid normal Carotids: no bruits Lymphatic: no lymphadenopathy noted Chest Chest palpation & inspection: normal inspection of the chest Resp Effort & Inspection: normal respiratory effort Auscultation: clear to auscultation bilaterally Cardio Rate: regular rate Rhythm: regular rhythm Heart sounds: S1 normal heart sound present, S2 normal heart sound present, no gallops, no murmurs and no rubs Bruits: no abdominal aortic bruits and no carotid bruits GI Palpation (GI): No Abdominal aortic bruit present, Soft to palpation, nontender, No hepatosplenomegaly present and No Rebound tenderness present Auscultation: normal bowel sounds General: Yes no CVA tenderness Back/Spine/Pelvis Back: no CVA tenderness Cervical Spine: cervical ROM normal and No Cervical spine tenderness Thoracic/Lumbar Spine: thoraco-lumbar ROM normal, No pain with thoraco-lumbar ROM, No thoracic spinal tenderness and No lumbar spinal tenderness Skin Lesions: no lesions Rashes: no rashes Trauma: no lacerations or abrasions Wounds: no wounds Nails: normal Neuro General: patient oriented x3 Cranial nerves: Yes Equal, round and reactive pupils present Cognition (Neuro): normal cognition Gait exam (Neuro): Normal gait present Motor exam (neuro): 5/5 motor strength present throughout Sensory Exam: No Sensory deficit (Neuro) Deep tendon reflexes (DTR's): Right patellar reflex intensity grade: 2+ and Left patellar reflex intensity grade: 2+ Extrem General: Yes normal to inspection and No edema Psych Appearance: grossly normal Affect: normal affect Attitude: cooperative Thought process: Normal thought process present Assessment and Plan Assessment & Plan (1) Adult general medical exam: Code(s): Z00.00 - Encounter for general adult medical examination without abnormal findings Plan: 53-year-old?female?with ?history?of?MS?and?lupus?presents?for?complete?physical?exam Stable (2) GERD (gastroesophageal reflux disease): Code(s): K21.9 - Gastro-esophageal reflux disease without esophagitis Plan: Significant?GERD?despite?using?omeprazole?b.i.d. Referred?back?to?gastroenterology (3) Pre-syncope: Code(s): R55 - Syncope and collapse Plan: Lightheadedness/presyncope?when?bending?over. No? symptoms?with?head?movements?alone.??Does?not?think?she?gets?symptoms?with?squat ting?down?though?she?is?uncertain.??Orthostatic?blood?pressures?today?were?negat merissa. Likely?vasovagal?response?and?possible?contribution?from?her?MS. Hydrate?well?to?avoid?exacerbating?symptoms. Avoid?bending?at?the?waist/Valsalva Check?echocardiogram Will?follow-up?in?2?weeks?by?telemedicine (4) Screening for colon cancer: Code(s): Z12.11 - Encounter for screening for malignant neoplasm of colon Plan: Last?colonoscopy?about?2?years?ago?with?[facility] [place]GI Up-to-date (5) Screening for cervical cancer: Code(s): Z12.4 - Encounter for screening for malignant neoplasm of cervix Plan: Patient?says?she?is?due?for Pap?smear?this?year?at?[facility] [place]OBGYN (6) Breast cancer screening by mammogram: Code(s): Z12.31 - Encounter for screening mammogram for malignant neoplasm of breast Plan: Mammogram?each?May. She?is?scheduled?for?her?next?mammogram?this?summer Orders: Orders UA and rflx microscopic Today Z00.00 - Encounter for general adult medical examination without abnormal findings Comprehensive Met. Panel Today Z00.00 - Encounter for general adult medical exa mination without abnormal findings Lipid Panel Today Z00.00 - Encounter for general adult medical examination without abnormal findings LDL Cholesterol Direct Today Z00.00 - Encounter for general adult medical examination without abnormal findings CA echo transthoracic complete Today R55 - Syncope and collapse TSH reflex Free T4 Today Z00.00 - Encounter for general adult medical examination without abnormal findings Referrals Gastroenterology Referral K21.9 - Gastro-esophageal reflux disease without esophagitis Coding Level of Care Code Est Pt Level 3 (76812) Est Pt Prev Care 40-64y(31850) Diagnoses Adult general medical exam Z00.00 GERD (gastroesophageal reflux disease) K21.9 Pre-syncope R55 Screening for colon cancer Z12.11 Screening for cervical cancer Z12.4 Breast cancer screening by mammogram Z12.31 Additional Codes DEXTER-7 Assessment Billing - DEXTER-7 Assessment Tool: DEXTER-7 Assessment 84658 ([id number])
== END 2024-02-18 13:14 | disposition home or self-care (01) ==
PROVIDERS: Visit Provider Family Medicine
DX: Z00.00 Encounter for general adult medical examination without abnormal findings (principal); K21.9 Gastro-esophageal reflux disease without esophagitis; R55 Syncope and collapse; Z12.11 Encounter for screening for malignant neoplasm of colon; Z12.4 Encounter for screening for malignant neoplasm of cervix; Z12.31 Encounter for screening mammogram for malignant neoplasm of breast
CPT/HCPCS: 99213; 99396

== ENCOUNTER 2024-02-18 12:43 | Outpatient (REF) | payer OTHER, SELFPAY ==
[2024-02-18 14:28] LABS: Appearance Urine Clear; Color Urine Yellow; Glucose Urine UA Negative (Negative); Leukocyte Esterase Urine Negative (Negative); Nitrite Urine Negative (Negative); PH 5.5 (5.0-9.0); Specific Gravity - Urine 1.025 (1.005-1.025); Urine Blood Negative (Negative); Urine Ketones Trace mg/dL (Negative); Urine Protein Negative (Neg-Trace)
[2024-02-18 17:28] LABS: Alanine Aminotransferase 16 U/L (0-31); Albumin Level 4.2 g/dL (3.5-5.0); Alkaline Phosphatase 56 U/L (39-117); Anion Gap 12 (12-20); Aspartate Amino Transferase 13 U/L (5-31); Bilirubin Total 0.5 mg/dL (0.0-1.0); Blood Urea Nitrogen 20 mg/dL (9-16); Calcium 9.8 mg/dL (8.4-10.2); Carbon Dioxide 27 mmol/L (22-29); Chloride 108 mmol/L (96-108); Cholesterol 185 mg/dL (<200); Estimated Glomerular Filt Rate > 60; Glucose Random 99 mg/dL (60-115); HDL Cholesterol 46 mg/dL (>40); LDL Cholesterol Calculated 114 mg/dL (<100); Potassium 3.7 mmol/L (3.3-5.1); Sodium 143 mmol/L (135-145); TSH reflex Free T4 1.37 uIU/mL (0.32-4.0); Total Protein 7.1 g/dL (6.5-8.0); Triglycerides 126 mg/dL (<150)
[2024-02-20 01:38] LABS: LDL Cholesterol Direct 129 mg/dL (<100)
== END 2024-02-18 12:44 | disposition home or self-care (01) ==
LOC: HO.WFDLDS 12:43
PROVIDERS: Visit Provider Family Medicine
DX: Z00.00 Encounter for general adult medical examination without abnormal findings (principal); Z13.6 Encounter for screening for cardiovascular disorders
CPT/HCPCS: 36415; 80053; 80061; 81003; 83721; 84443

== ENCOUNTER 2024-03-17 15:37 | Outpatient (AMB) | payer OTHER, SELFPAY ==
--- NOTE | 2024-03-17 15:47 | MHC.OFFVIS ---
Vital Signs 03/17/24 15:49 Height 5 ft 3 in Weight 165 lb 5.547 oz BMI 29.3 BP 138/82 Blood Pressure Location Lt brachial Position Sitting Pulse 93 Intake Visit Reasons: Gastroesophageal reflux disease (GERD) Intake Note: Tresa presents in the office as a new patient for GERD and constipation issues. 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 She states that it is smooth when it finally passes. Her reflux is no longer controlled with omeprazole so she may need to explore new options. Allergies Penicillins [PENICILLINS] Allergy (Intermediate, Verified 03/17/24 15:49) RASH HPI HPI Gastroesophageal reflux disease (GERD): Details: 53-year-old female with past medical history of GERD, lupus, MS, fatigue, CIC is here today for initial consultation. Patient was sent to us by her PCP. Patient was diagnosed with MS just before COVID. Patient currently is taking Vumerity twice a day and no longer is experiencing a foot drop. Patient reports that this was her symptoms before she was diagnosed with MS. Patient reports that for as long as she remembers she has been dealing with constipation. Was diagnosed with CIC as a child. Patient reports that usually she was able to go to the bathroom once a week and her bowels were soft, however now she still goes once a week, however the stool consistent sleep changed. Patient reports that she has to strain in order for her to have a bowel movement. Patient in addition is taking gabapentin. Patient is taking magnesium oxide daily, however does not feel like it is helping her to go to the bathroom. Patient also reports severe epigastric discomfort and acid reflux despite taking omeprazole. Patient reports that sometimes the pain radiates to her back. Patient reports dizziness when bending over. Patient denies any melena, hematochezia, unintentional weight loss or ribbon like stools. Patient reports dyspepsia without dysphagia or odynophagia. Patient had colonoscopy 03/19/2022 that showed couple sessile serrated polyps. Tubular adenoma found and recommendation was made for patient to return in 5 years. Patient never had upper endoscopy done. [facility] Medical History Multiple sclerosis GERD (gastroesophageal reflux disease) Chronic constipation Palpitations Surgical History Hx of colonoscopy History of endometrial ablation Family History Mother Uterus cancer Rheumatoid arthritis Fibromyalgia CAD (coronary artery disease) Angina pectoris, unspecified Father Lupus Brain aneurysm Sister Cervical cancer Maternal Aunt Breast cancer, Onset Age: 35 Other Mental health disorder Substance use disorder Social History Household Members: Spouse Housing: House Alcohol intake: never Patient Tobacco Use Status: Never used Tobacco service: No Current occupational status: employed Current [place]: [employer] [place] Current occupational exposures/hazards: No Sexual orientation: Straight/Heterosexual Gender identity: Female Review of Systems Const Denies weight gain and Denies weight loss ENT Reports no additional complaints, Denies dysphagia and Denies odynophagia Card Reports no additional complaints Resp Reports no additional complaints GI Reports abdominal pain (Epigastric), Denies belching, Denies melena, Reports bloating, Reports constipation, Denies dysphagia, Denies excessive flatus, Reports early satiety (At times), Reports dyspepsia, Reports heartburn, Denies diarrhea, Denies loose stools, Denies nausea, Denies odynophagia and Denies vomiting Reports no additional complaints Musc Reports no additional complaints Neuro Reports no additional complaints Psych Reports no additional complaints Endo Reports no additional complaints Physical Exam Vital Signs: Last Vital Signs Pulse 93 03/17/24 15:49 BP 138/82 03/17/24 15:49 BMI result Body Mass Index 29.3 Const General: healthy appearing, no acute distress and well developed Nutritional Appearance: well nourished Orientation/consciousness: patient oriented x3 Resp Effort & Inspection: normal respiratory effort, able to speak in complete sentences, no tracheal deviation and symmetric chest movement Auscultation: clear to auscultation bilaterally Cardio Rate: regular rate GI Inspection: Yes normal to inspection and No distended Palpation (GI): Soft to palpation, not firm, nontender and No hepatosplenomegaly present Auscultation: normal bowel sounds General: Yes no CVA tenderness Back/Spine/Pelvis Back: no CVA tenderness Skin General skin exam: elasticity normal, turgor normal and dry skin Neuro General: patient oriented x3 Psych Appearance: grossly normal Mental Status: mental status grossly normal Assessment & Plan Assessment & Plan (1) GERD (gastroesophageal reflux disease): Code(s): K21.9 - Gastro-esophageal reflux disease without esophagitis Category: Medical Qualifiers: Esophagitis presence: esophagitis presence not specified Qualified Code(s): K21.9 - Gastro-esophageal reflux disease without esophagitis (2) Postprandial epigastric pain: Code(s): R10.13 - Epigastric pain (3) Chronic idiopathic constipation: Code(s): K59.04 - Chronic idiopathic constipation (4) Abdominal bloating: Code(s): R14.0 - Abdominal distension (gaseous) Plan Patient can stop taking omeprazole and we will start her on pantoprazole daily. Will check lipase, H pylori. Patient will need to start taking Dulcolax tablets in the evening, however patient will also start taking Colace in the morning 1-2 capsules. Patient will be sent for upper endoscopy to rule out gastritis, duodenitis, gastric or peptic ulcer, Mazariegos's, esophagitis, H pylori. Will check vitamin-D level, B12 and folate. Patient denies any issues with anesthesia in the past. No history of sleep apnea. Not on any anticoagulation medication. Patient will be seen after the procedure, sooner on as needed basis. She is agreeable to this plan and verbalizes understanding of instructions. She was given the opportunity to ask questions and all questions answered. Thank you for allowing me to participate in her care Orders: Orders H pylori Ag Stool Today K21.9 - Gastro-esophageal reflux disease without esophagitis Vitamin D 25-OH (D2 and D3) Today E55.9 - Vitamin D deficiency, unspecified Lipase Today R10.9 - Unspecified abdominal pain Vitamin B12 and Folate Today R19.7 - Diarrhea, unspecified Medications: New bisacodyl (Dulcolax (bisacodyl)) 10 mg (2 x 5 mg) PO BEDTIME 180 tabs 4RF docusate sodium 100 mg PO BEDTIME 90 caps 3RF K59.00 - Constipation, unspecified pantoprazole take one tablet half an hour before breakfast 40 mg PO DAILY 30 tabs 2RF K21.9 - Gastro-esophageal reflux disease without esophagitis Discontinued omeprazole Discontinued Reason: Doctor's Order 20 mg PO BID 180 caps 3RF Coding Level of Care Code New Pt Level 4 (58094) Diagnoses Gastroesophageal reflux disease, unspecified whether esophagitis present K21.9 Esophagitis presence: esophagitis presence not specified Postprandial epigastric pain R10.13 Chronic idiopathic constipation K59.04 Abdominal bloating R14.0 Time Spent (min) 45 Comment 30 minutes spent with patient and additional 15 minutes spent reviewing her records
[2024-03-17 15:49] VITALS: BP 138/82; PULSE 93; BMI 29.3
== END 2024-03-17 16:40 | disposition home or self-care (01) ==
PROVIDERS: PCP Hospitalist; Visit Provider Nurse Practitioner Family
DX: K21.9 Gastro-esophageal reflux disease without esophagitis (principal); R10.13 Epigastric pain; K59.04 Chronic idiopathic constipation; R14.0 Abdominal distension (gaseous)
CPT/HCPCS: 99204

== ENCOUNTER → 2024-03-17 15:37 | Outpatient (BNVA) | payer OTHER, SELFPAY | PROVIDERS: PCP Hospitalist; Visit Provider Nurse Practitioner Family ==

== ENCOUNTER → 2024-04-02 11:33 | Outpatient (REF) | payer OTHER, SELFPAY ==
[2024-04-02 12:40] LABS: Lipase 55 U/L (8-78)
[2024-04-02 13:11] LABS: Folate 6.2 ng/mL (> or = 4.0); Vitamin B12 304 pg/mL (200-900)
--- NOTE | 2024-04-02 13:33 | CA_ITS ---
Transthoracic Echocardiogram Patient (Last, First, Middle): Tresa Mazariegos E Gender: Female Date of : 1970 Age: 53 Procedure Date: 04/02/2024 Procedure Type: Transthoracic Echocardiogram Location: OP Height: 160.02 cm Weight: 74.39 kg BSA: 1.78 m2 Heart Rate: bpm BP: 138 / 90 mmHg Spreader Box Operator: TO Referring MD: Nader Malhotra MD Symptoms: R55 - Syncope and collapse Study Quality: Fair ECG Rhythm: Sinus Conclusions: - The left ventricular systolic function is mildly decreased. The calculated ejection fraction is 48% by biplane method. - No obvious valvular pathology seen on this study. Findings Left Ventricle Normal left ventricular cavity size. The left ventricular systolic function is mildly decreased. The calculated ejection fraction is 48% by biplane method. There is mild global hypokinesis. Evidence suggests grade I (mild) diastolic dysfunction. There is mild septal asymmetric hypertrophy. LV peak GLS -17.9%, possibly slight overestimate. Right Ventricle Normal right ventricular cavity size and systolic function. Atria Both atria are normal in size. Aortic Valve There is a normal trileaflet aortic valve. There is no aortic valve stenosis. There is no aortic valve regurgitation. Mitral Valve There is mild anterior and posterior mitral leaflet thickening. There is mild mitral annular calcification. There is mild mitral valve regurgitation. There is no mitral valve stenosis. Pulmonic Valve The pulmonic valve is likely normal. Tricuspid Valve There is trace tricuspid valve regurgitation. There is no evidence of pulmonary hypertension. Great Vessels The asc aorta is normal in size. Venous The inferior vena cava is normal in size and collapses greater than 50% with inspiration. Pericardium/Pleural There is no evidence of pericardial effusion. Prior Study Comparison No prior study available for comparison. Recommendations, Care & Conclusions No obvious valvular pathology seen on this study. Measurements 2D Linear Measurements IVSd: 1.14 0.6-0.9/0.6-1.0 cm LVIDd: 4.56 3.9-5.3/4.2-5.9 cm LVIDd Index: 2.56 2.4-3.2/2.2-3.1 cm/m2 LVIDs: 3.37 2.0-3.6 cm LVPWd: 0.85 0.7-1.1 cm LA Diam: 3.70 2.7-3.8/3.0-4.0 cm LAIDs Index: 2.08 1.5-2.3 cm/m2 LV Mass: 194.18 67-162/88-224 g LV Mass Index: 109.09 43-95/49-115 g/m2 LVOT Diam: 2.40 3.0+(-)1.3 cm 2D Systolic Function EF 4C: 48.00 >55% EF 2C: 52.80 >55% EF BiP: 48.40 >55% Mitral Valve MV VTI: 0.26 MV Pk Abdon: 1.05 MV Mn Abdon: 0.62 MV Pk Grad: 4.00 MV Mn Grad: 2.00 MV Pk E: 0.57 MV PK A: 0.92 MV Decel Time: 222.00 E/A: 0.60 E'Lateral: 5.55 E'Medial: 7.07 E/E' Med: 8.10 E/E' Lat: 10.30 PHT: 65.00 MVA PHT: 3.38 MVA Continuity: 2.52 Decel Valencia: 2.57 Aortic Valve AoV Pk Abdon: 0.96 AoV Mn Abdon: 0.70 AoV VTI: 0.21 AoV Pk Grad: 4.00 Aov Mn Grad: 2.00 JOE Cont.VTI: 3.15 LVOT LVOT Pk Abdon: 0.71 LVOT Mn Abdon: 0.49 LVOT VTI: 0.14 LVOT Pk Grad: 2.00 LVOT Mn Grad: 1.00 LVOT Diam: 2.40 LVOT Area: 4.52 Diastolic Function MV Pk E: 0.57 MV Pk A: 0.92 E/A: 0.60 E'Medial: 7.07 E/E' Med: 8.10 E' Laterial: 5.55 E/E' Lat: 10.30 Right Ventricle TAPSE (mm): 18.80 TVS' Abdon: 14.00 Tricuspid Valve TR Pk Abdon: 1.81 TR Pk Grad: 13.00 RA Press: 3.00 RVSP: 16.00 Great Vessels Aorta Sinus of Valsalva: 3.50 2.0-3.[address] [place]: 2.93 1.7-3.4 cm Ao Asc: 3.40 2.1-3.4 cm Updated in Other Vendor System with Status of Final Carlos Silverman MD electronically signed on 04/03/2024 2:55:16 PM with status of Final
[2024-04-06 15:52] LABS: Vitamin D 25-OH, D2 <4 ng/mL; Vitamin D 25-OH, D3 25 ng/mL; Vitamin D 25-OH, Total 25 ng/mL (30-100)
== END ==
LOC: HO.CARD 11:33
PROVIDERS: Absent Provider Nurse Practitioner Family; PCP Hospitalist; Visit Provider Family Medicine
DX: R10.9 Unspecified abdominal pain (principal); E55.9 Vitamin D deficiency, unspecified; R19.7 Diarrhea, unspecified; R55 Syncope and collapse
CPT/HCPCS: 36415; 82306; 82607; 82746; 83690; 93306; 93356

== ENCOUNTER → 2024-04-02 13:33 | Outpatient (BNV) | payer OTHER, SELFPAY | PROVIDERS: Absent Provider Nurse Practitioner Family; PCP Hospitalist; Visit Provider Internal Medicine | DX: I34.0 Nonrheumatic mitral (valve) insufficiency (principal); I34.81 Nonrheumatic mitral (valve) annulus calcification; I42.2 Other hypertrophic cardiomyopathy | CPT/HCPCS: 93306; 93356 ==

== ENCOUNTER 2024-04-02 13:35 | Outpatient (REF) | payer OTHER, SELFPAY | END 2024-04-02 13:36 | disposition home or self-care (01) | LOC: HO.MAMMO 13:35 | PROVIDERS: Visit Provider Hospitalist | DX: Z13.89 Encounter for screening for other disorder (principal) ==

== ENCOUNTER 2024-04-03 16:22 | Outpatient (REF) | payer OTHER, SELFPAY | END 2024-04-03 16:23 | disposition home or self-care (01) | LOC: HO.LNP 16:22 | PROVIDERS: Visit Provider Nurse Practitioner Family | DX: K21.9 Gastro-esophageal reflux disease without esophagitis (principal) | CPT/HCPCS: 87338 ==

== ENCOUNTER 2024-04-06 12:02 | Outpatient (AMB) | payer OTHER, SELFPAY ==
--- NOTE | 2024-04-06 12:03 | MHC.OFFVIS ---
Intake Visit Reasons: 5 mo f/u-CONF Intake Note: Patient following up Allergies Penicillins [PENICILLINS] Allergy (Intermediate, Verified 04/06/24 12:03) [facility] Medication List - Last Reconciled 04/06/24 by BEBETO Howard bisacodyl (Dulcolax (bisacodyl)) 10 mg (2 x 5 mg) PO BEDTIME diroximel fumarate (Vumerity) 462 mg (2 x 231 mg) PO BID 30 days docusate sodium 100 mg PO BEDTIME fluticasone propionate 50 mcg/actuation (Flonase Allergy Relief) 1 spray intranasal Q12H 30 days gabapentin 200 mg (2 x 100 mg) PO BEDTIME 90 days hydroxychloroquine Take 1 tab Twice daily x4 days a week and 1 tab daily x3 days a week ibuprofen 400 mg PO BID magnesium oxide 400 mg PO BEDTIME 30 days pantoprazole 40 mg PO DAILY HPI Comments Details: 53-yr-old female presents for f/u televideo visit. Pt had recent echocardiogram as she was having lightheadedness upon bending over. Denies lightheadedness upon standing, chest pain, SOB. States takes fluids well. Echocardiogram showed EF 49%, mildly dcreased. Has been referred to cardiology. Notes h/o CV dz. Pt denies any interval signs of MS relapse- no new numbness, tingling, weakness. Tolerating Vumerity well. Her restless leg symptoms are stable on Gabapentin. rarely has a breakthrough attack at night- but not overly bothersome. Pt has had recent GI consult- for worsening acid reflux and h/o constipation. Scheduled for EGD in Jun. She states her urinary s/s/ are better since starting a FodMap diet and switching from omeprazole to pantoprazole. Overall this has helped w/ constipation, intermittent back pain and the urinary s/s. [facility] Medical History Multiple sclerosis GERD (gastroesophageal reflux disease) Chronic constipation Palpitations Surgical History Hx of colonoscopy History of endometrial ablation Family History Mother Uterus cancer Rheumatoid arthritis Fibromyalgia CAD (coronary artery disease) Angina pectoris, unspecified Father Lupus Brain aneurysm Sister Cervical cancer Maternal Aunt Breast cancer, Onset Age: 35 Other Mental health disorder Substance use disorder Social History Household Members: Spouse Housing: House Alcohol intake: never Patient Tobacco Use Status: Never used Tobacco service: No Current occupational status: employed Current occupation: [employer] Current occupational exposures/hazards: No Sexual orientation: Straight/Heterosexual Gender identity: Female Physical Exam Const General: cooperative and no acute distress Orientation/consciousness: patient oriented x3 Resp Effort & Inspection: normal respiratory effort and able to speak in complete sentences Neuro General: patient oriented x3 Cranial nerves: Yes CN's II-XII intact bilaterally Cognition (Neuro): normal cognition Psych Appearance: grossly normal Mental Status: mental status grossly normal Speech and movement: Normal speech and movement present Affect: normal affect Attitude: cooperative Telehealth Telehealth Telehealth Platform: [employer] Location of provider rendering services: practice address Location of patient: address on file Patient Identification confirmed using: Name, : Yes Telehealth method: video Patient verbally consented to treatment: Yes Patient verbally consented to billing insurance company: Yes Patient informed of any privacy concerns related to visit: Yes Minutes spent on Phone/Video with Pt.: 15 Assessment & Plan Assessment & Plan (1) Multiple sclerosis: Code(s): G35 - Multiple sclerosis Category: Medical (2) Restless leg syndrome: Comment: Failed ropinirole: Caused compulsive behaviors. Code(s): G25.81 - Restless legs syndrome Category: Medical Plan For MS: Continue Vumerity. Last CBC/CMP in February 2024- BUN 20 high, CBC and CMP otherwise normal. CBC, CMP in 2 months- already ordered. Reviewed brain and c-spine MRI w/wo- stable Will ararnge for follow-up brain MRI. Monitor urinary s/s- improved since starting FodMap diet. Future considerations: Urology consult. For restless leg syndrome: Continue gabapentin 200 mg q.h.s. Previous trials: Ropinirole caused compulsive behaviors. ? For cervicalgia: Continue PT stretches Magnesium 400mg qhs. Future consideration- Baclofen, Flexeril- low dose as pt is sensitive to sedating medications. ? F/u w/ GI as scheduled. Cardiology consult as ordered. ? Follow-up in 6 months or sooner p.r.n. Orders: Orders MR head/brain wo/w con Today G35 - Multiple sclerosis Medications: Refilled magnesium oxide may hold for loose stools 400 mg PO BEDTIME 30 days 30 tabs 6RF Coding Level of Care Code Tele Est Pt Level 4 (24176) Diagnoses Multiple sclerosis G35 Restless leg syndrome G25.81
== END 2024-04-06 13:20 | disposition home or self-care (01) ==
LOC: HO.HSMS 12:02
PROVIDERS: PCP Hospitalist; Visit Provider Nurse Practitioner Family
DX: G35 Multiple sclerosis (principal); G25.81 Restless legs syndrome
CPT/HCPCS: 99214

== ENCOUNTER → 2024-04-06 12:02 | Outpatient (BNVA) | payer OTHER, SELFPAY | PROVIDERS: PCP Hospitalist; Visit Provider Nurse Practitioner Family ==

== ENCOUNTER 2024-05-12 14:52 | Outpatient (REF) | payer OTHER, SELFPAY ==
--- NOTE | ~2024-05-12 | MR_ITS ---
EXAMINATION: MR BRAIN WITHOUT AND WITH CONTRAST CLINICAL INFORMATION: Multiple sclerosis COMPARISON: MRI of brain on 05/12/2024 TECHNIQUE: Multiplanar, multisequence MRI of the brain was obtained before and after the intravenous administration of 7 mL Gadavist. FINDINGS: Ventricles, sulci and cisterns are normal. Persistent bilateral scattered nonenhancing T2 hyperintense focal lesions are seen in frontal and parietal deep white matters. The largest lesion is seen in mid right osei radiata oriented perpendicular to the lateral ventricle, measuring 0.5 cm in AP diameter, 0.6 cm in width, 0.8 cm in vertical height, showing T1 hypointensity, positive black hole sign. The corpus callosum is not involved. No focal brainstem or cerebellar lesions with abnormal signal can be seen. Diffusion weighted images show no abnormal regional decrease in diffusion. Post contrast images show no enhancing cerebral, brainstem or cerebellar lesions. No abnormal meningeal enhancement is seen. The pituitary gland is normal. Optic chiasm is not displaced. Cerebellar tonsils position is normal. MR/MR head/brain wo/w con IMPRESSION: 1. Unchanged bilateral multiple frontal and parietal multiple demyelinating lesions consistent with known history of multiple sclerosis. There is no interval change in size of the largest right mid osei radiata lesion with positive black hole sign, consistent with irreversible axonal damage. 2. No acute cerebral infarction is seen. 3. No evidence of space occupying mass lesion or enhancing acutely demyelinating lesion could be found. 4. No evidence of intracranial hemorrhage.
[2024-05-12] MEDS: gadobutroL 7.5 ML VIAL IVPUSH (15:54)
== END 2024-05-12 14:53 | disposition home or self-care (01) ==
LOC: HO.MRI 14:52
PROVIDERS: PCP Hospitalist; Visit Provider Nurse Practitioner Family
DX: G35 Multiple sclerosis (principal)
CPT/HCPCS: 70553; A9585

== ENCOUNTER 2024-06-10 12:59 | Outpatient (REF) | payer OTHER, SELFPAY ==
[2024-06-10 13:14] LABS: MANUAL DIFF FLAG NO
[2024-06-10 13:39] LABS: Basophils Percent Auto 0.8 % (0-2); Eosinophils Absolute Auto 0.1 X10*3/uL (0.0-0.4); Eosinophils Percent Auto 1.9 % (0-4); Hematocrit 39.3 % (37.0-47.0); Hemoglobin 13.2 g/dl (12.0-16.0); Imm Gran Abs Auto 0.02 X10*3/uL (0.00-0.03); Imm Gran Pct Auto 0.4 % (0.0-0.4); Lymphocytes Absolute Auto 1.1 X10*3/uL (1.2-4.9); Lymphocytes Percent Auto 21.2 % (20-40); Mean Corpuscular HGB Conc 33.6 g/dl (31.0-35.0); Mean Corpuscular Hemoglobin 30.7 pg (27.0-33.0); Mean Corpuscular Volume 91.4 fL (80.0-98.0); Mean Platelet Volume 10.4 fL (9.4-12.3); Monocytes Absolute Auto 0.5 X10*3/uL (0.1-1.2); Monocytes Percent Auto 8.9 % (2-11); Neutrophils Absolute Auto 3.4 x10*3/uL (2.0-8.3); Neutrophils Percent Auto 66.8 % (45-73); Platelet Count 223 X10*3/uL (160-400); Red Cell Distribution Width 13.5 % (11.0-16.0); White Blood Count 5.1 X10*3/uL (4.8-10.8)
[2024-06-10 13:50] LABS: Appearance Urine Clear; Color Urine Dark Yellow; Glucose Urine UA Negative (Negative); Leukocyte Esterase Urine Small (1+) (Negative); Nitrite Urine Negative (Negative); PH 5.5 (5.0-9.0); Specific Gravity - Urine >= 1.030 (1.005-1.025); UMIC TRIGGER UA YES; Urine Blood Negative (Negative); Urine Ketones Trace mg/dL (Negative); Urine Protein 30 (1+) mg/dL (Neg-Trace)
[2024-06-10 14:07] LABS: Bacteria Urine None Seen (None Seen); Calcium Oxalate Crystals Urine Present; Hyaline Casts Urine 0-2 /LPF (0-2); RBC Urine 0-2 /HPF (0-2); WBC Urine 21-50 /HPF (0-5)
[2024-06-10 14:15] LABS: Erythrocyte Sedimentation Rate 12 MM/HR (0-20)
[2024-06-10 14:21] LABS: Alanine Aminotransferase 14 U/L (0-31); Albumin Level 4.1 g/dL (3.5-5.0); Alkaline Phosphatase 50 U/L (39-117); Anion Gap 13 (12-20); Aspartate Amino Transferase 15 U/L (5-31); Bilirubin Total 0.6 mg/dL (0.0-1.0); Blood Urea Nitrogen 17 mg/dL (9-16); C Reactive Protein 0.14 mg/dL (< or = 0.50); Calcium 9.5 mg/dL (8.4-10.2); Carbon Dioxide 27 mmol/L (22-29); Chloride 108 mmol/L (96-108); Estimated Glomerular Filt Rate > 60; Glucose Random 107 mg/dL (60-115); Potassium 3.8 mmol/L (3.3-5.1); Sodium 144 mmol/L (135-145); Total Protein 6.9 g/dL (6.5-8.0)
[2024-06-10 19:05] LABS: Creatinine Urine 251.24 mg/dL; Protein/Creatinine Ratio, Ur 0.05 (<0.2); Total Protein Urine Random 13 mg/dL (<12)
[2024-06-11 14:08] LABS: Anti DNA DS Antibody 1 IU/mL
[2024-06-13 05:09] LABS: Complement C3 99 mg/dL (83-193)
== END 2024-06-10 13:00 | disposition home or self-care (01) ==
LOC: HO.LAB 12:59
PROVIDERS: Visit Provider Student in an Organized Health Care Education/Training Program
DX: M32.19 Other organ or system involvement in systemic lupus erythematosus (principal)
CPT/HCPCS: 36415; 80053; 81001; 82570; 84156; 85025; 85652; 86140; 86160; 86225

== ENCOUNTER 2024-06-11 14:14 | Outpatient (AMB) | payer OTHER, SELFPAY ==
[2024-06-11 14:22] VITALS: BP 112/74; BMI 29.8
--- NOTE | 2024-06-11 14:22 | A.OFFVIS_ITS ---
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 She is doing well with concerns: Occasional irritation she thinks is related to external pads and leakage. She denies any odor vaginal discharge pelvic pain or urinary symptoms. Attempting to eat a healthy diet with calcium and vitamin D. Currently not sexually active. Last pap smear; 2018. Last mammogram; 2022. Colonoscopy is UTD. FH breast cancer. [facility] Medical History (Updated 06/11/24 @ 14:52 by Kaylie Abdalla CNM) Sessile serrated polyp of colon Multiple sclerosis GERD (gastroesophageal reflux disease) Chronic constipation Palpitations Surgical History (Updated 06/11/24 @ 14:28 by MARILIN Churchill) Hx of colonoscopy History of endometrial ablation Family History Mother Uterus cancer Rheumatoid arthritis Fibromyalgia CAD (coronary artery disease) Angina pectoris, unspecified Father Lupus Brain aneurysm Sister Cervical cancer Maternal Aunt Breast cancer, Onset Age: 35 Other Mental health disorder Substance use disorder Social History (Updated 06/11/24 @ 15:01 by Kaylie Abdalla CNM) Household Members: Spouse Housing: House Alcohol intake: never Patient Tobacco Use Status: Never used Tobacco service: No Current occupational status: employed 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 Current occupational exposures/hazards: No Sexual orientation: Straight/Heterosexual Gender identity: Female Female Reproductive History Menstrual Menopause type: surgical Total pregnancies: 3 Full term: 3 Number of Living Children: 3 Date of last pap smear: 02/20/19 (neg pap and hpv) History of abnormal pap smear: Yes (11/20 ascus) Date of Mammogram: 05/15/23 (Birad 1) Review of Systems Const All systems reviewed & are unremarkable except as noted in HPI and below Reports as per HPI Eyes Reports no additional complaints ENT Reports no additional complaints Card Reports no additional complaints Resp Reports no additional complaints GI Reports as per HPI and Reports no additional complaints Reports as per HPI Musc Reports no additional complaints Skin/Breast Reports as per HPI Neuro Reports no additional complaints Psych Reports no additional complaints Endo Reports no additional complaints Lico/Lymph Reports no additional complaints Aller/Immun Reports no additional complaints Physical Exam Vital Signs: Last Vital Signs BP 112/74 06/11/24 14:22 BMI result Body Mass Index 29.8 Const General: cooperative, healthy appearing, no acute distress, well developed and alert Orientation/consciousness: patient oriented x3 HEENT Head: Yes normal to inspection Eyes General: appearance normal, both eyes and all related structures Neck Neck: Yes normal visual inspection Thyroid: Thyroid normal Chest Chest palpation & inspection: normal inspection of the chest and other (no puckering, dimpling, peau de orange, retraction, discharge, masses) Breast/axilla inspection: normal inspection of the breasts Breast/axilla palpation: normal palpation of the breasts Resp Effort & Inspection: normal respiratory effort GI Inspection: Yes normal to inspection Palpation (GI): Soft to palpation Rectal Exam - Female: deferred General: Yes bladder normal to palpation External Female Exam: normal external appearance, normal appearance of the urethra and erythema Speculum Exam - Vagina: normal appearance of the vagina, normal palpation and normal vaginal discharge Speculum Exam - Cervix: normal appearance of the cervix and normal palpation Bimanual exam- vagina & uterus: normal bimanual exam, normal palpation, uterine size normal, bladder normal to palpation, normal palpation and non-tender Bimanual Exam- Adnexa, other: no masses Skin General skin exam: no rashes or lesions noted Rashes: no rashes Neuro General: patient oriented x3 Cognition (Neuro): normal cognition Extrem General: Yes normal to inspection Psych Attitude: cooperative Thought process: Normal thought process present Assessment & Plan Assessment & Plan (1) Encounter for well woman exam with routine gynecological exam: Code(s): Z01.419 - Encounter for gynecological examination (general) (routine) without abnormal findings Category: Medical (2) Vulvar irritation: Code(s): N90.89 - Other specified noninflammatory disorders of vulva and perineum Plan Discussed: Current recommendations for pap smears per ASCCP guidelines. Breast awareness, periodic self breast exams and yearly mammogram. Maintain a healthy lifestyle, well balanced diet including Calcium 1,200 mg and Vitamin D 600 IU daily, and routine exercise. Skin care: various products for cleansers, pads and topical ointments such as Aquaphor for skin barrier. Contact the office with any postmenopausal bleeding. Patient verbalizes understanding and agrees to the plan of care. She was given opportunity to ask questions and all questions were answered to the best of my ability. RTO in 1 year for annual sales apprentice exam. This note is constructed using voice recognition software. While every effort has been made to ensure accuracy, construction coordinator errors may have been included. Orders: Orders Bacterial Vaginosis Panel Today N90.89 - Other specified noninflammatory disorders of vulva and perineum PAP + HPV E6/E7 rfx 18/45 Today Z01.419 - Encounter for gynecological examination (general) (routine) without abnormal findings Coding Level of Care Code Est Pt Prev Care 40-64y(91997) Diagnoses Encounter for well woman exam with routine gynecological exam Z01.419 Vulvar irritation N90.89
== END 2024-06-11 15:12 | disposition home or self-care (01) ==
PROVIDERS: PCP Hospitalist; Visit Provider Advanced Practice Midwife
DX: Z01.419 Encounter for gynecological examination (general) (routine) without abnormal findings (principal); N90.89 Other specified noninflammatory disorders of vulva and perineum
CPT/HCPCS: 99396

== ENCOUNTER 2024-06-11 14:14 | Outpatient (REF) | payer OTHER, SELFPAY ==
[2024-06-12 11:52] LABS: Bacterial Vaginosis PCR NEGATIVE (Negative); Candida Group PCR NOT DETECTED (Not Detect); Candida glab krusei PCR NOT DETECTED (Not Detect); Trichomonas vaginalis PCR NOT DETECTED (Not Detect)
[2024-06-16 21:23] LABS: HPV mRNA E6/E7 Detected (Not Detected)
[2024-06-16 21:28] LABS: HPV 16 RNA NOT DETECTED (NOT DETECTED)
== END 2024-06-11 14:15 | disposition home or self-care (01) ==
LOC: HO.LAB 14:14
PROVIDERS: PCP Hospitalist; Visit Provider Advanced Practice Midwife
DX: Z01.419 Encounter for gynecological examination (general) (routine) without abnormal findings (principal); Z11.51 Encounter for screening for human papillomavirus (HPV); N90.89 Other specified noninflammatory disorders of vulva and perineum
CPT/HCPCS: 0352U; 36415; 87624; 87625; 88175

== ENCOUNTER 2024-06-17 07:31 | Outpatient (AMB) | payer OTHER, SELFPAY ==
--- NOTE | 2024-06-17 07:32 | A.OFFVIS_ITS ---
Vital Signs 06/17/24 07:36 Height 5 ft 3 in Weight 166 lb 14.239 oz BMI 29.6 BP 115/70 Blood Pressure Location Lt brachial Position Sitting Pulse 84 Pulse Source Pulse Oximeter Pulse Oximetry (%) 100 Oxygen Delivery Method Room Air Intake Visit Reasons: SLE/LM Intake Note: Patient presents for SLE. Allergies Penicillins [PENICILLINS] Allergy (Intermediate, Verified 06/17/24 07:37) [facility] Medication List - Last Reconciled 06/17/24 by Robert Campbell MD bisacodyl (Dulcolax (bisacodyl)) 10 mg (2 x 5 mg) PO BEDTIME diroximel fumarate (Vumerity) 462 mg (2 x 231 mg) PO BID 30 days docusate sodium 100 mg PO BEDTIME fluticasone propionate 50 mcg/actuation (Flonase Allergy Relief) 1 spray intranasal Q12H 30 days gabapentin 200 mg (2 x 100 mg) PO BEDTIME 90 days hydroxychloroquine Take 1 tab Twice daily x4 days a week and 1 tab daily x3 days a week ibuprofen 400 mg PO BID magnesium oxide 400 mg PO BEDTIME 30 days pantoprazole 40 mg PO DAILY HPI Comments Details: 54-year-old female with UCTD/mild SLE returns for follow-up. Remains on hydroxychloroquine. She states that she feels about the same overall. No complaints today. No recent fevers, unintentional weight loss, skin rashes or swollen joints. Initial history: This is a 52-year-old female who presents for evaluation of a positive SHARA. Patient stated that since her teens she has had intermittent pain and fatigue. 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 She was started on Plaquenil and she took it for about 6 years which significantly controlled her pain and fatigue. In 2019 she developed left footdrop and was eventually diagnosed with MS. She is following up with Neurology and her MS is currently well controlled. Currently her main complaint is generalized fatigue. She is unable to exercise. She has been taking plenty of NSAIDs. She has some pain in some areas when touched especially in her lower back as well as pain on the outside of her hips and the inside of her knees. She also has been having ringing in her left ear. She is due to see ENT soon. Her mother was diagnosed with rheumatoid arthritis and her father had lupus manifested by skin rashes. [facility] Medical History Sessile serrated polyp of colon Multiple sclerosis GERD (gastroesophageal reflux disease) Chronic constipation Palpitations Surgical History Hx of colonoscopy History of endometrial ablation Family History Mother Uterus cancer Rheumatoid arthritis Fibromyalgia CAD (coronary artery disease) Angina pectoris, unspecified Father Lupus Brain aneurysm Sister Cervical cancer Maternal Aunt Breast cancer, Onset Age: 35 Other Mental health disorder Substance use disorder Social History Household Members: Spouse Housing: House Alcohol intake: never Patient Tobacco Use Status: Never used Tobacco service: No Current occupational status: employed 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 Current occupational exposures/hazards: No Sexual orientation: Straight/Heterosexual Gender identity: Female Female Reproductive History Menstrual Total pregnancies: 4 Number of Living Children: 3 Ab spontaneous: 1 Review of Systems Const Denies fever(s) and Denies weight loss Musc Denies arthralgias and Denies joint swelling Skin/Breast Denies rash Physical Exam Vital Signs: Last Vital Signs Pulse 84 06/17/24 07:36 BP 115/70 06/17/24 07:36 Pulse Ox 100 06/17/24 07:36 Oxygen Delivery Method Room Air 06/17/24 07:36 BMI result Body Mass Index 29.6 Const General: cooperative, healthy appearing, comfortable, no acute distress and well developed Nutritional Appearance: overweight Orientation/consciousness: patient oriented x3 Limitations: no limitations HEENT Head: Yes normocephalic and Yes atraumatic Mouth: moist mucous membranes Resp Effort & Inspection: normal respiratory effort and able to speak in complete sentences GI Inspection: No distended Palpation (GI): Soft to palpation and nontender Skin Other: No rashes today Neuro General: patient oriented x3 Extrem Other: No synovitis Normal nailfold capillaroscopy Assessment & Plan Assessment & Plan (1) Lupus (systemic lupus erythematosus): Comment: vs UCTD (+ SHARA, painless oral ulcers, multiple sclerosis, fatigue, generalized pain) dx 2006 was on HCQ for about 9 years with improvement Hydroxychloroquine restarted on11/26 with significant improvement Code(s): M32.9 - Systemic lupus erythematosus, unspecified Category: Medical Qualifiers: Systemic lupus erythematosus type: unspecified Systemic lupus erythematosus organ involvement: other Qualified Code(s): M32.19 - Other organ or system involvement in systemic lupus erythematosus Plan: This is a 54-year-old female with mild lupus/UCTD (+ SHARA, multiple sclerosis, painless oral ulcers, nasal ulcers, fatigue, generalized pain)?presents for follow-up.? Doing well overall. No active disease on exam. Labs are stable. Continue hydroxychloroquine to 400 mg x 4 days a week and 200 mg x 3 days a week Labs before next visit 6 months (2) Long-term use of hydroxychloroquine: Comment: on HCQ for a total of 10 years so far. 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 - Other organ or system involvement in systemic lupus erythematosus Complete Blood Count Auto Diff 6 Months - Other organ or system involvement in systemic lupus erythematosus Comprehensive Met. Panel 6 Months - Other organ or system involvement in systemic lupus erythematosus Anti DNA DS Antibody 6 Months . - Other organ or system involvement in systemic lupus erythematosus Complement C3 6 Months . - Other organ or system involvement in systemic lupus erythematosus Complement C4 6 Months . - Other organ or system involvement in systemic lupus erythematosus C Reactive Protein 6 Months . - Other organ or system involvement in systemic lupus erythematosus Protein Creatinine Ratio, Ur 6 Months . - Other organ or system involvement in systemic lupus erythematosus Medications: Refilled hydroxychloroquine Take 1 tab Twice daily x4 days a week and 1 tab daily x3 days a week 44 tabs 5RF Coding Level of Care Code Est Pt Level 4 (48148) Diagnoses Systemic lupus erythematosus with other organ involvement, unspecified SLE type M3. Systemic lupus erythematosus type: unspecified Systemic lupus erythematosus organ involvement: other Long-term use of hydroxychloroquine Z79.899
[2024-06-17 07:36] VITALS: BP 115/70; PULSE 84; O2SAT 100; BMI 29.6
== END 2024-06-17 07:48 | disposition home or self-care (01) ==
PROVIDERS: PCP Family Medicine; Visit Provider Student in an Organized Health Care Education/Training Program
DX: M32.19 Other organ or system involvement in systemic lupus erythematosus (principal); Z79.899 Other long term (current) drug therapy
CPT/HCPCS: 99214

== ENCOUNTER → 2024-06-17 07:31 | Outpatient (BNVA) | payer OTHER, SELFPAY | PROVIDERS: PCP Family Medicine; Visit Provider Student in an Organized Health Care Education/Training Program ==

== ENCOUNTER 2024-07-01 13:07 | Outpatient (AMB) | payer OTHER, SELFPAY ==
[2024-07-01 13:13] VITALS: BP 140/74; PULSE 90; BMI 29.4
--- NOTE | 2024-07-01 13:13 | MHC.OFFVIS ---
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 Required: No Accompanied by: Self / Same As Patient Allergies Penicillins [PENICILLINS] Allergy (Intermediate, Verified 06/17/24 07:37) RASH Medication List - Last Reconciled 07/01/24 by Carlos Silverman MD bisacodyl (Dulcolax (bisacodyl)) 10 mg (2 x 5 mg) PO BEDTIME diroximel fumarate (Vumerity) 462 mg (2 x 231 mg) PO BID 30 days docusate sodium 100 mg PO BEDTIME fluticasone propionate 50 mcg/actuation (Flonase Allergy Relief) 1 spray intranasal Q12H 30 days gabapentin 200 mg (2 x 100 mg) PO BEDTIME 90 days hydroxychloroquine Take 1 tab Twice daily x4 days a week and 1 tab daily x3 days a week ibuprofen 400 mg PO BID magnesium oxide 400 mg PO BEDTIME 30 days pantoprazole 40 mg PO DAILY HPI Comments Details: Tresa is here for cardiac consultation. She has brought his summary sheet of prior cardiac issues. Apparently 2005, she was having palpitations and fainted at work. She underwent workup including echocardiogram, stress test, tilt-table and found to have frequent PACs and PVCs. Then put on atenolol. She is also under treatment by rheumatology for connective tissue disease. In 2013 she again had fainting episode and chest pain. Thought to have persistent tachycardia and suspected stress-induced. Then was continued on atenolol. In 2015 she apparently stopped it as she was without health insurance. Starting 2019, she has been doing a lot of walking, several miles a day. Over the last couple of years, she has been having symptoms of generalized fatigue and exhaustion. Not much of energy. Some palpitations. Some acid reflux type symptoms. She does not believe that part is cardiac. When she is bending down, she can get lightheaded. No sensation of room spinning. No syncope. She would like to get checked out. FOR[facility]LY [facility] Medical History Sessile serrated polyp of colon Multiple sclerosis GERD (gastroesophageal reflux disease) Chronic constipation Palpitations Surgical History Hx of colonoscopy History of endometrial ablation Family History (Updated 07/01/24 @ 13:20 by Marysol Romero CMA) Mother Uterus cancer Rheumatoid arthritis Fibromyalgia CAD (coronary artery disease) Angina pectoris, unspecified Father Lupus Brain aneurysm Sister Cervical cancer Maternal Aunt Breast cancer, Onset Age: 35 Maternal Grandmother History of heart attack DM2 (diabetes mellitus, type 2) Other Mental health disorder Substance use disorder Social History Household Members: Spouse Housing: House Alcohol intake: never Patient Tobacco Use Status: Never used Tobacco service: No Current occupational status: employed 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 Current occupational exposures/hazards: No Sexual orientation: Straight/Heterosexual Gender identity: Female Review of Systems Const Denies chills, Denies daytime sleepiness, Denies fatigue, Denies fever(s), Denies poor appetite, Denies snoring, Denies stops breathing during sleep, Denies weakness, Denies weight gain and Denies weight loss Eyes Denies loss of vision ENT Denies dizziness and Denies hearing loss Card Denies chest pain, Denies irregular heart rhythm, Denies claudication, Denies leg edema, Denies lightheadedness, Denies palpitations, Denies dyspnea on exertion and Denies orthopnea Resp Denies cough, Denies excessive phlegm production, Denies dyspnea on exertion, Denies snoring and Denies wheezing GI Denies abdominal pain, Denies hematochezia, Denies change in bowel habits, Denies nausea and Denies vomiting Denies urinary frequency and Denies dysuria Musc Denies arthralgias, Denies muscle weakness, Denies numbness and Denies other Skin/Breast Denies nail changes and Denies rash Neuro Denies Abnormal speech present, Denies dizziness, Denies loss of vision, Denies memory loss, Denies numbness and Denies weakness Psych Denies depression and Denies memory loss Endo Denies fatigue and Denies palpitations Lico/Lymph Denies easy bruising Aller/Immun Denies wheezing Physical Exam Vital Signs: Last Vital Signs Pulse 90 07/01/24 13:13 BP 140/74 H 07/01/24 13:13 BMI result Body Mass Index 29.4 Const General: comfortable and no acute distress Orientation/consciousness: patient oriented x3 HEENT Other: Unremarkable Head: Yes normal to inspection Neck Neck: Yes normal visual inspection Chest Chest palpation & inspection: normal inspection of the chest Resp Auscultation: clear to auscultation bilaterally Cardio Palpation: normal PMI Heart sounds: S1 normal heart sound present, S2 normal heart sound present, no gallops, no murmurs and no rubs GI Palpation (GI): Soft to palpation Back/Spine/Pelvis Other: unremarkable Skin General skin exam: no rashes or lesions noted Neuro General: patient oriented x3 Speech: No Abnormal speech present Extrem General: Yes normal to inspection Psych Mental Status: mental status grossly normal Office Procedures EKG Details: EKG with underlying sinus rhythm at 90/Min; nonspecific ST-T changes; normal GA; slight prolongation of corrected QT at 491 milliseconds. [id number], Complete Assessment & Plan Assessment & Plan (1) Cardiomyopathy: Code(s): I42.9 - Cardiomyopathy, unspecified Category: Medical Plan: In the echocardiogram, LVEF is 48%. Mild mitral leaflet thickening with mild regurgitation. Otherwise unremarkable. Mild cardiomyopathy but does not explain any of her symptoms. Uncertain etiology. We will do an exercise stress perfusion imaging study for further evaluation. Would like to look for appropriate heart rate/blood pressure response and also for perfusion abnormalities. If necessary, consider cardiac MRI. (2) Prolonged QT interval: Code(s): R94.31 - Abnormal electrocardiogram [ECG] [EKG] Category: Medical Plan: Slight QT prolongation. We will recheck an EKG in the future. Avoid QT prolonging drugs. Orders: Orders CA stress test Today I42.9 - Cardiomyopathy, unspecified, R07.2 - Precordial pain NM cardiolite stress test Today I42.9 - Cardiomyopathy, unspecified, R07.2 - Precordial pain Coding Level of Care Code New Pt Level 4 (58929) Diagnoses Cardiomyopathy I42.9 Prolonged QT interval R94.31 CPT Codes EKG - CPT: 26567-Ahfkgukjwscixwifz, Complete ([id number])
== END 2024-07-01 13:42 | disposition home or self-care (01) ==
PROVIDERS: PCP Hospitalist; Visit Provider Internal Medicine
DX: I42.9 Cardiomyopathy, unspecified (principal); R94.31 Abnormal electrocardiogram [ECG] [EKG]
CPT/HCPCS: 93010; 99214

== ENCOUNTER → 2024-07-01 13:07 | Outpatient (BNVA) | payer OTHER, SELFPAY | PROVIDERS: PCP Hospitalist; Visit Provider Internal Medicine | DX: I42.9 Cardiomyopathy, unspecified (principal); R94.31 Abnormal electrocardiogram [ECG] [EKG] | CPT/HCPCS: 93005 ==

== ENCOUNTER 2024-07-13 15:49 | Outpatient (REF) | payer OTHER, SELFPAY | END 2024-07-13 15:50 | disposition home or self-care (01) | LOC: HO.LNP 15:49 | PROVIDERS: PCP Family Medicine; Visit Provider Obstetrics & Gynecology | DX: R87.610 Atypical squamous cells of undetermined significance on cytologic smear of cervix (ASC-US) (principal); R87.810 Cervical high risk human papillomavirus (HPV) DNA test positive | CPT/HCPCS: 57454; 88305; 88342; 88360 ==

== ENCOUNTER 2024-07-13 15:49 | Outpatient (AMB) | payer OTHER, SELFPAY ==
[2024-07-13 16:05] VITALS: BP 116/62; BMI 29.3
--- NOTE | 2024-07-13 16:05 | A.OFFVIS_ITS ---
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 Required: No Information Interpreted: non-clinical & clinical Missile Inspector: Missile Inspector Present (Tana GASTON) Accompanied by: Self / Same As Patient Allergies Penicillins [PENICILLINS] Allergy (Intermediate, Verified 07/13/24 16:11) RASH Post menopausal: Yes HPI Comments Details: Presenting for colposcopy regarding ascus/HPV E6/E7 positive [facility] Medical History Sessile serrated polyp of colon Multiple sclerosis GERD (gastroesophageal reflux disease) Chronic constipation Palpitations Surgical History Hx of colonoscopy History of endometrial ablation Family History Mother Uterus cancer Rheumatoid arthritis Fibromyalgia CAD (coronary artery disease) Angina pectoris, unspecified Father Lupus Brain aneurysm Sister Cervical cancer Maternal Aunt Breast cancer, Onset Age: 35 Maternal Grandmother History of heart attack DM2 (diabetes mellitus, type 2) Other Mental health disorder Substance use disorder Social History Household Members: Spouse Housing: House Alcohol intake: never Patient Tobacco Use Status: Never used Tobacco service: No Current occupational status: employed 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 We thoroughly discussed the procedure itself, including its details, alternatives, and all associated risks. This included but not limited to the following complications such as bleeding, infection, and injury to the vagina, bladder, and vessels, as well as the potential need for transfusion with all its associated risks. Subsequently, the patient sign the consent. Pap smear result: Ascus/HPV E6/E7 positive Procedure: During the procedure, the following steps were performed: A speculum was inserted, and acetic acid was applied. Colposcopy was conducted, allowing visualization of the transformation zone. Acetowhite lesions were identified at the 11+12+1+4 o'clock position. Cervical biopsies were obtained from the 11+12+1+4 o'clock position, followed by an endocervical curettage (ECC). Vaginoscopy of the upper vagina revealed no evidence of aceto-white lesions. Hemostasis was achieved using Monsel solution, and the patient tolerated the procedure well. Post-Procedure Instructions: The patient was advised to promptly contact the office or the after hours answering service or go to the emergency room if experiencing a temperature exceeding 100.4?F, abdominal pain, nausea/vomiting, or bleeding. Additionally, the patient was instructed to abstain from vaginal intercourse and bathtub use. The patient confirmed understanding of these instructions. Discharge Instructions: The patient was instructed to schedule a follow-up appointment in 2 weeks for further evaluation and management. Please note that this note was generated using a voice recognition program, and errors may have occurred during transcriptionist. [id number] of cervix including upper vagina with biopsy and ECC Procedure code (CPT) selection complete Assessment & Plan Assessment & Plan (1) ASCUS with positive high risk HPV cervical: Code(s): R87.610 - Atypical squamous cells of undetermined significance on cytologic smear of cervix (ASC-US); R87.810 - Cervical high risk human papillomavirus (HPV) DNA test positive Category: Medical Plan: Discussed with the patient the result of her abnormal pap, its significance, risk of progression, persistence, and regression. the false positive/negative rate of a Pap smear as a screening test in detecting cervical cancer and the indication for a diagnostic test -colposcopy, biopsy, endocervical curettage. The patient verbalized understanding and agreed with the plan, all questions answered. Colpo/biopsy/ECC done, see procedure note Orders: Orders AMB Colposcopy Today R87.610 - Atypical squamous cells of undetermined significance on cytologic smear of cervix (ASC-US), R87.810 - Cervical high risk human papillomavirus (HPV) DNA test positive Coding Level of Care Code Procedure Only Diagnoses ASCUS with positive high risk HPV cervical R87.610; R87.810 CPT Codes Colposcopy - CPT: 38570-Jnhvnizsa of cervix including upper vagina with biopsy and ECC ([id number])
== END 2024-07-13 16:22 | disposition home or self-care (01) ==
PROVIDERS: PCP Family Medicine; Visit Provider Obstetrics & Gynecology
DX: R87.610 Atypical squamous cells of undetermined significance on cytologic smear of cervix (ASC-US) (principal); R87.810 Cervical high risk human papillomavirus (HPV) DNA test positive
CPT/HCPCS: 57454

== ENCOUNTER 2024-08-05 15:38 | Outpatient (AMB) | payer OTHER, SELFPAY ==
--- NOTE | 2024-08-05 15:47 | A.OFFVIS_ITS ---
Vital Signs 08/05/24 15:50 Height 5 ft 3 in Weight 165 lb 5.547 oz BMI 29.3 Intake Visit Reasons: colpo results Allergies Penicillins [PENICILLINS] Allergy (Intermediate, Verified 07/13/24 16:11) RASH HPI Comments Details: Presenting post colpo for follow-up. The patient is doing well with no complaints. The pathology showed the following: A. Endocervix, curettage: Strips of endocervical epithelium within normal limits. B. Cervix, 1 o'clock, biopsy: Squamous mucosa within normal limits; no endocervical epithelium present. C. Cervix, 4 o'clock, biopsy: Squamous atrophy; otherwise within normal limits; endocervical epithelium within normal limits. D. Cervix, 11 o'clock, biopsy: Squamous atrophy; otherwise within normal limits; endocervical epithelium within normal limits. E. Cervix, 12 o'clock, biopsy: - Low-grade squamous intraepithelial lesion (KEREN 1). - Endocervical epithelium within normal limits [facility] Medical History Sessile serrated polyp of colon Multiple sclerosis GERD (gastroesophageal reflux disease) Chronic constipation Palpitations Surgical History Hx of colonoscopy History of endometrial ablation Family History Mother Uterus cancer Rheumatoid arthritis Fibromyalgia CAD (coronary artery disease) Angina pectoris, unspecified Father Lupus Brain aneurysm Sister Cervical cancer Maternal Aunt Breast cancer, Onset Age: 35 Maternal Grandmother History of heart attack DM2 (diabetes mellitus, type 2) Other Mental health disorder Substance use disorder Social History Household Members: Spouse Housing: House Alcohol intake: never Patient Tobacco Use Status: Never used Tobacco service: No Current occupational status: employed Current [place] [employer] [place] Current occupational exposures/hazards: No Sexual orientation: Straight/Heterosexual Gender identity: Female Review of Systems Const All systems reviewed & are unremarkable except as noted in HPI and below Reports as per HPI and Reports no additional complaints GI Reports no additional complaints Reports no additional complaints Assessment & Plan Assessment & Plan (1) Dysplasia of cervix, low grade (KEREN 1): Code(s): N87.0 - Mild cervical dysplasia Category: Medical Plan: Discussed with the patient the pathology results of the colposcopy biopsies & endocervical curettage ( mild dysplasia-KEREN 1). Discussed with the patient the sensitivity specificity, positive and negative predictive value in detecting cervical cancer in addition discussed the regression, persistence and progression rates. Recommended co-testing in 12 months, if cytology and or HPV are abnormal will proceed was colposcopy biopsy and endocervical curettage, if lesions gets worse or stays persistent for 2 years will proceed with loop electric excision procedure. Instructions given to the patient to schedule a co test appointment in 1 year. All questions answered the patient verbalized understanding. Coding Level of Care Code Est Pt Level 3 (88587) Diagnoses Dysplasia of cervix, low grade (KEREN 1) N87.0
[2024-08-05 15:50] VITALS: BMI 29.3
== END 2024-08-05 15:52 | disposition home or self-care (01) ==
PROVIDERS: PCP Family Medicine; Visit Provider Obstetrics & Gynecology
DX: N87.0 Mild cervical dysplasia (principal)
CPT/HCPCS: 99213

== ENCOUNTER → 2024-08-05 15:38 | Outpatient (BNVA) | payer OTHER, SELFPAY | PROVIDERS: PCP Family Medicine; Visit Provider Obstetrics & Gynecology ==

== ENCOUNTER → 2024-08-07 07:39 | Outpatient (REF) | payer OTHER, SELFPAY ==
--- NOTE | ~2024-08-07 | NM_ITS ---
EXERCISE MYOCARDIAL PERFUSION STUDY INDICATION: Cardiomyopathy TECHNIQUE: The patient was brought in for an exercise perfusion study on 08/07/2024. Patient performed exercise as per Matti protocol and was injected 25 mCi of sestamibi once target heart rate was achieved. Images were obtained using the SPECT gamma camera interlaced with the gating device. Images were obtained in supine position. Resting perfusion study was performed on 08/11/2024. Patient was administered 25 mCi of sestamibi intravenously at rest. Images were then obtained in supine position. Total DLP 102 mGy-cm. Images were processed with the software and compared side to side in short axis, horizontal long axis and vertical long axis views. FINDINGS: 70% during stress and Raw aquisition reviewed. The stress perfusion study showed diminished tracer uptake in the distal part of the anterior wall. With CT attenuation correction, there is improvement suggestive of soft tissue attenuation artifact. The gated study shows normal LV systolic function with calculated LVEF of 70%. LV cavity is normal in size. The gated study shows normal wall thickening and contraction of segments. Resting study shows decreased tracer uptake at the apex. There is adjacent subdiaphragmatic tracer uptake. With CT attenuation correction, overall reduced tracer uptake which is likely artifactual. This could be related to subdiaphragmatic uptake pulling counts from myocardium. Gating at rest reveals normal wall motion with ejection fraction at 59%. The findings are consistent with no clear reversible or fixed perfusion defects. NM/NM cardiolite stress test IMPRESSION: 1. Myocardial perfusion imaging study shows probably normal myocardial perfusion. 2. Gated LVEF is 70% during stress and 59% during rest. 3. Transient ischemic dilatation not present. EKG component of the test reported separately. Electronically signed by: Carlos Silverman MD 08/11/2024 12:34 PM EDT
--- NOTE | 2024-08-07 07:43 | CA_ITS ---
Acquisition Time: 2024-08-07 07:52:03 Total Exercise Time: 00:07:01 Test Indications: CHEST PAIN, ABN EKG Medications: Protocol: STERLING Max HR: 171 BPM 102% of Pred: 167 BPM Max BP: 168/070 mmHG Max Work Load: 8.5 METS Exercise stress test 7 min 1 sec of Sterling protocol achieving 102% MPHR, with mild SOB, no chest discomfort, with mild lightheadedness, with isolated PVCs, cuplet & venticular triplet, with normotensive response to exercise, without EKG changes. Nuclear images pending. Test reviewed with Dr. Ang. Referred By: Carlos Silverman Overread By: Camila Aparicio
== END ==
LOC: HO.CARD 07:39
PROVIDERS: PCP Family Medicine; Visit Provider Internal Medicine
DX: R07.2 Precordial pain (principal); I42.9 Cardiomyopathy, unspecified
CPT/HCPCS: 78452; 93017; A9500

== ENCOUNTER → 2024-08-07 07:43 | Outpatient (BNV) | payer OTHER, SELFPAY | PROVIDERS: PCP Family Medicine; Visit Provider Nurse Practitioner | DX: I42.9 Cardiomyopathy, unspecified (principal) | CPT/HCPCS: 78452; 93016; 93018 ==

== ENCOUNTER 2024-08-31 12:13 | Day surgery (SDC) | payer OTHER, SELFPAY ==
[2024-08-31 13:12] VITALS: BP 158/95; PULSE 86; RESP 16; TEMP 37.1; O2SAT 97; BMI 29.7
[2024-08-31] MEDS: Lactated Ringers 1,000 ML 80 ML IVCONT (13:30)
--- NOTE | 2024-08-31 14:44 | HO.ANESPROP2 ---
HPI - Anesthesia Eval Consult details Narrative: 54yo female patient for EGD PMFSH Active Problems Active Problems: All Active Problems Dysplasia of cervix, low grade (KEREN 1) (Acute) ASCUS with positive high risk HPV cervical (Acute) Prolonged QT interval (Acute) Cardiomyopathy (Acute) EF 48% Encounter for well woman exam with routine gynecological exam (Acute) Decreased cardiac ejection fraction (Acute) Pre-syncope (Acute) Dizziness (Acute) Breast cancer screening by mammogram (Acute) Screening for cervical cancer (Acute) Screening for colon cancer (Acute) Adult general medical exam (Acute) Cervicalgia (Acute) Lupus (systemic lupus erythematosus) (Acute) Sinus infection (Acute) Laboratory tests ordered as part of a complete physical exam (CPE) (Acute) Long-term use of hydroxychloroquine (Acute) Clicking tinnitus of left ear (Acute) Excessive daytime sleepiness (Acute) Snoring (Acute) Difficulty urinating (Acute) Restless leg syndrome (Acute) Tremor (Acute) Abnormal urinalysis (Acute) Chronic GERD (Acute) Overweight (Acute) Normal physical exam (Acute) Fatigue (Acute) Multiple sclerosis (Acute) GERD (gastroesophageal reflux disease) (Acute) Past Medical History Medical History Sessile serrated polyp of colon Multiple sclerosis GERD (gastroesophageal reflux disease) Chronic constipation Palpitations Family History Family History Mother Uterus cancer Rheumatoid arthritis Fibromyalgia CAD (coronary artery disease) Angina pectoris, unspecified Father Lupus Brain aneurysm Sister Cervical cancer Maternal Aunt Breast cancer, Onset Age: 35 Maternal Grandmother History of heart attack DM2 (diabetes mellitus, type 2) Other Mental health disorder Substance use disorder Family history of problems with anesthesia: No Surgical History Surgical History Hx of colonoscopy History of endometrial ablation History of Problems with Anesthesia: No Social History Social History Household Members: Spouse Housing: House Are you a primary workforce investment act career manager to a significant other at home: No Do you presently have visiting nurse or other home services: No Alcohol intake: never Patient Tobacco Use Status: Never used Tobacco service: No Current occupational status: employed 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 Current occupational exposures/hazards: No Sexual orientation: Straight/Heterosexual Gender identity: Female Meds Allergies Allergy/AdvReac Type Severity Reaction Status Date / Time Penicillins [PENICILLINS] Allergy Intermediate RASH Verified 07/13/24 16:11 Active Medications: Current Medications Lactated Ringer's (Lr) 1,000 mls @ 80 mls/hr IVCONT .[id number] JAYCE Last Admin: 08/31/24 13:30 Dose: 80 mls/hr Home Medications ?Medication ?Instructions ?Recorded ?Confirmed ?Last Taken ?Type ibuprofen 200 mg capsule 400 mg PO BID 03/25/23 07/01/24 Unknown History Exam Height,Weight and Vital Signs: Height 5 ft 3 in Weight 76.113 kg Last Vital Signs Temp 98.8 F 08/31/24 13:12 Pulse 86 08/31/24 13:12 Resp 16 08/31/24 13:12 BP 158/95 H 08/31/24 13:12 Pulse Ox 97 08/31/24 13:12 O2 Del Method Room Air 08/31/24 13:12 Airway Mallampati Class: II TM Dist: >3cm Neck ROM: Full Loose/Missing/Broken Teeth: No Heart: RRR Lungs: CTAB Assessment and Plan Assessment Anesthesia Assessment: Anesthesia Plan Discussed and Chart Reviewed Final Anesthetic Review Family History of Problems with Anesthesia: No History of Problems with Anesthesia: No NPO: Yes ASA Class: III Final Preanesthetic Review: No Changes in Pt Med Stat, Meds/Allgs Chart Reviewed, Consent Obtained/Reviewed and Anes Risks/Benef Reviewed Patient Risk: Intermediate Procedure Risk: Low Assessment/Block/Sedation in SS: Assess/Block/Sedation-SS Anesthetic Plan Anesthetic Plan: TIVA Disposition: Standard PACU
--- NOTE | 2024-08-31 14:49 | MHC.SHP ---
Pre-Procedural Eval Section A - 24 Hr Update-Section A only Date of Service: 08/31/24 Section B - Complete if H&P > 30 days Chief Complaint: gerd,Abdominal distension (gaseous) Relevant Family History (Specify if Yes): No Relevant Social History: None Present Medications: see Short Stay Collaborative assessment Medical History: Significant History (Multiple sclerosis GERD (gastroesophageal reflux disease) Chronic constipation Palpitations) History of Previous Operations: Relevant previous surgery/procedure and date(s) (Hx of colonoscopy History of endometrial ablation) Allergies: Allergies Allergy/AdvReac Type Severity Reaction Status Date / Time Penicillins [PENICILLINS] Allergy Intermediate RASH Verified 07/13/24 16:11 Review of Systems Sugical H&P ROS: Negative: Constitution, Cardiovascular and Respiratory and Yes, Specify: Gastrointestinal (epigastric pain) Exam Surgical H&P Exam: Normal: Heart, Normal: Lungs, Normal: Extremities and Normal: Abdomen Plan Diagnosis/Plan: Unchanged I have reviewed the history and physical and performed a pertinent physical examination on my patient. No changes have occurred unless specified. Time Spent With Patient Time: Total time managing care of this patient today ____ minutes.
--- NOTE | 2024-08-31 15:16 | P.OP_ITS ---
Operative Note Operative Note Date of Service: 08/31/24 Narrative: FLEXIBLE TRANSORAL UPPER GASTROINTESTINAL ENDOSCOPY WITH BIOPSIES Pre-op diagnosis: GERD, Epigastric pain, Post-op diagnosis: GERD, Gastritis, multiple gastric polyps Endoscopist:? Sharee Mares MD Anesthesia:?MAC UPPER ENDOSCOPY Consent: Indications for the procedure and potential complications of bleeding, perforation, reaction to medications and missed diagnosis were discussed with the patient and informed consent was obtained. Instrument: Olympus GIF H 190 mid size upper endoscope Monitoring: Vital signs and clinical assessment, continuous EKG monitoring, Pulse oximetry, Carbon Dioxide monitoring and blood pressure monitoring were done throughout the procedure. Procedure: The patient was placed in the left lateral decubitis position and pre-procedure medications were administered and a bite block was placed. The endoscope was inserted into the mouth and advanced under direct vision to the third part of duodenum. A careful inspection was made as the upper endoscope was withdrawn including a retroflexed examination of the proximal stomach; Findings and interventions are described below. Findings: Larynx: Normal Esophagus: GE junction at 36 cms. No esophagitis or Barretts Stomach: Moderate diffuse gastric erythema - biopsies were obtained from the gastric body and antrum. Multiple 5 to 10 mm benign apperaing polyps in the gastric body and fundus. Two polyps were removed with a cold snare. Grade 2 flap valve on retroflexed examination of the cardia. Duodenum: Normal bulb and descending duodenum. Biopsies were obtained from 3rd part of the duodenum to check for celiac sprue Intervention: Biopsies as noted above Impression and Post Procedure Diagnosis: Endoscopy Findings: STOMACH: Moderate diffuse gastritis and multiple gastric polyps. DUODENUM: Normal - biopsied to check for celiac sprue. Plan: Pt has a FU appointment on 09/25/24 with Maria Esther Phillips NP. Above findings were reviewed with the patient and relevant handouts were given and the discharge area. No clear etiology found for abdominal pain - consider further evaluation with abdominal ultrasound. BIOPSIES SHOWED: A. Small bowel, biopsy: Small intestinal mucosa within normal limits. B. Stomach, antrum, biopsy: Antral-type and oxyntic mucosa with mild chronic in active inflammation; no Helicobacter organisms seen. C. Stomach, polyp: Fundic gland polyp with background mild chronic inactive inflammation; no Helicobacter organisms seen. D. Stomach, body, biopsy: Oxyntic mucosa with mild chronic inactive inflammation; no Helicobacter organisms seen
[2024-08-31 15:18] VITALS: BP 115/69; PULSE 81; RESP 16; TEMP 37; O2SAT 99
[2024-08-31 15:33] VITALS: BP 117/87; PULSE 83; RESP 20; TEMP 37.2; O2SAT 97
== END 2024-08-31 15:43 | disposition home or self-care (01) ==
PROVIDERS: PCP Hospitalist; Visit Provider Internal Medicine Gastroenterology
PROC: 0DJ08ZZ Inspection of Upper Intestinal Tract, Via Natural or Artificial Opening Endoscopic (ICD-10-PCS; CPT 43235; principal; 2024-08-31 14:00)
DX: K21.9 Gastro-esophageal reflux disease without esophagitis (principal); R14.0 Abdominal distension (gaseous); R10.13 Epigastric pain; K29.50 Unspecified chronic gastritis without bleeding; K31.7 Polyp of stomach and duodenum; K59.04 Chronic idiopathic constipation; G35 Multiple sclerosis; M32.9 Systemic lupus erythematosus, unspecified; R00.2 Palpitations; E55.9 Vitamin D deficiency, unspecified; R53.83 Other fatigue; Z86.0101 Personal history of adenomatous and serrated colon polyps; Z79.899 Other long term (current) drug therapy; Z88.0 Allergy status to penicillin
CPT/HCPCS: 43239; 88305; 88313; 88342; J2003; J2704

== ENCOUNTER → 2024-08-31 12:13 | Outpatient (BNV) | payer OTHER, SELFPAY | PROVIDERS: PCP Hospitalist; Visit Provider Internal Medicine Gastroenterology | DX: K21.9 Gastro-esophageal reflux disease without esophagitis (principal); K29.70 Gastritis, unspecified, without bleeding; K31.7 Polyp of stomach and duodenum | CPT/HCPCS: 43239; 43251 ==

== ENCOUNTER 2024-09-25 14:32 | Outpatient (REF) | payer OTHER, SELFPAY | END 2024-09-25 14:33 | disposition home or self-care (01) | LOC: HO.LAB 14:32 | PROVIDERS: PCP Family Medicine; Visit Provider Student in an Organized Health Care Education/Training Program | DX: Z13.89 Encounter for screening for other disorder (principal) ==

== ENCOUNTER 2024-09-25 15:38 | Outpatient (AMB) | payer OTHER, SELFPAY ==
--- NOTE | 2024-09-25 15:55 | MHC.OFFVIS ---
Vital Signs 09/25/24 15:56 Height 5 ft 3 in Weight 159 lb 9.835 oz BMI 28.3 BP 140/94 H Blood Pressure Location Rt brachial Position Sitting Pulse 88 Pulse Source Pulse Oximeter Pulse Oximetry (%) 98 Oxygen Delivery Method Room Air Intake Visit Reasons: s/p egd Intake Note: Relevant Flags or Indicators ? Requires Agriculture Technician? N Tresa presents in office today for a scheduled s/p FUV. EGD CC; Labs were done after initial visit. Pt would like to review these. Pt denies any recent diagnostics or new meds. ? Relevant GI Sx as reported per pt? Fecal abnormalities o?? Constipation - Pt believes that this is becoming worse because they are finding that they are more dependent on their PRN meds. Bloating + mild gas related to constipation. ? Hx of any recent surgeries? EGD w/ RM Agriculture Technician Required: No Allergies Penicillins [PENICILLINS] Allergy (Intermediate, Verified 09/25/24 15:56) RASH HPI HPI s/p egd: Details: LAST VISIT: GERD (gastroesophageal reflux disease) Postprandial epigastric pain Chronic idiopathic constipation Abdominal bloating Plan Patient can stop taking omeprazole and we will start her on pantoprazole daily. Will check lipase, H pylori. Patient will need to start taking Dulcolax tablets in the evening, however patient will also start taking Colace in the morning 1-2 capsules. Patient will be sent for upper endoscopy to rule out gastritis, duodenitis, gastric or peptic ulcer, Mazariegos's, esophagitis, H pylori. Will check vitamin-D level, B12 and folate. Patient denies any issues with anesthesia in the past. No history of sleep apnea. Not on any anticoagulation medication. Patient will be seen after the procedure, sooner on as needed basis. She is agreeable to this plan and verbalizes understanding of instructions. She was given the opportunity to ask questions and all questions answered. ? Thank you for allowing me to participate in her care Orders Orders H pylori Ag Stool Today K21.9 Vitamin D 25-OH (D2 and D3) Today E55.9 Lipase Today R10.9 Vitamin B12 and Folate Today R19.7 Medications New bisacodyl (Dulcolax (bisacodyl)) 10 mg (2 x 5 mg) PO BEDTIME 180 tabs 4RF docusate sodium 100 mg PO BEDTIME 90 caps 3RF K59.00 pantoprazole take one tablet half an hour before breakfast 40 mg PO DAILY 30 tabs 2RF K21.9 Discontinued omeprazole Discontinued Reason: Doctor's Order 20 mg PO BID 180 caps 3RF UPPER ENDOSCOPY: Findings: Larynx: Normal Esophagus: GE junction at 36 cms. No esophagitis or Barretts Stomach: Moderate diffuse gastric erythema - biopsies were obtained from the gastric body and antrum. Multiple 5 to 10 mm benign apperaing polyps in the gastric body and fundus. Two polyps were removed with a cold snare. Grade 2 flap valve on retroflexed examination of the cardia. Duodenum: Normal bulb and descending duodenum. Biopsies were obtained from 3rd part of the duodenum to check for celiac sprue Intervention: Biopsies as noted above Impression and Post Procedure Diagnosis: Endoscopy Findings: STOMACH: Moderate diffuse gastritis and multiple gastric polyps. DUODENUM: Normal - biopsied to check for celiac sprue. Plan: Pt has a FU appointment on 09/25/24 with Maria Esther Phillips NP. Above findings were reviewed with the patient and relevant handouts were given and the discharge area. No clear etiology found for abdominal pain - consider further evaluation with abdominal ultrasound. BIOPSIES SHOWED: A. Small bowel, biopsy: Small intestinal mucosa within normal limits. B. Stomach, antrum, biopsy: Antral-type and oxyntic mucosa with mild chronic inactive inflammation; no Helicobacter organisms seen. C. Stomach, polyp: Fundic gland polyp with background mild chronic inactive inflammation; no Helicobacter organisms seen. D. Stomach, body, biopsy: Oxyntic mucosa with mild chronic inactive inflammation; no Helicobacter organisms seen TODAY'S VISIT: Patient is here today for follow-up. Patient reports to be feeling fairly well except for being more constipated now. Her symptoms of acid reflux have been suppressed with pantoprazole. Patient denies any nausea or vomiting. Denies any dyspepsia, dysphagia or odynophagia. Patient is trying to eat high-fiber diet and drink fluids in ordered not to be constipated. Patient denies any ill effects from anesthesia or procedure itself. Biopsies of the stomach showed chronic inactive inflammation without H pylori. No esophagitis found. Patient had colonoscopy in March of 2022, tubular adenoma found and patient was recommended to repeat colonoscopy in 5 years. [facility] Medical History Sessile serrated polyp of colon Multiple sclerosis GERD (gastroesophageal reflux disease) Chronic constipation Palpitations Surgical History Hx of colonoscopy History of endometrial ablation Family History Mother Uterus cancer Rheumatoid arthritis Fibromyalgia CAD (coronary artery disease) Angina pectoris, unspecified Father Lupus Brain aneurysm Sister Cervical cancer Maternal Aunt Breast cancer, Onset Age: 35 Maternal Grandmother History of heart attack DM2 (diabetes mellitus, type 2) Other Mental health disorder Substance use disorder Social History Household Members: Spouse Housing: House Are you a primary medicare sales representative to a significant other at home: No Do you presently have visiting nurse or other home services: No Alcohol intake: never Patient Tobacco Use Status: Never used Tobacco service: No Current occupational status: employed 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 Current occupational exposures/hazards: No Sexual orientation: Straight/Heterosexual Gender identity: Female Review of Systems Const Denies weight gain and Denies weight loss ENT Reports no additional complaints, Denies dysphagia and Denies odynophagia Card Reports no additional complaints Resp Reports no additional complaints GI Denies abdominal pain, Denies belching, Denies melena, Reports bloating, Denies change in bowel habits, Reports constipation, Denies dysphagia, Denies excessive flatus, Denies dyspepsia, Reports heartburn, Denies diarrhea, Denies loose stools, Denies nausea, Denies odynophagia and Denies vomiting Reports no additional complaints Musc Reports no additional complaints Neuro Reports no additional complaints Psych Reports no additional complaints Endo Reports no additional complaints Physical Exam Vital Signs: Last Vital Signs Pulse 88 09/25/24 15:56 BP 140/94 H 09/25/24 15:56 Pulse Ox 98 09/25/24 15:56 Oxygen Delivery Method Room Air 09/25/24 15:56 BMI result Body Mass Index 28.3 Const General: healthy appearing and no acute distress Nutritional Appearance: obese Orientation/consciousness: patient oriented x3 Resp Effort & Inspection: normal respiratory effort, able to speak in complete sentences, no tracheal deviation and symmetric chest movement Auscultation: clear to auscultation bilaterally Cardio Rate: regular rate GI Inspection: Yes normal to inspection, No distended and Yes obesity Palpation (GI): Soft to palpation, not firm, nontender and No hepatosplenomegaly present Auscultation: normal bowel sounds General: Yes no CVA tenderness Back/Spine/Pelvis Back: no CVA tenderness Skin General skin exam: elasticity normal, turgor normal and dry skin Neuro General: patient oriented x3 Psych Appearance: grossly normal Mental Status: mental status grossly normal Assessment & Plan Assessment & Plan (1) GERD (gastroesophageal reflux disease): Code(s): K21.9 - Gastro-esophageal reflux disease without esophagitis Category: Medical Qualifiers: Esophagitis presence: esophagitis presence not specified Qualified Code(s): K21.9 - Gastro-esophageal reflux disease without esophagitis (2) Postprandial epigastric pain: Code(s): R10.13 - Epigastric pain (3) Chronic idiopathic constipation: Code(s): K59.04 - Chronic idiopathic constipation (4) Abdominal bloating: Code(s): R14.0 - Abdominal distension (gaseous) Plan Patient will continue taking pantoprazole. Avoid dietary triggers and late night snacking. Staying upright for minimum 3 hours after meals discussed with patient. Increase fluid intake and activity to promote better bowel motility. Patient will try [id number] fiber with probiotics. Patient can continue taking magnesium oxide at bedtime. Follow-up in 3 months, sooner on as needed basis. She is agreeable to this plan and verbalizes understanding of instructions. She was given the opportunity to ask questions and all questions answered. Thank you for allowing me to participate in her care Coding Level of Care Code Est Pt Level 4 (34526) Diagnoses Gastroesophageal reflux disease, unspecified whether esophagitis present K21.9 Esophagitis presence: esophagitis presence not specified Postprandial epigastric pain R10.13 Chronic idiopathic constipation K59.04 Abdominal bloating R14.0 Time Spent (min) 35 Comment 20 minutes spent with patient and additional 15 minutes spent reviewing her records
[2024-09-25 15:56] VITALS: BP 140/94; PULSE 88; O2SAT 98; BMI 28.3
== END 2024-09-25 16:24 | disposition home or self-care (01) ==
PROVIDERS: PCP Hospitalist; Visit Provider Nurse Practitioner Family
DX: K21.9 Gastro-esophageal reflux disease without esophagitis (principal); R10.13 Epigastric pain; K59.04 Chronic idiopathic constipation; R14.0 Abdominal distension (gaseous)
CPT/HCPCS: 99214

== ENCOUNTER 2024-11-19 14:58 | Outpatient (AMB) | payer OTHER, SELFPAY ==
[2024-11-19 15:15] VITALS: BP 110/70; PULSE 98; BMI 28.8
--- NOTE | 2024-11-19 15:15 | MHC.OFFVIS ---
Vital Signs 11/19/24 15:15 Height 5 ft 3 in Weight 162 lb 11.218 oz BMI 28.8 BP 110/70 Blood Pressure Location Lt brachial Position Sitting Pulse 98 Pulse Source Pulse Oximeter Intake Visit Reasons: 3 mth fu (rs from 10/06) Construction Engineering Manager Required: No Accompanied by: Self / Same As Patient Allergies Penicillins [PENICILLINS] Allergy (Intermediate, Verified 09/25/24 15:56) RASH Medication List - Last Reconciled 11/19/24 by Carlos Silverman MD bisacodyl (Dulcolax (bisacodyl)) 10 mg (2 x 5 mg) PO BEDTIME diroximel fumarate (Vumerity) 462 mg (2 x 231 mg) PO BID 30 days docusate sodium 100 mg PO BEDTIME fluticasone propionate 50 mcg/actuation (Flonase Allergy Relief) 1 spray intranasal Q12H 30 days gabapentin 200 mg (2 x 100 mg) PO BEDTIME 90 days hydroxychloroquine Take 1 tab twice daily x4 days a week and 1 tab daily x3 days a week ibuprofen 400 mg PO BID magnesium oxide 400 mg PO BEDTIME 30 days pantoprazole 40 mg PO QAM HPI Comments Details: Tresa returns for follow-up. Seen in consultation few months back. To recall- she had brought a summary sheet of prior cardiac issues. Apparently in 2005, she was having palpitations and fainted at work. She underwent workup including echocardiogram, stress test, tilt-table and found to have frequent PACs and PVCs. Then put on atenolol. She is also under treatment by rheumatology for connective tissue disease. In 2013 she again had fainting episode and chest pain. Thought to have persistent tachycardia and suspected stress-induced. Then was continued on atenolol. In 2015 she apparently stopped it as she was without health insurance. Starting 2019, she has been doing a lot of walking, several miles a day. Over the last couple of years, she has been having symptoms of generalized fatigue and exhaustion. Not much of energy. Some palpitations. When she is bending down, she can get lightheaded. No sensation of room spinning. No syncope. No angina or shortness of breath. She would like to get checked out. She has undergone an echocardiogram/stress test. [facility] Medical History Sessile serrated polyp of colon Multiple sclerosis GERD (gastroesophageal reflux disease) Chronic constipation Palpitations Surgical History Hx of colonoscopy History of endometrial ablation Family History Mother Uterus cancer Rheumatoid arthritis Fibromyalgia CAD (coronary artery disease) Angina pectoris, unspecified Father Lupus Brain aneurysm Sister Cervical cancer Maternal Aunt Breast cancer, Onset Age: 35 Maternal Grandmother History of heart attack DM2 (diabetes mellitus, type 2) Other Mental health disorder Substance use disorder Social History Household Members: Spouse Housing: House Are you a primary care provider to a significant other at home: No Do you presently have visiting nurse or other home services: No Alcohol intake: never Patient Tobacco Use Status: Never used Tobacco service: No Current occupational status: employed 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 Current occupational exposures/hazards: No Sexual orientation: Straight/Heterosexual Gender identity: Female Review of Systems Const Denies chills, Denies fatigue, Denies fever(s), Denies frequent falls, Denies weakness, Denies weight gain and Denies weight loss ENT Denies dizziness Card Denies chest pain, Denies leg edema, Denies lightheadedness, Denies palpitations, Denies dyspnea and Denies dyspnea on exertion Resp Denies cough, Denies dyspnea and Denies dyspnea on exertion GI Denies hematochezia Musc Denies abnormal gait, Denies muscle weakness, Denies numbness, Denies radiating pain into limb and Denies tingling Neuro Denies abnormal gait, Denies dizziness, Denies frequent falls, Denies numbness, Denies tingling and Denies weakness Endo Denies fatigue and Denies palpitations Physical Exam Vital Signs: Last Vital Signs Pulse 98 11/19/24 15:15 BP 110/70 11/19/24 15:15 BMI result Body Mass Index 28.8 Const General: comfortable and no acute distress Orientation/consciousness: patient oriented x3 HEENT Other: Unremarkable Head: Yes normal to inspection Neck Neck: Yes normal visual inspection Chest Chest palpation & inspection: normal inspection of the chest Resp Auscultation: clear to auscultation bilaterally Cardio Palpation: normal PMI Heart sounds: S1 normal heart sound present, S2 normal heart sound present, no gallops, no murmurs and no rubs GI Palpation (GI): Soft to palpation Back/Spine/Pelvis Other: unremarkable Skin General skin exam: no rashes or lesions noted Neuro General: patient oriented x3 Extrem General: Yes normal to inspection Psych Mental Status: mental status grossly normal Assessment & Plan Assessment & Plan (1) Cardiomyopathy: Code(s): I42.9 - Cardiomyopathy, unspecified Category: Medical Plan: In the echocardiogram, LVEF is 48%. Mild mitral leaflet thickening with mild regurgitation. Otherwise unremarkable. In the exercise stress test, she was able to exercise for 7 minutes on Matti protocol, reached 8.5 METS and reached target heart rate. No angina. Mild lightheadedness. No EKG evidence of ischemia. Perfusion imaging was unremarkable. Mild cardiomyopathy of uncertain etiology. No specific management. We will recheck echocardiogram in 1 year. Advised her to contact us if any concerns. Orders: Orders CA echo transthoracic complete 1 Year I42.9 - Cardiomyopathy, unspecified Coding Level of Care Code Est Pt Level 3 (45176) Diagnoses Cardiomyopathy I42.9
== END 2024-11-19 15:41 | disposition home or self-care (01) ==
PROVIDERS: PCP Family Medicine; Visit Provider Internal Medicine
DX: I42.9 Cardiomyopathy, unspecified (principal)
CPT/HCPCS: 99213

== ENCOUNTER 2024-12-25 15:49 | Outpatient (AMB) | payer OTHER, SELFPAY ==
--- NOTE | 2024-12-25 15:58 | A.OFFVIS_ITS ---
Vital Signs 12/25/24 16:10 Height 5 ft 3 in Weight 164 lb 14.492 oz BMI 29.2 BP 158/88 H Blood Pressure Location Rt brachial Position Sitting Pulse 86 Pulse Source Pulse Oximeter Pulse Oximetry (%) 98 Oxygen Delivery Method Room Air Intake Visit Reasons: 3 month follow up Intake Note: ESTABLISHED PATIENT for GERD + abd dist. mgmt. Chief Complaint; C/O worsening fecal abn. Pt reports new onset of sudden urgency, loose stools and intermittent diarrhea. Pt denies any changes to diet or lifestyle, still taking probiotic and fiber suppl. as instructed. Pt reports that reflux has improved. Still dealing with occasional bloating but not as badly as last appt. Denies any additional concerns. Steamfitter Required: No Accompanied by: Self / Same As Patient Allergies Penicillins [PENICILLINS] Allergy (Intermediate, Verified 12/31/24 08:05) RASH HPI HPI 3 month follow up : Details: LAST VISIT: GERD (gastroesophageal reflux disease) Postprandial epigastric pain Chronic idiopathic constipation Abdominal bloating Plan Patient will continue taking pantoprazole. Avoid dietary triggers and late night snacking. Staying upright for minimum 3 hours after meals discussed with patient. Increase fluid intake and activity to promote better bowel motility. Patient will try [id number] fiber with probiotics. Patient can continue taking magnesium oxide at bedtime. Follow-up in 3 months, sooner on as needed basis. She is agreeable to this plan and verbalizes understanding of instructions. She was given the opportunity to ask questions and all questions answered. TODAY'S VISIT Patient is here today for follow-up. Patient reports that she is doing fairly well, however she noticed increase stool frequency and more diarrhea than normal. Patient does admit that she is taking magnesium oxide that could be the culprit and also not enough fiber. Patient does report that she is taking fiber supplements in addition to eating food high in fiber. Patient denies any melena, hematochezia, unintentional weight loss or ribbon like stools. Patient does report occasional abdominal bloating. She tries to follow FODMAP diet admits that sometimes it is hard. Patient denies dyspepsia, dysphagia or odynophagia. Reports the pantoprazole and has been working for her. Acid reflux has been suppressed. Avoiding some dietary triggers which helps as well. [facility] Medical History Sessile serrated polyp of colon Multiple sclerosis GERD (gastroesophageal reflux disease) Chronic constipation Palpitations Surgical History Hx of colonoscopy History of endometrial ablation Family History Mother Uterus cancer Rheumatoid arthritis Fibromyalgia CAD (coronary artery disease) Angina pectoris, unspecified Father Lupus Brain aneurysm Sister Cervical cancer Maternal Aunt Breast cancer, Onset Age: 35 Maternal Grandmother History of heart attack DM2 (diabetes mellitus, type 2) Other Mental health disorder Substance use disorder Social History Household Members: Spouse Housing: House Are you a primary rn care transition to a significant other at home: No Do you presently have visiting nurse or other home services: No Alcohol intake: never Patient Tobacco Use Status: Never used Tobacco service: No Current occupational status: employed Current occupation: [employer] Current occupational exposures/hazards: No Sexual orientation: Straight/Heterosexual Gender identity: Female Physical Exam Vital Signs: Last Vital Signs Pulse 86 12/25/24 16:10 BP 158/88 H 12/25/24 16:10 Pulse Ox 98 12/25/24 16:10 Oxygen Delivery Method Room Air 12/25/24 16:10 BMI result Body Mass Index 29.2 Const General: healthy appearing and no acute distress Nutritional Appearance: obese Orientation/consciousness: patient oriented x3 Resp Effort & Inspection: normal respiratory effort, able to speak in complete sentences, no tracheal deviation and symmetric chest movement Auscultation: clear to auscultation bilaterally Cardio Rate: regular rate GI Inspection: Yes normal to inspection, No distended and Yes obesity Palpation (GI): Soft to palpation, not firm, nontender and No hepatosplenomegaly present Auscultation: normal bowel sounds General: Yes no CVA tenderness Back/Spine/Pelvis Back: no CVA tenderness Skin General skin exam: elasticity normal, turgor normal and dry skin Neuro General: patient oriented x3 Psych Appearance: grossly normal Mental Status: mental status grossly normal Assessment & Plan Assessment & Plan (1) GERD (gastroesophageal reflux disease): Code(s): K21.9 - Gastro-esophageal reflux disease without esophagitis Category: Medical Qualifiers: Esophagitis presence: esophagitis presence not specified Qualified Code(s): K21.9 - Gastro-esophageal reflux disease without esophagitis (2) Postprandial epigastric pain: Code(s): R10.13 - Epigastric pain (3) Chronic idiopathic constipation: Code(s): K59.04 - Chronic idiopathic constipation (4) Abdominal bloating: Code(s): R14.0 - Abdominal distension (gaseous) (5) Postprandial diarrhea: Code(s): K52.9 - Noninfective gastroenteritis and colitis, unspecified Plan Possible that culprit could be the magnesium, however patient can stop taking it for couple days and see if that is going to make a difference. Continue high-fiber therapy. Continue avoiding food. No FODMAP diet as recommended in the past. Avoid dietary triggers to help with reflux. Continue pantoprazole daily. Avoid late night snacking. Staying upright for minimal 3 hours after meals discussed with patient. Follow-up in 6 months, sooner on as needed basis. Patient is agreeable to this plan and verbalizes understanding of instructions. She was given the opportunity to ask questions and all questions answered. Thank you for allowing me to participate in her care Coding Level of Care Code Est Pt Level 4 (39723) Complex EM visit Add On G2211 Diagnoses Gastroesophageal reflux disease, unspecified whether esophagitis present K21.9 Esophagitis presence: esophagitis presence not specified Postprandial epigastric pain R10.13 Chronic idiopathic constipation K59.04 Abdominal bloating R14.0 Postprandial diarrhea K52.9 Time Spent (min) 35 Comment 25 minute spent with patient and additional 10 minute spent reviewing her records
[2024-12-25 16:10] VITALS: BP 158/88; PULSE 86; O2SAT 98; BMI 29.2
== END 2024-12-25 16:37 | disposition home or self-care (01) ==
PROVIDERS: PCP Family Medicine; Visit Provider Nurse Practitioner Family
DX: K21.9 Gastro-esophageal reflux disease without esophagitis (principal); R10.13 Epigastric pain; K59.04 Chronic idiopathic constipation; R14.0 Abdominal distension (gaseous); K52.9 Noninfective gastroenteritis and colitis, unspecified
CPT/HCPCS: 99214

== ENCOUNTER → 2024-12-25 15:49 | Outpatient (BNVA) | payer OTHER, SELFPAY | PROVIDERS: PCP Family Medicine; Visit Provider Nurse Practitioner Family ==

== ENCOUNTER 2024-12-31 07:56 | Outpatient (AMB) | payer OTHER, SELFPAY ==
[2024-12-31 08:02] VITALS: BP 130/110; PULSE 87; O2SAT 99; BMI 28.7
--- NOTE | 2024-12-31 08:02 | A.OFFVIS_ITS ---
Vital Signs 12/31/24 08:02 Height 5 ft 3 in Weight 162 lb BMI 28.7 BP 130/110 H Blood Pressure Location Lt brachial Position Sitting Pulse 87 Pulse Source Pulse Oximeter Pulse Oximetry (%) 99 Oxygen Delivery Method Room Air Intake Visit Reasons: 3 month F/U Intake Note: Patient presents follow up MS. MRI in chart Senior Research Manager Required: No Accompanied by: Self / Same As Patient Allergies Penicillins [PENICILLINS] Allergy (Intermediate, Verified 12/31/24 08:05) RASH Medication List - Last Reconciled 12/31/24 by BEBETO Howard bisacodyl (Dulcolax (bisacodyl)) 10 mg (2 x 5 mg) PO BEDTIME diroximel fumarate (Vumerity) 462 mg (2 x 231 mg) PO BID 30 days docusate sodium 100 mg PO BEDTIME fluticasone propionate 50 mcg/actuation (Flonase Allergy Relief) 1 spray intranasal Q12H 30 days gabapentin 200 mg (2 x 100 mg) PO BEDTIME 90 days hydroxychloroquine Take 1 tab twice daily x4 days a week and 1 tab daily x3 days a week ibuprofen 400 mg PO BID magnesium oxide 400 mg PO BEDTIME 30 days pantoprazole 40 mg PO QAM HPI Comments Details: The patient is a 54-year-old female presenting with management of Multiple Sclerosis. MS symptoms remain mild without relapse. Interval, May 2024 brain MRI with/without contrast was stable. 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 Access to Vumerity has been problematic since transitioning to [employer] insurance, involving recurrent refill delays due to insurance holds. Dizziness, often related to bending, persists but is considered benign by the patient. She is f/b cardiology- scheduled for 1 yr f/u echo. She dehydrates easily in heat despite adequate fluid intake, possibly connected to low blood pressure. Gabapentin effectively manages restless legs syndrome. An upper endoscopy was clear despite upper GI symptoms attributed to constipation. Urinary symptoms persist alongside constipation. [facility] Medical History Sessile serrated polyp of colon Multiple sclerosis GERD (gastroesophageal reflux disease) Chronic constipation Palpitations Surgical History Hx of colonoscopy History of endometrial ablation Family History Mother Uterus cancer Rheumatoid arthritis Fibromyalgia CAD (coronary artery disease) Angina pectoris, unspecified Father Lupus Brain aneurysm Sister Cervical cancer Maternal Aunt Breast cancer, Onset Age: 35 Maternal Grandmother History of heart attack DM2 (diabetes mellitus, type 2) Other Mental health disorder Substance use disorder Social History Household Members: Spouse Housing: House Are you a primary intensive care ambulance paramedic to a significant other at home: No Do you presently have visiting nurse or other home services: No Alcohol intake: never Patient Tobacco Use Status: Never used Tobacco service: No Current occupational status: employed 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 Current occupational exposures/hazards: No Sexual orientation: Straight/Heterosexual Gender identity: Female Physical Exam Vital Signs: Last Vital Signs Pulse 87 12/31/24 08:02 BP 130/110 H 12/31/24 08:02 Pulse Ox 99 12/31/24 08:02 Oxygen Delivery Method Room Air 12/31/24 08:02 BMI result Body Mass Index 28.7 Const General: cooperative and no acute distress Orientation/consciousness: patient oriented x3 Resp Effort & Inspection: normal respiratory effort and able to speak in complete sentences Neuro Other: Negative bilateral she she Jen General: patient oriented x3 and deep tendon reflexes 2+ bilaterally Cranial nerves: Yes CN's II-XII intact bilaterally Cognition (Neuro): normal cognition Gait exam (Neuro): Normal gait present Psych Appearance: grossly normal Mental Status: mental status grossly normal Speech and movement: Normal speech and movement present Affect: normal affect Attitude: cooperative Results Reviewed Results Reviewed: 05/12/2024, MR/MR head/brain wo/w con IMPRESSION: 1. Unchanged bilateral multiple frontal and parietal multiple demyelinating lesions consistent with known history of multiple sclerosis. There is no interval change in size of the largest right mid osei radiata lesion with positive black hole sign, consistent with irreversible axonal damage. 2. No acute cerebral infarction is seen. 3. No evidence of space occupying mass lesion or enhancing acutely demyelinating lesion could be found. 4. No evidence of intracranial hemorrhage. Assessment & Plan Assessment & Plan (1) Multiple sclerosis: Code(s): G35 - Multiple sclerosis Category: Medical (2) Restless leg syndrome: Comment: Failed ropinirole: Caused compulsive behaviors. Code(s): G25.81 - Restless legs syndrome Category: Medical Plan I discussed the importance of resuming regular blood work for comprehensive MS a nd SLE monitoring. Emphasized maintaining access to Vumerity despite ongoing insurance complications. Considered insurance issues, potential changes to copay arrangements, and explored involving [employer] assistance programs. Reviewed the continuation of gabapentin for restless legs management. Advised hydration strategies to mitigate dehydration, especially when traveling or in hot weather. Discussed ongoing management of urinary and constipation symptoms through dietary measures. I advised reaching out through the portal for ongoing issues, reserving urgency for critical problems. For MS: - Complete blood tests as ordered. - Reach out for potential follow-up with rheumatology based on test results. - Continue Vumerity; address insurance issues persistently if challenges arise. - Reviewed brain w/wo- stable - Will plan for follow-up brain MRI in summer. - Maintain adequate hydration and monitor electrolyte balance, especially in hot weather. - Follow a low FODMAP diet and monitor for any changes in urinary symptoms. - follow-up with GI as scheduled - monitor dizziness. Follow-up with cardiology as scheduled. For restless leg syndrome: Continue gabapentin 200 mg q.h.s. Previous trials: Ropinirole caused compulsive behaviors. ? For cervicalgia: Continue PT stretches Magnesium 400mg qhs. Future consideration- Baclofen, Flexeril- low dose as pt is sensitive to sedating medications. Patient was informed and verbally consented to the use of an ambient scribe for clinic note documentation during this visit. ? Follow-up in 6 months or sooner p.r.n. Medications: Changed From magnesium oxide may hold for loose stools 400 mg PO BEDTIME 30 days 30 tabs 6RF To magnesium oxide may hold for loose stools 400 mg PO BEDTIME 90 days 90 tabs 3RF Refilled gabapentin for restless legs 200 mg (2 x 100 mg) PO BEDTIME 90 days 180 caps 1RF Coding Level of Care Code Est Pt Level 4 (69588) Diagnoses Multiple sclerosis G35 Restless leg syndrome G25.81
== END 2024-12-31 08:32 | disposition home or self-care (01) ==
PROVIDERS: PCP Hospitalist; Visit Provider Nurse Practitioner Family
DX: G35 Multiple sclerosis (principal); G25.81 Restless legs syndrome
CPT/HCPCS: 99214

== ENCOUNTER 2025-01-15 13:08 | Outpatient (REF) | payer OTHER, SELFPAY ==
[2025-01-15 13:19] LABS: MANUAL DIFF FLAG NO
[2025-01-15 14:24] LABS: Appearance Urine Clear; Color Urine Yellow; Glucose Urine UA Negative (Negative); Leukocyte Esterase Urine Moderate (2+) (Negative); Nitrite Urine Negative (Negative); Specific Gravity - Urine <= 1.005 (1.005-1.025); UMIC TRIGGER UA YES; Urine Blood Negative (Negative); Urine Ketones Negative (Negative); Urine Protein Negative (Neg-Trace)
[2025-01-15 14:25] LABS: Basophils Absolute Auto 0.1 X10*3/uL (0.0-0.2); Basophils Percent Auto 1.1 % (0-2); Eosinophils Absolute Auto 0.1 X10*3/uL (0.0-0.4); Eosinophils Percent Auto 1.5 % (0-4); Hematocrit 43.2 % (37.0-47.0); Hemoglobin 14.8 g/dl (12.0-16.0); Imm Gran Abs Auto 0.01 X10*3/uL (0.00-0.03); Imm Gran Pct Auto 0.2 % (0.0-0.4); Lymphocytes Absolute Auto 1.2 X10*3/uL (1.2-4.9); Lymphocytes Percent Auto 19.5 % (20-40); Mean Corpuscular HGB Conc 34.3 g/dl (31.0-35.0); Mean Corpuscular Hemoglobin 30.1 pg (27.0-33.0); Mean Corpuscular Volume 87.8 fL (80.0-98.0); Mean Platelet Volume 10.5 fL (9.4-12.3); Monocytes Absolute Auto 0.5 X10*3/uL (0.1-1.2); Monocytes Percent Auto 7.4 % (2-11); Neutrophils Absolute Auto 4.3 x10*3/uL (2.0-8.3); Neutrophils Percent Auto 70.3 % (45-73); Platelet Count 267 X10*3/uL (160-400); Red Blood Count 4.92 X10*6/uL (4.20-5.50); Red Cell Distribution Width 13.3 % (11.0-16.0); White Blood Count 6.1 X10*3/uL (4.8-10.8)
[2025-01-15 14:29] LABS: Bacteria Urine None Seen (None Seen); Hyaline Casts Urine 0-2 /LPF (0-2); RBC Urine 0-2 /HPF (0-2); Squamous Epithelial Cell Urine 0-2 /HPF (0-2)
--- OUTSIDE RECORDS SUMMARY | 2025-01-15 14:40 | XMS_ITS | Clinical Summary ---
Author Organization [facility] Address [address] [address] Phone Care Team Providers Care Lockstitch Front Edge Tape Sewer Name Role Phone Pcp, Unknown Primary Care Provider Unavailabl e Social History Tobacco Use Types Packs/Day Years Used Date Smoking Tobacco: Never Assessed Education Answer Date Recorded Are you interested in more education? Not on yahir e 03/17/2023 Are you concerned about learning? Not on file 03/17/2023 No 03/17/2023 No 03/17/2023 Digital Access Answer Date Recorded No 03/31/2023 No 03/31/2023 No 03/31/2023 Reliable internet access at home? Not on file 03/31/2023 Device with a working camera? Not on file Sex and Gender Information Value Date Recorded Sex Assigned at Not on file Gender Identity Not on file Sexual Orientation Not on file Last Filed Vital Signs Vital Sign Reading Time Taken Comments Blood Pressure 104/70 10/19/2011 10:28 AM EST Pulse - - Temperature - - Respiratory Rate - - Oxygen Saturation - - Inhaled Oxygen Concentration - - Weight 62.6 kg (138 lb) 10/19/2011 10:28 AM EST Height 160 cm (5' 3 ) 10/19/2011 10:28 AM EST Body Mass Index 24.45 10/19/2011 10:28 AM EST Plan of Treatment Not on file Medical Devices Not on file Care Teams Lockstitch Front Edge Tape Sewer Relationship Specialty Start Date End Date Pcp, Unknown PCP - General 08/03/21 Additional Source Comments The information contained in this document represents components of the legal health record. It is not the complete legal health record.[facility]
[2025-01-15 14:46] LABS: Alanine Aminotransferase 21 U/L (0-31); Albumin Level 4.4 g/dL (3.5-5.0); Alkaline Phosphatase 70 U/L (39-117); Anion Gap 14 (12-20); Aspartate Amino Transferase 25 U/L (5-31); Bilirubin Total 0.6 mg/dL (0.0-1.0); Blood Urea Nitrogen 15 mg/dL (9-16); C Reactive Protein 0.26 mg/dL (< or = 0.50); Calcium 9.6 mg/dL (8.4-10.2); Carbon Dioxide 24 mmol/L (22-29); Chloride 106 mmol/L (96-108); Estimated Glomerular Filt Rate > 60; Glucose Random 87 mg/dL (60-115); Potassium 3.7 mmol/L (3.3-5.1); Sodium 140 mmol/L (135-145); Total Protein 7.9 g/dL (6.5-8.0)
[2025-01-15 14:49] LABS: Creatinine Urine 18.39 mg/dL; Total Protein Urine Random < 7 mg/dL (<12)
[2025-01-15 15:09] LABS: Erythrocyte Sedimentation Rate 13 MM/HR (0-20)
[2025-01-18 11:39] LABS: Complement C3 164 mg/dL (83-193)
[2025-01-18 23:04] LABS: Anti DNA DS Antibody <1 IU/mL
== END 2025-01-15 13:09 | disposition home or self-care (01) ==
LOC: HO.LAB 13:08
PROVIDERS: PCP Family Medicine; Visit Provider Student in an Organized Health Care Education/Training Program
DX: M32.19 Other organ or system involvement in systemic lupus erythematosus (principal)
CPT/HCPCS: 36415; 80053; 81001; 82570; 84156; 85025; 85652; 86140; 86160; 86225

== ENCOUNTER 2025-05-25 08:58 | Outpatient (AMB) | payer OTHER, SELFPAY ==
--- NOTE | 2025-05-25 08:59 | MHC.OFFVIS ---
Vital Signs 05/25/25 09:04 Height 5 ft 3 in Weight 152 lb 8.958 oz BMI 27.0 BP 140/90 H Blood Pressure Location Lt brachial Position Sitting Pulse 98 Pulse Source Pulse Oximeter Pulse Oximetry (%) 99 Oxygen Delivery Method Room Air Intake Visit Reasons: SLE Intake Note: Patient presents for SLE follow up. Allergies Penicillins (PENICILLINS) Allergy (Intermediate, Verified 05/25/25 09:03) RASH Medication List - Last Reconciled 05/25/25 by Lyudmila Zavala MD bisacodyl (Dulcolax (bisacodyl)) 10 mg (2 x 5 mg) PO BEDTIME diroximel fumarate (Vumerity) 462 mg (2 x 231 mg) PO BID 30 days docusate sodium 100 mg PO BEDTIME fluticasone propionate 50 mcg/actuation (Flonase Allergy Relief) 1 spray intranasal Q12H 30 days gabapentin 200 mg (2 x 100 mg) PO BEDTIME 90 days hydroxychloroquine Take 1 tab twice daily x4 days a week and 1 tab daily x3 days a week ibuprofen 400 mg PO BID magnesium oxide 400 mg PO BEDTIME 90 days pantoprazole 40 mg PO QAM HPI Comments Details: Patient is a 55-year-old female with GERD, mild cardiomyopathy of undetermined etiology, prolonged QT interval, restless legs syndrome, multiple sclerosis and undifferentiated connective tissue disease here today for follow up Interval History: Patient last seen 06/17/[address] Campbell - Feels well - No complaints - No recent fevers, unintentional weight loss, skin rashes or swollen joints Today, - Currently following with cardiology evaluating lightheadedness and dizziness - No worsening rash, joint pain and fatigue Rheumatologic History: Lupus vs UCTD (+ SHARA, negative SIMONA panel and normal complement, painless oral ulcers, multiple sclerosis, fatigue, generalized pain) dx 2006 was on HCQ for about 9 years with improvement Hydroxychloroquine restarted on11/26 with significant improvement Initial history: This is a 52-year-old female who presents for evaluation of a positive SHARA. Patient stated that since her teens she has had intermittent pain and fatigue. 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 She was started on Plaquenil and she took it for about 6 years which significantly controlled her pain and fatigue. In 2019 she developed left footdrop and was eventually diagnosed with MS. She is following up with Neurology and her MS is currently well controlled. Currently her main complaint is generalized fatigue. She is unable to exercise. She has been taking plenty of NSAIDs. She has some pain in some areas when touched especially in her lower back as well as pain on the outside of her hips and the inside of her knees. She also has been having ringing in her left ear. She is due to see ENT soon. Her mother was diagnosed with rheumatoid arthritis and her father had lupus manifested by skin rashes. Current Rheumatology Medication(s): Plaquenil 200mg bid x 4 days and 200mg daily x 3 days [facility] Medical History (Updated 05/25/25 @ 09:15 by Lyudmila Zavala MD) Undifferentiated connective tissue disease Sessile serrated polyp of colon Multiple sclerosis GERD (gastroesophageal reflux disease) Chronic constipation Palpitations Surgical History Hx of colonoscopy History of endometrial ablation Family History Mother Uterus cancer Rheumatoid arthritis Fibromyalgia CAD (coronary artery disease) Angina pectoris, unspecified Father Lupus Brain aneurysm Sister Cervical cancer Maternal Aunt Breast cancer, Onset Age: 35 Maternal Grandmother History of heart attack DM2 (diabetes mellitus, type 2) Other Mental health disorder Substance use disorder Social History Household Members: Spouse Housing: House Are you a primary child care coordinator to a significant other at home: No Do you presently have visiting nurse or other home services: No Alcohol intake: never Patient Tobacco Use Status: Never used Tobacco service: No Current occupational status: employed Current occupation: [employer] [place] Current occupational exposures/hazards: No Sexual orientation: Straight/Heterosexual Gender identity: Female Review of Systems Const Details: Review of Systems Constitutional: Denies fever, chills, weight loss ENT: Denies vision changes, eye pain or eye redness, dental caries, dry mouth GI: Denies nausea, vomiting, diarrhea, abdominal pain, change in BM Pulm: Denies SOB, RAMIREZ, hemoptysis, wheezing Cards: Denies chest pain, palpitations Skin: Denies Raynaud's, rash, nail changes, photosensitivity, 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 Well appearing and in no apparent painful distress HEENT Conjunctiva and sclera clear. No lymphadenopathy. CHEST/RESPIRATORY SYSTEM Normal respiratory effort and able to speak in complete sentences. Clear to auscultation bilaterally. No crackles, rales, rhonchi, wheezes heard. CARDIAC SYSTEM Regular rate and rhythm. S1 and S2 heard no murmurs. Radial pulses intact bilaterally MSK Hands Right Hand: Able to make a fist. No swelling or tenderness to palpation of these joints. No deformities noted. Left Hand: Able to make a fist. No swelling or tenderness to palpation of these joints. No deformities noted. Wrists Right Wrist: Full ROM. 70 degrees of wrist flexion, 80 degrees of wrist extension. No swelling or TTP Left Wrist: Full ROM. 70 degrees of wrist flexion, 80 degrees of wrist extension. No swelling or TTP Elbows Right Elbow: Full ROM. No swelling or TTP. No TTP of the medial and lateral epicondyles Left Elbow: Full ROM. No swelling or TTP. No TTP of the medial and lateral epicondyles Shoulders Right shoulder: Full ROM. No swelling noted. No TTP of the AC joint, subacromial bursa or posterior shoulder Left shoulder: Full ROM. No swelling noted. No TTP of the AC joint, subacromial bursa or posterior shoulder Knees Right knee: Full ROM. No swelling noted. No TTP of the knee joint lie or pes anserine bursa Left knee: Full ROM. No swelling noted. No TTP of the knee joint lie or pes anserine bursa. Crepitations felt bilaterally Ankles Right ankle: Good ankle dorsiflexion and plantar flexion. No swelling. No TTP of the ankle joint Left ankle: Good ankle dorsiflexion and plantar flexion. No swelling. No TTP of the ankle joint Feet Right foot: Negative squeeze test Left foot: Negative squeeze test Tender points? No tenderness to palpation of the bilateral trapezius, supraspinatus, anterior costochondral junctions, bilateral suboccipital muscle insertions SKIN No rashes Vital Signs: BMI result Body Mass Index 27.0 Results Reviewed Results Reviewed: Laboratory Tests 04/02/24 01/15/25 11:44 13:17 WBC 6.1 RBC 4.92 Hgb 14.8 Hct 43.2 Plt Count 267 ESR 13 Sodium 140 Potassium 3.7 Chloride 106 Carbon Dioxide 24 BUN 15 Creatinine 0.71 AST 25 ALT 21 C-Reactive Protein 0.26 25-OH Vitamin D Total 25 L Rheumatology Labs 01/15/25 13:17 Double Strand DNA Ab <1 Complement C3 164 Complement C4 27 Assessment & Plan Assessment & Plan (1) Undifferentiated connective tissue disease: Comment: vs UCTD (+ SHARA, painless oral ulcers, multiple sclerosis, fatigue, generalized pain) dx 2006 was on HCQ for about 9 years with improvement Hydroxychloroquine restarted on11/26 with significant improvement Code(s): M35.9 - Systemic involvement of connective tissue, unspecified Category: Medical Plan: #UCTD Patient is a 55 y.o. female with UCTD here today for follow up Doing well. Exam and labs unremarkable Currently having some cardiac evaluation and was noted to have a prolonged QT and global hypokinesis. Given the prolonged use of hydroxychloroquine I discussed with the patient that there is a possibility for plaquenil to cause a prolonged QT and also cause cardiac issues While the cardiac infiltrative disease from plaquenil is rare, it is hard to diagnose but it requires biopsy which is invasive. Given that there is no life threatening cardiac issue going on currently I think it would be best to try to decrease her overall plaquenil cumulative dose Plan - Decrease plaquenil to 200mg bid 3 times a week and 200mg od 4 times a week - RTC 6 months - Labs before visit: CBC, CMP, ESR, CRP, C3, C4, dsDNA, UA, UPC (2) Long-term use of hydroxychloroquine: Comment: on HCQ for a total of 10 years so far. Eye exam OK 02/2024 Code(s): Z79.899 - Other custodial (current) drug therapy Category: Medical Plan: #Long-term Use of Hydroxychloroquine Discussed with patient the risks and benefits of hydroxychloroquine in managing the rheumatic condition Benefits include: - Reduced pain, reduce mortality, maintenance of remission and reduction of flares Risks include: - GI upset, skin hyperpigmentation, retinal toxicity (especially after more than 5 years of use), myopathy Advised yearly ophthalmology visits Plan I spent 30 minutes reviewing the record and labs, taking a history, examining the patient, discussing the treatment plan, ordering diagnostic work up and documenting in the medical record Orders: Orders Complement C3 6 Months M35.9 - Systemic involvement of connective tissue, unspecified Erythrocyte Sedimentation Rate 6 Months M35.9 - Systemic involvement of connective tissue, unspecified Complement C4 6 Months M35.9 - Systemic involvement of connective tissue, unspecified Complete Blood Count Auto Diff 6 Months M35.9 - Systemic involvement of connective tissue, unspecified Anti DNA DS Antibody 6 Months M35.9 - Systemic involvement of connective tissue, unspecified Comprehensive Met. Panel 6 Months M35.9 - Systemic involvement of connective tissue, unspecified C Reactive Protein 6 Months M35.9 - Systemic involvement of connective tissue, unspecified Medications: Changed From hydroxychloroquine Take 1 tab twice daily x4 days a week and 1 tab daily x3 days a week 44 tabs 5RF M35.9 - Systemic involvement of connective tissue, unspecified To hydroxychloroquine Take 1 tab twice daily x 3 days a week and 1 tab daily x 4 days a week 44 tabs 6RF M35.9 - Systemic involvement of connective tissue, unspecified Coding Level of Care Code Est Pt Level 4 (66951) Complex EM visit Add On G2211 Diagnoses Undifferentiated connective tissue disease M35.9 Long-term use of hydroxychloroquine Z79.899
[2025-05-25 09:04] VITALS: BP 140/90; PULSE 98; O2SAT 99; BMI 27.0
--- OUTSIDE RECORDS SUMMARY | 2025-05-25 09:25 | XMS_ITS | Clinical Summary ---
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 Not on yahir e 03/17/2023 Are you concerned about learning? Not on file 03/17/2023 No 03/17/2023 No 03/17/2023 Digital Access Answer Date Recorded No 03/31/2023 No 03/31/2023 Reliable internet access at home? Not on file 03/31/2023 Device with a working camera? Not on file Comments Unknown Sex and Gender Information Value Date Recorded Sex Assigned at Not on file Legal Sex Female 6:27 PM EST Gender Identity Not on file Sexual Orientation [...] on file Medical Devices Not on file Insurance [employer]MINISTRATORS ADMINISTRATORS ADMINISTRAT[employer] BENEFITS ADMINISTRATORS [employer] Care Teams Punch Press Operator Relationship Specialty Start Date End Date Pcp, Unknown PCP - General 08/03/21 Additional Source Comments The information contained in this document represents components of the legal health record. It is not the complete legal health record.[facility]
== END 2025-05-25 09:35 | disposition home or self-care (01) ==
LOC: HO.RHE 08:58
PROVIDERS: PCP Family Medicine; Visit Provider Student in an Organized Health Care Education/Training Program
DX: M35.89 Other specified systemic involvement of connective tissue (principal); Z79.899 Other long term (current) drug therapy
CPT/HCPCS: 99214

== ENCOUNTER 2025-06-14 15:44 | Outpatient (AMB) | payer OTHER, SELFPAY ==
--- NOTE | 2025-06-14 15:45 | A.OFFVIS_ITS ---
Vital Signs 06/14/25 15:48 Height 5 ft 3 in Weight 151 lb 3.794 oz BMI 26.8 BP 148/90 H Blood Pressure Location Rt brachial Position Sitting Pulse 90 Pulse Source Pulse Oximeter Pulse Oximetry (%) 97 Oxygen Delivery Method Room Air Intake Visit Reasons: discuss colo Intake Note: ESTABLISHED PATIENT for GERD + abd dist. mgmt. Discuss possible colo/egd. Chief Complaint; C.O. mild constipation. Pt states that she has stopped her fiber as she was having worse sx with the fiber intake. Pt was having loose stools with some diarrhea. [place] [employer] Required: No Accompanied by: Self / Same As Patient Allergies Penicillins (PENICILLINS) Allergy (Intermediate, Verified 06/16/25 15:00) RASH HPI HPI discuss colo: Details: LAST VISIT: GERD (gastroesophageal reflux disease) Postprandial epigastric pain Chronic idiopathic constipation Abdominal bloating Postprandial diarrhea Plan Possible that culprit could be the magnesium, however patient can stop taking it for couple days and see if that is going to make a difference. Continue high- fiber therapy. Continue avoiding food. No FODMAP diet as recommended in the past. Avoid dietary triggers to help with reflux. Continue pantoprazole daily. Avoid late night snacking. Staying upright for minimal 3 hours after meals discussed with patient. Follow-up in 6 months, sooner on as needed basis. Patient is agreeable to this plan and verbalizes understanding of instructions. She was given the opportunity to ask questions and all questions answered. ? TODAY'S VISIT: Patient is here today for follow-up. Patient reports that she has been doing generally well, however she sometimes will still be constipated uses Dulcolax as needed. Occasional blood in the stool but only when constipated. Patient denies melena, unintentional weight loss or ribbon like stools. Patient denies dyspepsia, dysphagia odynophagia, symptoms of acid reflux are suppressed for the most part with pantoprazole. Patient denies any dyspepsia, dysphagia or odynophagia. If patient for get medication or if she eats something spicy she will have epigastric pain. Occasional abdominal bloating postprandially depending on what she eats. Abdominal cramping if no bowel movement for couple days. [facility] Medical History (Updated 06/16/25 @ 20:29 by Claudia Phillips [facility]) Chronic idiopathic constipation Abnormal appearance of cervix Undifferentiated connective tissue disease Sessile serrated polyp of colon Multiple sclerosis GERD (gastroesophageal reflux disease) Chronic constipation Palpitations Surgical History Hx of colonoscopy History of endometrial ablation Family History Mother Uterus cancer Rheumatoid arthritis Fibromyalgia CAD (coronary artery disease) Angina pectoris, unspecified Father Lupus Brain aneurysm Sister Cervical cancer Maternal Aunt Breast cancer, Onset Age: 35 Maternal Grandmother History of heart attack DM2 (diabetes mellitus, type 2) Other Mental health disorder Substance use disorder Social History Household Members: Spouse Housing: House Are you a primary rn home care to a significant other at home: No Do you presently have visiting nurse or other home services: No Alcohol intake: never Patient Tobacco Use Status: Never used Tobacco service: No Current occupational status: employed 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 Current occupational exposures/hazards: No Sexual orientation: Straight/Heterosexual Gender identity: Female Review of Systems Const Denies weight gain and Denies weight loss ENT Reports no additional complaints, Denies dysphagia and Denies odynophagia Card Reports no additional complaints Resp Reports no additional complaints GI Denies abdominal pain, Denies belching, Denies melena, Denies bloating, Denies change in bowel habits, Denies dysphagia, Denies excessive flatus, Denies dyspepsia, Denies heartburn, Denies diarrhea, Denies loose stools, Denies nausea, Denies odynophagia and Denies vomiting Musc Reports no additional complaints Neuro Reports no additional complaints Psych Reports no additional complaints Endo Reports no additional complaints Physical Exam Vital Signs: Last Vital Signs Pulse 90 06/14/25 15:48 BP 148/90 H 06/14/25 15:48 Pulse Ox 97 06/14/25 15:48 Oxygen Delivery Method Room Air 06/14/25 15:48 BMI result Body Mass Index 26.8 Const General: healthy appearing and no acute distress Nutritional Appearance: obese Orientation/consciousness: patient oriented x3 Resp Effort & Inspection: normal respiratory effort, able to speak in complete sentences, no tracheal deviation and symmetric chest movement Auscultation: clear to auscultation bilaterally Cardio Rate: regular rate GI Inspection: Yes normal to inspection, No distended and Yes obesity Palpation (GI): Soft to palpation, not firm, nontender and No hepatosplenomegaly present Auscultation: normal bowel sounds General: Yes no CVA tenderness Back/Spine/Pelvis Back: no CVA tenderness Skin General skin exam: elasticity normal, turgor normal and dry skin Neuro General: patient oriented x3 Psych Appearance: grossly normal Mental Status: mental status grossly normal Assessment & Plan Assessment & Plan (1) Chronic GERD: Code(s): K21.9 - Gastro-esophageal reflux disease without esophagitis Category: Medical (2) GERD (gastroesophageal reflux disease): Code(s): K21.9 - Gastro-esophageal reflux disease without esophagitis Category: Medical Qualifiers: Esophagitis presence: esophagitis presence not specified Qualified Code(s): K21.9 - Gastro-esophageal reflux disease without esophagitis (3) Screening for colon cancer: Code(s): Z12.11 - Encounter for screening for malignant neoplasm of colon Category: Medical (4) Chronic idiopathic constipation: Code(s): K59.04 - Chronic idiopathic constipation Category: Medical Plan Patient reports that her constipation sometimes is getting worse despite even taking medications. Patient was told not to take Dulcolax. Patient states that she is unable to go without taking it. What to expect before during and after procedure discussed with patient. Stressed the importance of good bowel prep and clear liquid diet day before procedure. Patient will go for upper endoscopy as well. Continue pantoprazole daily. Avoid dietary triggers in late night snacking. Staying upright for minimum 3 hours after meals discussed with patient. Patient will be seen after the procedure, sooner on as needed basis. Patient was encouraged to call our office if he will have any GI concerning symptoms. Patient is agreeable to current plan of care and verbalizes understanding of instructions. She was given the opportunity to ask questions and all questions answered. Thank you for allowing me to participate in her care Medications: New polyethylene glycol 3350 (Miralax) As directed by gastroenterology department at [facility] 238 grams PO ONCE 238 grams 0RF Z12.11 - Encounter for screening for malignant neoplasm of colon Coding Level of Care Code Est Pt Level 3 (68251) Diagnoses Chronic GERD K21.9 Gastroesophageal reflux disease, unspecified whether esophagitis present K21.9 Esophagitis presence: esophagitis presence not specified Screening for colon cancer Z12.11 Chronic idiopathic constipation K59.04 Time Spent (min) 30 Comment 20 minutes spent with patient and additional 10 minutes spent reviewing her records
--- OUTSIDE RECORDS SUMMARY | 2025-06-14 15:47 | XMS_ITS | Clinical Summary ---
Author Organization [facility] Address [address] [place] [id number] Phone Care Team Providers Care Bench Worker Binding Name Role Phone Pcp, Unknown Primary Care [...] Not on file Insurance ADMINISTRATORS ADMINISTRATORS ADMINISTRATORS [employer] BENEFITS ADMINISTRATORS [employer] BENEFITS ADMINISTRATORS [employer] BENEFITS ADMINISTRATORS [employer]EF[employer] ADMINISTRATORS [employer]EFITS ADMINISTRATORS Care Teams Bench Worker Binding Relationship Specialty Start Date End Date Pcp, Unknown PCP - General 08/03/21 Additional Source Comments The information contained in this document represents components of the legal health record. It is not the complete legal health record.[facility]
[2025-06-14 15:48] VITALS: BP 148/90; PULSE 90; O2SAT 97; BMI 26.8
== END 2025-06-14 17:00 | disposition home or self-care (01) ==
LOC: HO.HGI 15:44
PROVIDERS: PCP Family Medicine; Visit Provider Nurse Practitioner Family
DX: Z01.818 Encounter for other preprocedural examination (principal); Z12.11 Encounter for screening for malignant neoplasm of colon; K59.04 Chronic idiopathic constipation; K21.9 Gastro-esophageal reflux disease without esophagitis
CPT/HCPCS: S0285

== ENCOUNTER 2025-06-16 14:49 | Outpatient (REF) | payer OTHER, SELFPAY ==
[2025-06-17 03:54] LABS: Syphilis Screen Nonreactive (Nonreactive)
[2025-06-17 04:35] LABS: HBc Num1 0.07 S/CO (0.00-0.79); HIV Num 1 0.05 S/CO (0.00-0.99); ~HepC Num1 0.17 S/CO (0.00-0.79); ~Hepatitis C Antibody Nonreactive (Nonreactive)
== END 2025-06-16 14:50 | disposition home or self-care (01) ==
LOC: HO.LAB 14:49
PROVIDERS: PCP Family Medicine; Visit Provider Advanced Practice Midwife
DX: Z01.419 Encounter for gynecological examination (general) (routine) without abnormal findings (principal); N88.9 Noninflammatory disorder of cervix uteri, unspecified; N87.0 Mild cervical dysplasia; Z12.31 Encounter for screening mammogram for malignant neoplasm of breast; Z11.3 Encounter for screening for infections with a predominantly sexual mode of transmission; Z11.59 Encounter for screening for other viral diseases; Z11.4 Encounter for screening for human immunodeficiency virus [HIV]; Z20.2 Contact with and (suspected) exposure to infections with a predominantly sexual mode of transmission
CPT/HCPCS: 36415; 86704; 86780; 86803; 87389

== ENCOUNTER 2025-06-16 14:49 | Outpatient (AMB) | payer OTHER, SELFPAY ==
--- NOTE | 2025-06-16 14:53 | MHC.OFFVIS ---
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 Director Of Athletics concerns: none. LMP 2005. Currently sexually active. Denies any vaginal dryness or irritation. STI testing offered; she accepts. Attempting to eat a healthy diet with calcium and vitamin D and stays active with exercise. Last pap smear; 2023, history of ASCUS, colposcopy with KEREN 1. Concern regarding rectal HPV, had colonoscopy with previous polyps removed is due this year for repeat evaluation. Last mammogram; 2022, no appointment scheduled. Colonoscopy is planned q 3 yrs. FH breast cancer. [facility] Medical History Abnormal appearance of cervix Undifferentiated connective tissue disease Sessile serrated polyp of colon Multiple sclerosis GERD (gastroesophageal reflux disease) Chronic constipation Palpitations Surgical History Hx of colonoscopy History of endometrial ablation Family History Mother Uterus cancer Rheumatoid arthritis Fibromyalgia CAD (coronary artery disease) Angina pectoris, unspecified Father Lupus Brain aneurysm Sister Cervical cancer Maternal Aunt Breast cancer, Onset Age: 35 Maternal Grandmother History of heart attack DM2 (diabetes mellitus, type 2) Other Mental health disorder Substance use disorder Social History Household Members: Spouse Housing: House Are you a primary acute care clinical nurse specialist to a significant other at home: No Do you presently have visiting nurse or other home services: No Alcohol intake: never Patient Tobacco Use Status: Never used Tobacco service: No Current occupational status: employed 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 Current occupational exposures/hazards: No Sexual orientation: Straight/Heterosexual Gender identity: Female Female Reproductive History Menstrual control method: none Total pregnancies: 3 Full term: 3 Date of last pap smear: 06/11/24 (+hpv) History of abnormal pap smear: Yes (11/20 ascus) Date of Mammogram: 05/15/23 (bi rad 1) Review of Systems Const All systems reviewed & are unremarkable except as noted in HPI and below Reports as per HPI Eyes Reports no additional complaints ENT Reports no additional complaints Card Reports no additional complaints Resp Reports no additional complaints GI Reports as per HPI and Reports no additional complaints Reports as per HPI Musc Reports no additional complaints Skin/Breast Reports as per HPI Neuro Reports no additional complaints Psych Reports no additional complaints Endo Reports no additional complaints Lico/Lymph Reports no additional complaints Aller/Immun Reports no additional complaints Physical Exam Vital Signs: Last Vital Signs BP 146/78 H 06/16/25 15:01 BMI result Body Mass Index 26.7 Const General: cooperative, healthy appearing, no acute distress, well developed and alert Orientation/consciousness: patient oriented x3 HEENT Head: Yes normal to inspection Eyes General: appearance normal, both eyes and all related structures Neck Neck: Yes normal visual inspection Thyroid: Thyroid normal Chest Chest palpation & inspection: normal inspection of the chest and other (no puckering, dimpling, peau de orange, retraction, discharge, masses) Breast/axilla inspection: normal inspection of the breasts Breast/axilla palpation: normal palpation of the breasts Resp Effort & Inspection: normal respiratory effort GI Inspection: Yes normal to inspection Palpation (GI): Soft to palpation Rectal Exam - Female: deferred General: Yes bladder normal to palpation External Female Exam: normal external appearance and normal appearance of the urethra Speculum Exam - Vagina: normal appearance of the vagina, normal palpation, normal vaginal discharge and vagina atrophic Speculum Exam - Cervix: normal appearance of the cervix, normal palpation and Cervical lesion present (Glandular appearance, distorted, possible scarring) Bimanual exam- vagina & uterus: normal bimanual exam, normal palpation, uterine size normal, bladder normal to palpation, normal palpation and non-tender Bimanual Exam- Adnexa, other: no masses Skin General skin exam: no rashes or lesions noted Rashes: no rashes Neuro General: patient oriented x3 Cognition (Neuro): normal cognition Extrem General: Yes normal to inspection Psych Attitude: cooperative Thought process: Normal thought process present Assessment & Plan Assessment & Plan (1) Abnormal appearance of cervix: Code(s): N88.9 - Noninflammatory disorder of cervix uteri, unspecified Category: Medical Plan: Plan follow up pending Pap smear results, consider colposcopy evaluation for further evaluation if indicated. (2) Encounter for well woman exam with routine gynecological exam: Code(s): Z01.419 - Encounter for gynecological examination (general) (routine) without abnormal findings Category: Medical Plan: Discussed: Current recommendations for pap smears per ASCCP guidelines. Breast awareness, periodic self breast exams and yearly mammogram. Maintain a healthy lifestyle, well balanced diet including Calcium 1,200 mg and Vitamin D 600 IU daily, and routine exercise. Use of condoms for STI prevention if indicated. Encouraged STDs screening and bled work to be completed. Contact the office with any postmenopausal bleeding. Patient verbalizes understanding and agrees to the plan of care. She was given opportunity to ask questions and all questions were answered to the best of my ability. RTO in 1 year for annual electronic news gathering camera person exam. This note is constructed using voice recognition software. While every effort has been made to ensure accuracy, pump and still operator errors may have been included. (3) Dysplasia of cervix, low grade (KEREN 1): Code(s): N87.0 - Mild cervical dysplasia Category: Medical Plan Repeat Pap completed, await results for final plan of care. Discuss rectal Pap screening criteria, patient declines rectal Pap. Orders: Orders MM tomosynthesis screening BI Today Z12.31 - Encounter for screening mammogram for malignant neoplasm of breast Hepatitis B Core Antibody Today Z20.2 - Contact with and (suspected) exposure to infections with a predominantly sexual mode of transmission Syphilis Screen Today Z20.2 - Contact with and (suspected) exposure to infections with a predominantly sexual mode of transmission Bacterial Vaginosis Panel Today Z11.3 - Encounter for screening for infections with a predominantly sexual mode of transmission CT NG by PCR Vag/Cerv Today Z11.3 - Encounter for screening for infections with a predominantly sexual mode of transmission HIV Ab/Ag Today Z20.2 - Contact with and (suspected) exposure to infections with a predominantly sexual mode of transmission Hepatitis C Antibody Reflex Today Z20.2 - Contact with and (suspected) exposure to infections with a predominantly sexual mode of transmission HPV High risk Today Z01.419 - Encounter for gynecological examination (general) (routine) without abnormal findings Pap Smear Today Z01.419 - Encounter for gynecological examination (general) (routine) without abnormal findings Coding Level of Care Code Est Pt Prev Care 40-64y(93183) Diagnoses Abnormal appearance of cervix N88.9 Encounter for well woman exam with routine gynecological exam Z01.419 Dysplasia of cervix, low grade (KEREN 1) N87.0
--- OUTSIDE RECORDS SUMMARY | 2025-06-16 14:56 | XMS_ITS | Clinical Summary ---
Author Organization [facility] Address [address] [place] [phone] Phone Care Team Providers Care Net Front End Developer Name Role Phone Pcp, Unknown Primary Care [...] Not on file Insurance ADMINISTRATORS ADMINISTRATORS ADMINISTRATORS Kickit With BENEFITS ADMINISTRATORS Kickit With BENEFITS ADMINISTRATORS Kickit With BENEFITS ADMINISTRATORS Kickit With BENEFITS ADMINISTRATORS Kickit With BENEFITS ADMINISTRATORS Care Teams Net Front End Developer Relationship Specialty Start Date End Date Pcp, Unknown PCP - General 08/03/21 Additional Source Comments The information contained in this document represents components of the legal health record. It is not the complete legal health record.[facility]
[2025-06-16 15:01] VITALS: BP 146/78; BMI 26.7
== END 2025-06-16 15:27 | disposition home or self-care (01) ==
LOC: HO.HWS 14:49
PROVIDERS: PCP Family Medicine; Visit Provider Advanced Practice Midwife
DX: Z01.419 Encounter for gynecological examination (general) (routine) without abnormal findings (principal); N88.9 Noninflammatory disorder of cervix uteri, unspecified; N87.0 Mild cervical dysplasia
CPT/HCPCS: 99396; 99459

== ENCOUNTER 2025-06-16 15:28 | Outpatient (REF) | payer OTHER, SELFPAY ==
[2025-06-16 21:47] LABS: Bacterial Vaginosis PCR NEGATIVE (Negative); Candida Group PCR NOT DETECTED (Not Detect); Candida glab krusei PCR NOT DETECTED (Not Detect); Trichomonas vaginalis PCR NOT DETECTED (Not Detect)
[2025-06-16 21:51] LABS: CT PCR NOT DETECTED (Not Detect.); NG PCR NOT DETECTED (Not Detect.)
== END 2025-06-16 15:29 | disposition home or self-care (01) ==
LOC: HO.LNP 15:28
PROVIDERS: Visit Provider Advanced Practice Midwife
DX: Z01.419 Encounter for gynecological examination (general) (routine) without abnormal findings (principal); Z11.3 Encounter for screening for infections with a predominantly sexual mode of transmission; Z11.8 Encounter for screening for other infectious and parasitic diseases; Z11.51 Encounter for screening for human papillomavirus (HPV); Z20.2 Contact with and (suspected) exposure to infections with a predominantly sexual mode of transmission
CPT/HCPCS: 81515; 87491; 87591; 87626; 88175

== ENCOUNTER 2025-06-25 13:54 | Outpatient (REF) | payer OTHER, SELFPAY ==
--- NOTE | ~2025-06-25 | MM_ITS ---
EXAMINATION: MM SCREENING DIGITAL BREAST TOMOSYNTHESIS, BILATERAL CLINICAL INFORMATION: Screening. Asymptomatic. COMPARISON: Mammography: Comparison is made with available priors TECHNIQUE: Digital breast mammography with tomosynthesis is performed in both the craniocaudal and mediolateral oblique views along with computer-aided detection (CAD). FINDINGS: There are scattered areas of fibroglandular density (ACR BI-RADS breast composition Category b). There are no significant masses, abnormal calcifications, or other abnormalities. MM/MM tomosynthesis screening BI IMPRESSION: No mammographic evidence of malignancy. ASSESSMENT: BI-RADS BI-RADS 1 - Negative RECOMMENDATION: Routine annual mammography screening. 1 year F/U This examination should not preclude the clinical evaluation of a suspicious palpable abnormality. This patient's information was entered into a reminder system with a target due date for their next mammogram. Electronically signed by: Amberly Thompson DO 06/29/2025 01:04 PM EDT
--- OUTSIDE RECORDS SUMMARY | 2025-06-25 13:55 | XMS_ITS | Clinical Summary ---
Author Organization [facility] Address [address] [place] [id number] Phone Care Team Providers Care Breaker Machine Operator Name Role Phone Pcp, Unknown Primary [...] Not on file Insurance ADMINISTRATORS ADMINISTRATORS ADMINISTRATORS [employer] [place] BENEFITS ADMINISTRATORS [employer] [place] BENEFITS ADMINISTRATORS [employer] [place] BENEFITS ADMINISTRATORS [employer] [place] BENEFITS ADMINISTRATORS [employer] [place] BENEFITS ADMINISTRATORS Care Teams Breaker Machine Operator Relationship Specialty Start Date End Date Pcp, Unknown PCP - General 08/03/21 Additional Source Comments The information contained in this document represents components of the legal health record. It is not the complete legal health record.[facility]
== END 2025-06-25 13:55 | disposition home or self-care (01) ==
LOC: HO.MAMMO 13:54
PROVIDERS: PCP Family Medicine; Visit Provider Advanced Practice Midwife
DX: Z12.31 Encounter for screening mammogram for malignant neoplasm of breast (principal)
CPT/HCPCS: 77063; 77067

== ENCOUNTER → 2025-06-25 13:55 | Outpatient (BNV) | payer OTHER, SELFPAY | PROVIDERS: PCP Family Medicine; Visit Provider Internal Medicine | DX: Z12.31 Encounter for screening mammogram for malignant neoplasm of breast (principal) | CPT/HCPCS: 77063; 77067 ==

== ENCOUNTER 2025-07-02 09:46 | Outpatient (AMB) | payer OTHER, SELFPAY ==
--- NOTE | 2025-07-02 09:53 | A.OFFVIS_ITS ---
Vital Signs 07/02/25 09:54 Height 5 ft 3 in Weight 147 lb 6 oz BMI 26.1 BP 128/80 Blood Pressure Location Rt brachial Position Sitting Pulse 95 Pulse Source Pulse Oximeter Pulse Oximetry (%) 97 Oxygen Delivery Method Room Air Intake Visit Reasons: 6 mnts f/u Intake Note: Patient presents 6 month follow up for MS/RLS Mailing Jogger Required: No Accompanied by: Self / Same As Patient Allergies Penicillins (PENICILLINS) Allergy (Intermediate, Verified 07/02/25 09:54) RASH HPI Comments Details: 54-year-old female presenting with management of Multiple Sclerosis. MS symptoms remain mild without relapse. Last- May 2024 brain MRI with/without contrast was stable. She has noticed flushing after taking her Vumerity- which she has never had before.She has tried taking it with a higher fat food and with also with a baby ASA- not sure if she has done these together. She wonders if this could be due to her unintentional weight loss. Clarifies dizziness is lightheadedness- typically only occurring when she bends over, rarely when not bending over. She is f/b cardiology- work-up has not elicited a cause, though they are monitoring cardiomyopathy. She states she is taking in adequate fluid intake. She is seeing rheumatology- they are considering decreasing hydrochloroquine- in thought that it may be contributing to the cardiomyopathy. Gabapentin effectively manages restless legs syndrome. She continues to struggle with constipation- has decreased awareness of need to have BM and difficulty pushing stool.This started just over ayear ago- notes that she felt her neuroapthy symptoms had moved up the right leg and into the right side of her rectum, which persisted x's about 2 weeks, and then she developed the difficulty sensing and being able to push out stool. She endorses a life-long h/o constipation- but previously had intact urge and rectum strength. She continues to have urinary leakage. [facility] Medical History (Updated 07/02/25 @ 10:57 by BEBETO Howard) Chronic idiopathic constipation Abnormal appearance of cervix Undifferentiated connective tissue disease Sessile serrated polyp of colon Multiple sclerosis GERD (gastroesophageal reflux disease) Chronic constipation Palpitations Surgical History Hx of colonoscopy History of endometrial ablation Family History Mother Uterus cancer Rheumatoid arthritis Fibromyalgia CAD (coronary artery disease) Angina pectoris, unspecified Father Lupus Brain aneurysm Sister Cervical cancer Maternal Aunt Breast cancer, Onset Age: 35 Maternal Grandmother History of heart attack DM2 (diabetes mellitus, type 2) Other Mental health disorder Substance use disorder Social History Household Members: Spouse Housing: House Are you a primary direct support professional caregiver to a significant other at home: No Do you presently have visiting nurse or other home services: No Alcohol intake: never Patient Tobacco Use Status: Never used Tobacco service: No Current occupational status: employed Current occupation: [employer] Current occupational exposures/hazards: No Sexual orientation: Straight/Heterosexual Gender identity: Female Physical Exam Vital Signs: Last Vital Signs Pulse 95 07/02/25 09:54 BP 128/80 07/02/25 09:54 Pulse Ox 97 07/02/25 09:54 Oxygen Delivery Method Room Air 07/02/25 09:54 BMI result Body Mass Index 26.1 Const General: cooperative and no acute distress Orientation/consciousness: patient oriented x3 Resp Effort & Inspection: normal respiratory effort and able to speak in complete sentences Neuro General: patient oriented x3 Cranial nerves: Yes CN's II-XII intact bilaterally Cognition (Neuro): normal cognition Gait exam (Neuro): Normal gait present Deep tendon reflexes (DTR's): Right triceps reflex intensity grade: 2+, Left triceps reflex intensity grade: 2+, Rt Biceps (C5, C6): 2+, Left biceps reflex intensity grade: 2+, Right brachioradialis reflex intensity grade: 2+, Left brachioradialis reflex intensity grade: 2+, Right patellar reflex intensity grade: 2+ and Left patellar reflex intensity grade: 3+ Psych Appearance: grossly normal Mental Status: mental status grossly normal Speech and movement: Normal speech and movement present Affect: normal affect Attitude: cooperative Results Reviewed Results Reviewed: 05/12/2024, MR/MR head/brain wo/w con IMPRESSION: 1. Unchanged bilateral multiple frontal and parietal multiple demyelinating lesions consistent with known history of multiple sclerosis. There is no interval change in size of the largest right mid osei radiata lesion with positive black hole sign, consistent with irreversible axonal damage. 2. No acute cerebral infarction is seen. 3. No evidence of space occupying mass lesion or enhancing acutely demyelinating lesion could be found. 4. No evidence of intracranial hemorrhage. Assessment & Plan Assessment & Plan (1) Multiple sclerosis: Code(s): G35 - Multiple sclerosis Category: Medical (2) Restless leg syndrome: Comment: Failed ropinirole: Caused compulsive behaviors. Code(s): G25.81 - Restless legs syndrome Category: Medical Plan For MS: * Continue Vumerity * try taking ASA and high-fat food together in hopes this lessens flushing * Advise to undergo brain, cervical, thoracic MRI w/wo contrast to assess for any interval increase in central demyelinating lesions, in setting of changes in bowel status- specifically absence of urge and strength to past a bowel movement * Check labs * Maintain adequate hydration and monitor electrolyte balance, especially in hot weather. * Follow-up with GI as scheduled * Follow-up with rheumatology as scheduled * Follow-up with cardiology as scheduled. For restless leg syndrome: * Continue gabapentin 200 mg q.h.s. * Previous trials: Ropinirole caused compulsive behaviors. ? For cervicalgia: * Continue PT stretches * Magnesium 400mg qhs. * Future consideration- Baclofen, Flexeril- low dose as pt is sensitive to sedating medications. ? Follow-up in 6 months or sooner p.r.n. Orders: Orders Complete Blood Count Auto Diff 07/02/25 G35 - Multiple sclerosis Comprehensive [place]. Panel Fast 07/02/25 G35 - Multiple sclerosis MR head/brain wo/w con 07/02/25 G35 - Multiple sclerosis, M35.9 - Systemic involvement of connective tissue, unspecified, R19.8 - Other specified symptoms and signs involving the digestive system and abdomen, R39.89 - Other symptoms and signs involving the genitourinary system, Z79.899 - Other longwall shearer operator (current) drug therapy MR cervical spine wo/w con 07/02/25 G35 - Multiple sclerosis, M35.9 - Systemic involvement of connective tissue, unspecified, R19.8 - Other specified symptoms and signs involving the digestive system and abdomen, R39.89 - Other symptoms and signs involving the genitourinary system, Z79.899 - Other longwall shearer operator (current) drug therapy MR thoracic spine wo/w con 07/02/25 G35 - Multiple sclerosis, M35.9 - Systemic involvement of connective tissue, unspecified, R19.8 - Other specified symptoms and signs involving the digestive system and abdomen, R39.89 - Other symptoms and signs involving the genitourinary system, Z79.899 - Other longwall shearer operator (current) drug therapy Coding Level of Care Code Est Pt Level 4 (54182) Diagnoses Multiple sclerosis G35 Restless leg syndrome G25.81
[2025-07-02 09:54] VITALS: BP 128/80; PULSE 95; O2SAT 97; BMI 26.1
--- OUTSIDE RECORDS SUMMARY | 2025-07-02 10:31 | XMS_ITS | Clinical Summary ---
Author Organization [facility] Address [address] [place] [id number] Phone Care Team Providers Care Water Use Inspector Name Role Phone Pcp, Unknown Primary Care [...] Not on file Insurance ADMINISTRATORS ADMINISTRATORS ADMINISTRATORS [employer] BENEFITS ADMINISTRATORS [employer] BENEFITS ADMINISTRATORS [employer] BENEFITS ADMINISTRATORS [employer] BENEFITS ADMINISTRATORS [employer] BENEFITS ADMINISTRATORS Care Teams Water Use Inspector Relationship Specialty Start Date End Date Pcp, Unknown PCP - General 08/03/21 Additional Source Comments The information contained in this document represents components of the legal health record. It is not the complete legal health record.[facility]
== END 2025-07-02 11:07 | disposition home or self-care (01) ==
LOC: HO.HSMS 09:47
PROVIDERS: PCP Hospitalist; Visit Provider Nurse Practitioner Family
DX: G35 Multiple sclerosis (principal); G25.81 Restless legs syndrome
CPT/HCPCS: 99214

== ENCOUNTER 2025-07-16 12:51 | Outpatient (REF) | payer OTHER, SELFPAY ==
--- NOTE | ~2025-07-16 | MR_ITS ---
CLINICAL HISTORY: G35 - Multiple sclerosis MR Brain with and without gadolinium Comparison: MRI brain 05/12/2024 Findings: No restricted diffusion. No intra-axial mass or hemorrhage. No midline shift. No hydrocephalus. Vascular flow voids are intact. There are stable multifocal bilateral increased periventricular and subcortical increased T2 nonenhancing white matter foci. There is no abnormal enhancement on the exam. Orbital contents are unremarkable. There is a stable right maxillary sinus mucous retention cyst No focal bone lesion. IMPRESSION: Stable T2 white matter lesions which likely correspond to to provided history of demyelinating disease multiple sclerosis This document has been electronically signed by: Kee Wright MD on 07/17/2025 07:56:47
--- NOTE | ~2025-07-16 | MR_ITS ---
CLINICAL HISTORY: G35 - Multiple sclerosis MR cervical spine with and without gadolinium Comparison: MR/SR - MR CERVICAL SPINE WITHOUT THEN WITH IV CONTRAST - 05/03/23 09:43 EDT Findings: Vertebral alignment is within normal limits. No acute fractures or pathologic bone lesions. Visualized intracranial contents are unremarkable. Soft tissues of the neck are normal. No cord lesions. Cord signal is normal. No abnormal enhancement within the cord. Degenerative changes level by level: C2-3: No abnormality C3-4: Disc height loss and disc desiccation. There is a disc osteophyte complex with a left paracentral disc bulge. There are bilateral uncovertebral spurring with resultant severe left and mild right foraminal narrowing. No central canal narrowing. Findings are not significantly changed from prior. C4-5: there is a circumferential disc bulge with a small focal central protrusion, slightly more prominent than on prior. No central canal narrowing. No foraminal narrowing. C5-6: there is no significant abnormality. At C6-7 there is no significant abnormality. IMPRESSION: 1. No cord lesions or abnormal enhancement. 2. Degenerative changes at C3-4 and C4-5 with minimal change in comparison to prior. This document has been electronically signed by: Chon Hamlin MD on 07/17/2025 00:24:49
--- NOTE | ~2025-07-16 | MR_ITS ---
CLINICAL HISTORY: G35 - Multiple sclerosis MR thoracic spine with and without gadolinium Comparison: None provided Findings: Normal alignment. No acute fracture or pathologic bone lesion. Thoracic cord normal size and signal. No significant spinal canal or foraminal stenoses. No significant degenerative change. Paraspinous musculature intact. No abnormal enhancement is noted after IV contrast administration. IMPRESSION: No acute findings. This document has been electronically signed by: Lefty Collado MD on 07/17/2025 14:24:33
--- OUTSIDE RECORDS SUMMARY | 2025-07-16 15:12 | XMS_ITS | Clinical Summary ---
Author Organization [facility] Address [address] [place] [address] Phone Care Team Providers Care Budget Director Name Role Phone Pcp, Unknown Primary Care [...] Not on file Insurance ADMINISTRATORS ADMINISTRATORS ADMINISTRATORS [employer] BENEFITS ADMINISTRATORS [employer] BENEFITS ADMINISTRATORS [employer] BENEFITS ADMINISTRATORS [employer] BENEFITS ADMINISTRATORS [employer] BENEFITS ADMINISTRATORS Care Teams Budget Director Relationship Specialty Start Date End Date Pcp, Unknown PCP - General 08/03/21 Additional Source Comments The information contained in this document represents components of the legal health record. It is not the complete legal health record.[facility]
== END 2025-07-16 12:52 | disposition home or self-care (01) ==
LOC: HO.MRI 12:51
PROVIDERS: Visit Provider Nurse Practitioner Family
DX: G35 Multiple sclerosis (principal); M35.9 Systemic involvement of connective tissue, unspecified; R39.89 Other symptoms and signs involving the genitourinary system; R19.8 Other specified symptoms and signs involving the digestive system and abdomen; Z79.899 Other long term (current) drug therapy
CPT/HCPCS: 70553; 72156; 72157; A9585

== ENCOUNTER → 2025-07-16 12:53 | Outpatient (BNV) | payer OTHER, SELFPAY | PROVIDERS: Visit Provider Radiology Diagnostic Radiology | DX: G35 Multiple sclerosis (principal); M50.321 Other cervical disc degeneration at C4-C5 level | CPT/HCPCS: 70553; 72156; 72157 ==

== ENCOUNTER 2025-07-17 07:51 | Outpatient (REF) | payer OTHER, SELFPAY ==
--- OUTSIDE RECORDS SUMMARY | 2025-07-17 07:53 | XMS_ITS | Clinical Summary ---
Author Organization [facility] Address [address] [place] [id number] Phone Care Team Providers Care Stop Attacher Name Role Phone Pcp, Unknown Primary Care [...] Not on file Insurance ADMINISTRATORS ADMINISTRATORS ADMINISTRATORS [employer] BENEFITS ADMINISTRATORS [employer] BENEFITS ADMINISTRATORS [employer] BENEFITS ADMINISTRATORS [employer] BENEFITS ADMINISTRATORS [employer] BENEFITS ADMINISTRATORS Care Teams Stop Attacher Relationship Specialty Start Date End Date Pcp, Unknown PCP - General 08/03/21 Additional Source Comments The information contained in this document represents components of the legal health record. It is not the complete legal health record.[facility]
--- OUTSIDE RECORDS SUMMARY | 2025-07-17 07:53 | XMS_ITS ---
Author Organization Unknown ENCOUNTERS Encounter Performer Location Date Diagnosis Diagnosis Status Pre Admit [address] [id number] [id number] [address]patient [address] [address] [id number] [place] Pre Admit [address] [id number] [address] [id number] [place] *Note: Encounters from your own facility or health system may be excluded. Allergies, Adverse Reactions, Alerts Allergen Type Severity Identification Date Medications Name Date Quantity Days Supplied GPI Number
[2025-07-17 07:59] LABS: MANUAL DIFF FLAG NO
[2025-07-17 08:05] LABS: Hematocrit 41.3 % (37.0-47.0); Hemoglobin 14.0 g/dl (12.0-16.0); Imm Gran Abs Auto 0.01 X10*3/uL (0.00-0.03); Imm Gran Pct Auto 0.2 % (0.0-0.4); Lymphocytes Absolute Auto 1.2 X10*3/uL (1.2-4.9); Mean Corpuscular HGB Conc 33.9 g/dl (31.0-35.0); Mean Corpuscular Hemoglobin 30.4 pg (27.0-33.0); Mean Corpuscular Volume 89.8 fL (80.0-98.0); NRBC Abs Auto 0.000 X10*3/uL (0.0-0.012); NRBC Pct Auto 0.0 /100WBC (0.0-0.2); Platelet Count 213 X10*3/uL (160-400); Red Blood Count 4.60 X10*6/uL (4.20-5.50); White Blood Count 4.2 X10*3/uL (4.8-10.8)
[2025-07-17 08:35] LABS: Alanine Aminotransferase 13 U/L (0-31); Albumin Level 4.5 g/dL (3.5-5.0); Alkaline Phosphatase 57 U/L (39-117); Anion Gap 12 (12-20); Aspartate Amino Transferase 18 U/L (5-31); Blood Urea Nitrogen 21 mg/dL (9-16); Calcium 9.3 mg/dL (8.4-10.2); Carbon Dioxide 26 mmol/L (22-29); Chloride 109 mmol/L (96-108); Estimated Glomerular Filt Rate > 60; Potassium 4.4 mmol/L (3.3-5.1); Sodium 143 mmol/L (135-145); Total Protein 7.2 g/dL (6.5-8.0)
== END 2025-07-17 07:52 | disposition home or self-care (01) ==
LOC: HO.LAB 07:51
PROVIDERS: Visit Provider Nurse Practitioner Family
DX: G35 Multiple sclerosis (principal)
CPT/HCPCS: 36415; 80053; 85025

== ENCOUNTER 2025-07-20 14:26 | Outpatient (AMB) | payer OTHER, SELFPAY ==
--- NOTE | 2025-07-20 14:34 | A.OFFVIS_ITS ---
Intake Visit Reasons: Colposcopy Sales Order Coordinator: Sales Order Coordinator Present (Jennyfer) Accompanied by: Self / Same As Patient Allergies Penicillins (PENICILLINS) Allergy (Intermediate, Verified 07/20/25 14:35) RASH HPI Comments Details: Presenting for ascus HPV positive, HPV 16/18 negative [facility] Medical History Chronic idiopathic constipation Abnormal appearance of cervix Undifferentiated connective tissue disease Sessile serrated polyp of colon Multiple sclerosis GERD (gastroesophageal reflux disease) Chronic constipation Palpitations Surgical History Hx of colonoscopy History of endometrial ablation Family History Mother Uterus cancer Rheumatoid arthritis Fibromyalgia CAD (coronary artery disease) Angina pectoris, unspecified Father Lupus Brain aneurysm Sister Cervical cancer Maternal Aunt Breast cancer, Onset Age: 35 Maternal Grandmother History of heart attack DM2 (diabetes mellitus, type 2) Other Mental health disorder Substance use disorder Social History Household Members: Spouse Housing: House Are you a primary resident care aide to a significant other at home: No Do you presently have visiting nurse or other home services: No Alcohol intake: never Patient Tobacco Use Status: Never used Tobacco service: No Current occupational status: employed Current occupation: [employer] Current occupational exposures/hazards: No Sexual orientation: Straight/Heterosexual Gender identity: Female Review of Systems Const All systems reviewed & are unremarkable except as noted in HPI and below Reports as per HPI and Reports no additional complaints GI Reports no additional complaints Reports no additional complaints Office Procedures Colposcopy Colposcopy: Pre-Procedure Counseling: Before beginning the procedure, I conducted comprehensive counseling with the patient. We thoroughly discussed the procedure itself, including its details, alternatives, and all associated risks. This included but not limited to the following complications such as bleeding, infection, and injury to the vagina, bladder, and vessels, as well as the potential need for transfusion with all its associated risks. Subsequently, the patient sign the consent. Pap smear result: Ascus/HPV positive, HPV 16/18 negative Procedure: During the procedure, the following steps were performed: A speculum was inserted, and acetic acid was applied. Colposcopy was conducted, allowing visualization of the transformation zone. Acetowhite lesions were identified at the 4+ 11+ 12+ 1 o'clock position. Cervical biopsies were obtained from the 4+ 11+ 12+ 1 o'clock position, followed by an endocervical curettage (ECC). Vaginoscopy of the upper vagina revealed no evidence of aceto-white lesions. Hemostasis was achieved using Monsel solution, and the patient tolerated the procedure well. Post-Procedure Instructions: The patient was advised to promptly contact the office or the after hours [facility] service or go to the emergency room if experiencing a temperature exceeding 100.4?F, abdominal pain, nausea/vomiting, or bleeding. Additionally, the patient was instructed to abstain from vaginal intercourse and bathtub use. The patient confirmed understanding of these instructions. Discharge Instructions: The patient was instructed to schedule a follow-up appointment in 2 weeks for further evaluation and management. Please note that this note was generated using a voice recognition program, and errors may have occurred during marker shipments. [id number] of cervix including upper vagina with biopsy and ECC Procedure code (CPT) selection complete Assessment & Plan Assessment & Plan (1) ASCUS with positive high risk HPV cervical: Code(s): R87.610 - Atypical squamous cells of undetermined significance on cytologic smear of cervix (ASC-US); R87.810 - Cervical high risk human papillomavirus (HPV) DNA test positive Category: Medical Plan: Discussed with the patient the result of her abnormal pap, its significance, risk of progression, persistence, and regression. the false positive/negative rate of a Pap smear as a screening test in detecting cervical cancer and the indication for a diagnostic test -colposcopy, biopsy, endocervical curettage. The patient verbalized understanding and agreed with the plan, all questions answered. Colposcopy, biopsy /ECC done, see procedure note Orders: Orders AMB Colposcopy Today R87.610 - Atypical squamous cells of undetermined significance on cytologic smear of cervix (ASC-US), R87.810 - Cervical high risk human papillomavirus (HPV) DNA test positive Coding Level of Care Code Procedure Only Diagnoses ASCUS with positive high risk HPV cervical R87.610; R87.810 CPT Codes Colposcopy - CPT: 66633-[id number] of cervix including upper vagina with biopsy and ECC ([id number])
--- OUTSIDE RECORDS SUMMARY | 2025-07-20 18:10 | XMS_ITS | Clinical Summary ---
Author Organization [facility] Address [address] [place] [id number] Phone Care Team Providers Care Guest Services Representative Name Role Phone Pcp, Unknown Primary Care [...] Not on file Insurance ADMINISTRATORS ADMINISTRATORS ADMINISTRATORS [employer] BENEFITS ADMINISTRATORS [employer] BENEFITS ADMINISTRATORS [employer] BENEFITS ADMINISTRATORS [employer] BENEFITS ADMINISTRATORS [employer] BENEFITS ADMINISTRATORS Care Teams Guest Services Representative Relationship Specialty Start Date End Date Pcp, Unknown PCP - General 08/03/21 Additional Source Comments The information contained in this document represents components of the legal health record. It is not the complete legal health record.[facility]
== END 2025-07-20 15:02 | disposition home or self-care (01) ==
LOC: HO.HWS 14:26
PROVIDERS: Visit Provider Obstetrics & Gynecology
DX: R87.610 Atypical squamous cells of undetermined significance on cytologic smear of cervix (ASC-US) (principal); R87.810 Cervical high risk human papillomavirus (HPV) DNA test positive
CPT/HCPCS: 57454

== ENCOUNTER 2025-07-20 14:26 | Outpatient (REF) | payer OTHER, SELFPAY | END 2025-07-20 14:27 | disposition home or self-care (01) | LOC: HO.LNP 14:26 | PROVIDERS: Visit Provider Obstetrics & Gynecology | DX: R87.810 Cervical high risk human papillomavirus (HPV) DNA test positive (principal); N87.0 Mild cervical dysplasia | CPT/HCPCS: 57454; 88305 ==

== ENCOUNTER 2025-08-03 15:45 | Outpatient (AMB) | payer OTHER, SELFPAY ==
--- NOTE | 2025-08-03 15:48 | A.OFFVIS_ITS ---
Intake Visit Reasons: colpo follow up Allergies Penicillins (PENICILLINS) Allergy (Intermediate, Verified 08/03/25 15:48) RASH HPI Comments Details: Presenting post colpo for follow-up. The patient is doing well with no complaints. The pathology showed the following: A. Endocervix, curettage: Fragments of benign endocervical glands and squamous mucosa with atrophic changes; negative for squamous intraepithelial lesion. B. Cervix, 1 o'clock, biopsy: Squamous mucosa with atrophic changes; negative for squamous intraepithelial lesion. C. Cervix, 4 o'clock, biopsy: Chronic cervicitis with reactive epithelial changes; negative for squamous intraepithelial lesion. D. Cervix, 11 o'clock, biopsy: Chronic cervicitis and focal hemosiderin disposition; negative for squamous intraepithelial lesion. E. Cervix, 12 o'clock, biopsy: Benign endocervical mucosa; no squamous mucosa seen; negative for squamous intraepithelial lesion. COMMENT: The atypical cells noted in the patient's previous Pap smear (CY25- 1136; ASCUS; HPV+) may be title insurance sales representative by the reactive epithelial changes seen above. Clinical correlation is advised [facility] Medical History Chronic idiopathic constipation Abnormal appearance of cervix Undifferentiated connective tissue disease Sessile serrated polyp of colon Multiple sclerosis GERD (gastroesophageal reflux disease) Chronic constipation Palpitations Surgical History Hx of colonoscopy History of endometrial ablation Family History Mother Uterus cancer Rheumatoid arthritis Fibromyalgia CAD (coronary artery disease) Angina pectoris, unspecified Father Lupus Brain aneurysm Sister Cervical cancer Maternal Aunt Breast cancer, Onset Age: 35 Maternal Grandmother History of heart attack DM2 (diabetes mellitus, type 2) Other Mental health disorder Substance use disorder Social History Household Members: Spouse Housing: House Are you a primary child day care center worker to a significant other at home: No Do you presently have visiting nurse or other home services: No Alcohol intake: never Patient Tobacco Use Status: Never used Tobacco service: No Current occupational status: employed Current occupation: [employer] Current occupational exposures/hazards: No Sexual orientation: Straight/Heterosexual Gender identity: Female Review of Systems Const All systems reviewed & are unremarkable except as noted in HPI and below Reports as per HPI and Reports no additional complaints GI Reports no additional complaints Reports no additional complaints Assessment & Plan Assessment & Plan (1) ASCUS with positive high risk HPV cervical: Code(s): R87.610 - Atypical squamous cells of undetermined significance on cytologic smear of cervix (ASC-US); R87.810 - Cervical high risk human papillomavirus (HPV) DNA test positive Category: Medical Plan: Discussed with the patient the pathology results of the colposcopy biopsies & endocervical curettage . Discussed with the patient the sensitivity specificity, positive and negative predictive value in detecting cervical cancer in addition discussed the regression, persistence and progression rates. Recommended co-testing in 12 months, if cytology and or HPV are abnormal will proceed was colposcopy biopsy and endocervical curettage. Instructions given to the patient to schedule a co test appointment in 1 year. All questions answered the patient verbalized understanding. Coding Level of Care Code Est Pt Level 3 (97805) Diagnoses ASCUS with positive high risk HPV cervical R87.610; R87.810
--- OUTSIDE RECORDS SUMMARY | 2025-08-03 16:58 | XMS_ITS ---
Author Organization Unknown ENCOUNTERS Encounter Performer Location Date Diagnosis Diagnosis Status Pre Admit [address] [address] [id number] [address] [id number] [place] Pre Admit [address] [id number] [address] [id number] [place] *Note: Encounters from your own facility or health system may be excluded. Allergies, Adverse Reactions, Alerts Allergen Type Severity Identification Date Medications Name Date Quantity Days Supplied GPI Number
--- OUTSIDE RECORDS SUMMARY | 2025-08-03 16:58 | XMS_ITS | Clinical Summary ---
Author Organization [facility] Address [address] [place] [id number] Phone Care Team Providers Care Mainspring Strip Gauger Name Role Phone Pcp, Unknown Primary Care [...] Not on file Insurance ADMINISTRATORS ADMINISTRATORS ADMINISTRATORS [employer] BENEFITS ADMINISTRATORS [employer] BENEFITS ADMINISTRATORS [employer] BENEFITS ADMINISTRATORS [employer] BENEFITS ADMINISTRATORS [employer] BENEFITS ADMINISTRATORS Care Teams Mainspring Strip Gauger Relationship Specialty Start Date End Date Pcp, Unknown PCP - General 08/03/21 Additional Source Comments The information contained in this document represents components of the legal health record. It is not the complete legal health record.[facility]
== END 2025-08-03 16:13 | disposition home or self-care (01) ==
PROVIDERS: Visit Provider Obstetrics & Gynecology
DX: R87.610 Atypical squamous cells of undetermined significance on cytologic smear of cervix (ASC-US) (principal); R87.810 Cervical high risk human papillomavirus (HPV) DNA test positive
CPT/HCPCS: 99213